=== PATIENT | female | born 1945 | race Caucasian/White ===

== ENCOUNTER 2016-05-10 16:44 | Inpatient (IN) | payer MEDICARE ==
--- NOTE | 2016-05-10 16:58 | ED ---
General Adult HPI - General Chief complaint: Neuro Symptoms/Deficit Stated complaint: facial droop, eye problem Time Seen by Provider: 05/10/16 16:45 Source: patient, RN notes reviewed Mode of arrival: wheelchair Limitations: no limitations - History of Present Illness Initial comments: This is a 70-year-old female presents to the emergency department stating that a few hours ago her granddaughter noticed that her mouth was drooping on the right. Patient states she also notices that her eyelid shut is hard on the right is a dozen the left. Patient denies any headache patient denies any numbness or weakness. Patient denies any visual disturbance or speech disturbance. Patient denies any chest pain palpitations difficulty breathing or shortness of breath per patient denies any recent fever chills or cough. Patient denies abdominal pain patient denies nausea vomiting diarrhea. Patient denies any recent injury or trauma - Related Data Home Medications Medication Instructions Recorded Confirmed Atenolol [Tenormin] 25 mg PO DAILY 12/23/13 05/10/16 Folic Acid 1 mg PO DAILY 12/23/13 05/10/16 Methotrexate Sodium [Methotrexate] 15 mg PO TH 12/23/13 05/10/16 Omeprazole [PriLOSEC] 20 mg PO AC-BID 12/23/13 05/10/16 Simvastatin [Zocor] 20 mg PO HS 12/23/13 05/10/16 Zolpidem [Ambien] 5 mg PO HS PRN 12/23/13 05/10/16 amLODIPine BESYLATE [Norvasc] 5 mg PO BID 12/23/13 05/10/16 traMADol-ACETAMINOP 37.5-325MG 1 tab PO Q4HR PRN 12/23/13 05/10/16 [Ultracet] Aspirin EC [Ecotrin] 325 mg PO DAILY 05/10/16 05/10/16 Calcium Carbonate [Calcium] 600 mg PO BID 05/10/16 05/10/16 Celecoxib [CeleBREX] 200 mg PO DAILY 05/10/16 05/10/16 Escitalopram [Lexapro] 10 mg PO DAILY 05/10/16 05/10/16 Allergies Allergy/AdvReac Type Severity Reaction Status Date / Time shellfish derived Allergy Rash/Hives Verified 05/10/16 17:18 Review of Systems ROS Statement: Those systems with pertinent positive or pertinent negative responses have been documented in the HPI. ROS Other: All systems not noted in ROS Statement are negative. Past Medical History Past Medical History: GERD/Reflux, Hypertension History of Any Multi-Drug Resistant Organisms: None Reported Past Surgical History: Cholecystectomy, Hysterectomy Additional Past Surgical History / Comment(s): abliation, breast reducion, heart cath Past Psychological History: No Psychological Hx Reported Smoking Status: Former smoker Past Alcohol Use History: None Reported Past Drug Use History: None Reported General Exam - General Exam Comments Initial Comments: GENERAL: Patient is well-developed and well-nourished. Patient is nontoxic and well- hydrated and is in no acute distress. ENT: Neck is soft and supple. No significant lymphadenopathy is noted. Oropharynx is clear. Moist mucous membranes. Neck has full range of motion without eliciting any pain. EYES: The sclera were anicteric and conjunctiva were pink and moist. Extraocular movements were intact and pupils were equal round and reactive to light. Eyelids were unremarkable. PULMONARY: Unlabored respirations. Good breath sounds bilaterally. No audible rales rhonchi or wheezing was noted. CARDIOVASCULAR: There is a regular rate and rhythm without any murmurs gallops or rubs. ABDOMEN: Soft and nontender with normal bowel sounds. No palpable organomegaly was noted. There is no palpable pulsatile mass. SKIN: Skin is clear with no lesions or rashes and otherwise unremarkable. NEUROLOGIC: Patient is alert and oriented x3. Patient has right facial droop as well as weakness in the closure of her right eyelid. Currently forehead does not appear to be involved Motor and sensory are also intact. Normal speech, volume and content. MUSCULOSKELETAL: Normal extremities with adequate strength and full range of motion. No lower extremity swelling or edema. No calf tenderness. LYMPHATICS: No significant lymphadenopathy is noted PSYCHIATRIC: Normal psychiatric evaluation. Limitations: no limitations Course Vital Signs 05/10/16 05/10/16 05/10/16 16:47 17:35 18:11 Temperature 98.2 F Pulse Rate 81 69 85 Respiratory 18 20 20 Rate Blood Pressure 165/69 142/74 129/62 O2 Sat by Pulse 95 96 97 Oximetry Medical Decision Making - Medical Decision Making EKG shows normal sinus rhythm at 72 bpm MT interval is 128 QRSs 82 QT interval is 428 QTC is 468. Patient's EKG shows no ST segment elevation or depression or T-wave abdomen is noted. - Lab Data Result diagrams: 05/10/16 17:00 05/10/16 17:00 Lab Results 05/10/16 05/10/16 05/10/16 Range/Units 17:00 17:00 17:00 WBC 9.7 (3.8-10.6) k/uL RBC 4.09 (3.80-5.40) m/uL Hgb 13.1 (11.4-16.0) gm/dL Hct 39.7 (34.0-46.0) % MCV 96.9 (80.0-100.0) fL MCH 31.9 (25.0-35.0) pg MCHC 32.9 (31.0-37.0) g/dL RDW 14.9 (11.5-15.5) % Plt Count 230 (150-450) k/uL Neutrophils % 60 % Lymphocytes % 26 % Monocytes % 7 % Eosinophils % 4 % Basophils % 1 % Neutrophils # 5.8 (1.3-7.7) k/uL Lymphocytes # 2.5 (1.0-4.8) k/uL Monocytes # 0.7 (0-1.0) k/uL Eosinophils # 0.3 (0-0.7) k/uL Basophils # 0.1 (0-0.2) k/uL PT (9.0-12.0) sec INR (<1.1) APTT (22.0-30.0) sec Sodium 141 (137-145) mmol/L Potassium 4.1 (3.5-5.1) mmol/L Chloride 102 (98-107) mmol/L Carbon Dioxide 26 (22-30) mmol/L Anion Gap 13 mmol/L BUN 20 H (7-17) mg/dL Creatinine 0.81 (0.52-1.04) mg/dL Est GFR (MDRD) Af Amer >60 (>60 ml/min/1.73 sqM) Est GFR (MDRD) Non-Af >60 (>60 ml/min/1.73 sqM) Glucose 114 H (74-99) mg/dL Calcium 9.6 (8.4-10.2) mg/dL Total Bilirubin 0.6 (0.2-1.3) mg/dL AST 26 (14-36) U/L ALT 33 (9-52) U/L Alkaline Phosphatase 116 (38-126) U/L Total Creatine Kinase 60 (30-135) U/L CK-MB (CK-2) 0.8 (0.0-2.4) ng/mL CK-MB (CK-2) Rel Index 1.3 Troponin I <0.012 (0.000-0.034) ng/mL Total Protein 7.6 (6.3-8.2) g/dL Albumin 4.5 (3.5-5.0) g/dL 05/10/16 Range/Units 17:00 WBC (3.8-10.6) k/uL RBC (3.80-5.40) m/uL Hgb (11.4-16.0) gm/dL Hct (34.0-46.0) % MCV (80.0-100.0) fL MCH (25.0-35.0) pg MCHC (31.0-37.0) g/dL RDW (11.5-15.5) % Plt Count (150-450) k/uL Neutrophils % % Lymphocytes % % Monocytes % % Eosinophils % % Basophils % % Neutrophils # (1.3-7.7) k/uL Lymphocytes # (1.0-4.8) k/uL Monocytes # (0-1.0) k/uL Eosinophils # (0-0.7) k/uL Basophils # (0-0.2) k/uL PT 9.8 (9.0-12.0) sec INR 1.0 (<1.1) APTT 23.7 (22.0-30.0) sec Sodium (137-145) mmol/L Potassium (3.5-5.1) mmol/L Chloride (98-107) mmol/L Carbon Dioxide (22-30) mmol/L Anion Gap mmol/L BUN (7-17) mg/dL Creatinine (0.52-1.04) mg/dL Est GFR (MDRD) Af Amer (>60 ml/min/1.73 sqM) Est GFR (MDRD) Non-Af (>60 ml/min/1.73 sqM) Glucose (74-99) mg/dL Calcium (8.4-10.2) mg/dL Total Bilirubin (0.2-1.3) mg/dL AST (14-36) U/L ALT (9-52) U/L Alkaline Phosphatase (38-126) U/L Total Creatine Kinase (30-135) U/L CK-MB (CK-2) (0.0-2.4) ng/mL CK-MB (CK-2) Rel Index Troponin I (0.000-0.034) ng/mL Total Protein (6.3-8.2) g/dL Albumin (3.5-5.0) g/dL Disposition Clinical Impression: Cerebrovascular accident, See's palsy, Meningioma Disposition: ADMITTED IP TO THIS [facility] Time of Disposition: 18:44
[2016-05-10 17:13] LABS: Basophils # (A) 0.1 k/uL (0-0.2); Basophils % (A) 1 %; CH 32.1; CHCM 33.3; Eosinophils # (A) 0.3 k/uL (0-0.7); Eosinophils % (A) 4 %; HCT 39.7 % (34.0-46.0); HDW 2.74; HGB 13.1 gm/dL (11.4-16.0); Luc # (Auto) 0.27; Luc % (Auto) 3; Lymphocytes # (A) 2.5 k/uL (1.0-4.8); Lymphocytes % (A) 26 %; MCH 31.9 pg (25.0-35.0); MCHC 32.9 g/dL (31.0-37.0); MCV 96.9 fL (80.0-100.0); Mean Platelet Volume 7.7; Monocytes # (A) 0.7 k/uL (0-1.0); Monocytes % (A) 7 %; Neutrophils # (A) 5.8 k/uL (1.3-7.7); Neutrophils % (A) 60 %; RBC 4.09 m/uL (3.80-5.40); RDW 14.9 % (11.5-15.5); WBC 9.7 k/uL (3.8-10.6)
[2016-05-10 17:20] LABS: ALT 33 U/L (9-52); AST 26 U/L (14-36); Alkaline Phosphatase 116 U/L (38-126); Anion Gap 13 mmol/L; Blood Urea Nitrogen 20 mg/dL (7-17); Calcium 9.6 mg/dL (8.4-10.2); Carbon Dioxide 26 mmol/L (22-30); Chloride 102 mmol/L (98-107); Glucose 114 mg/dL (74-99); Non-African American GFR(MDRD) >60 (>60 ml/min/1.73 sqM); Potassium 4.1 mmol/L (3.5-5.1); Sodium 141 mmol/L (137-145); Total Bilirubin 0.6 mg/dL (0.2-1.3); Total Protein 7.6 g/dL (6.3-8.2)
[2016-05-10 17:31] LABS: Creatine Kinase 60 U/L (30-135)
[2016-05-10 17:32] LABS: Partial Thromboplastin Time 23.7 sec (22.0-30.0); Prothrombin Time 9.8 sec (9.0-12.0)
[2016-05-10 17:44] LABS: Creatine Kinase MB 0.8 ng/mL (0.0-2.4); Troponin I <0.012 ng/mL (0.000-0.034)
--- NOTE | 2016-05-10 17:44 | CT ---
EXAMINATION TYPE: CT brain wo con DATE OF EXAM: 05/10/2016 5:26 PM COMPARISON: NONE HISTORY: PT states of left facial droop. CT DLP: 938.0 mGycm Automated exposure control for dose reduction was used. FINDINGS: There is a high attenuation mass involving the left side of the sphenoid bone at the greater wing and anterior clinoid process. This measures 3.2 x 2.4 cm. There is no midline shift. I do not see a defi nite sellar mass. The ventricles have normal size. There is no hydrocephalus. Calvarium is intact. IMPRESSION: There is a high attenuation mass that is somewhat wrapped around the anterior and posterior clinoid p rocesses consistent with a large sphenoid wing meningioma. Hemorrhage in the mass cannot be entirely excluded. There is high attenuation in the mass that is probably calcium. No hydrocephalus. MR scan o r contrast CT scan could probably confirm the presence of a meningioma.
--- NOTE | 2016-05-10 17:45 | XR ---
EXAMINATION TYPE: XR chest 2V DATE OF EXAM: 05/10/2016 5:32 PM COMPARISON: 11/28/2015 HISTORY: Left side facial droop TECHNIQUE: Frontal and lateral views of the chest are obtained. FINDINGS: Heart is normal. Thoracic aorta is atheromatous. Lungs are clear of infiltrate. There is n o heart failure. There is no pleural effusion. There are no hilar masses. IMPRESSION: No active cardiopulmonary disease. No change.
[2016-05-10] MEDS ORDERED: RX INFO: IV CONTRAST WAS GIVEN 1 EACH MISC MISCELLANE PRN (17:57)
[2016-05-10] MEDS ORDERED: diphenhydrAMINE 50 MG/ML 1 ML VIAL IVP STA (18:02)
[2016-05-10] MEDS ORDERED: FAMOTIDINE 20 MG/2 ML VIAL IV STA (18:02)
[2016-05-10] MEDS ORDERED: methylPREDNISolone SOD SUCCI 125 MG/2 ML VIAL IV STA (18:02)
--- NOTE | 2016-05-10 18:41 | CT ---
EXAMINATION TYPE: CT brain w con DATE OF EXAM: 05/10/2016 6:32 PM COMPARISON: Today HISTORY: R/O bleed vs. Mass CT DLP: 962.8 mGycm Automated exposure control for dose reduction was used. CONTRAST: CT scan of the head is performed with IV Contrast, patient injected with 100 mL of Omnipaque 300. FINDINGS: There is a densely enhancing 3.5 x 3 x 2.5 cm mass on the left side at the greater wing of the spheno id bone and involving the anterior and posterior clinoid process. This is consistent with a sphenoid wing meningioma. There is no evidence of hemorrhage. There is no hydrocephalus. No other lesion is id entified. The mass encroaches upon the sella turcica from the left side. IMPRESSION: Densely enhancing extra-axial mass has features of a large sphenoid wing meningioma. No evidence of h emorrhage.
[2016-05-10 20:02] VITALS: BMI 28.3
[2016-05-10] MEDS ORDERED: traMADol-ACETAMINOP 37.5-325MG 1 EACH TAB PO PRN (20:57)
[2016-05-10] MEDS ORDERED: ARTIFICIAL TEARS-HYPROMELLOSE DROPS 15 ML BTL BOTH EYES PRN (20:59)
[2016-05-10] MEDS: ATORVASTATIN 10 MG TAB PO SCH (22:28)
[2016-05-10] MEDS: predniSONE 20 MG TAB PO SCH (22:28)
[2016-05-10] MEDS: CALCIUM CARBONATE 500 MG CHEWABLE PO SCH (22:28)
[2016-05-10] MEDS: valACYclovir 500 MG TAB PO SCH (22:28)
[2016-05-10] MEDS: amLODIPine 5 MG TAB PO SCH (22:28)
[2016-05-10] MEDS: ZOLPIDEM 5 MG TAB PO PRN (22:29)
[2016-05-11] MEDS: PANTOPRAZOLE 40 MG TABLET PO SCH ×2 (06:18→17:40)
[2016-05-11] MEDS: amLODIPine 5 MG TAB PO SCH ×2 (10:01→20:35)
[2016-05-11] MEDS: ASPIRIN 325 MG TAB PO SCH (10:01)
[2016-05-11] MEDS: ATENOLOL 25 MG TAB PO SCH (10:02)
[2016-05-11] MEDS: FOLIC ACID 1 MG TAB PO SCH (10:02)
[2016-05-11] MEDS: MELOXICAM 7.5 MG TAB PO SCH (10:03)
[2016-05-11] MEDS: predniSONE 20 MG TAB PO SCH (10:04)
[2016-05-11] MEDS: valACYclovir 500 MG TAB PO SCH ×2 (10:05→20:36)
[2016-05-11] MEDS: CALCIUM CARBONATE 500 MG CHEWABLE PO SCH ×2 (10:58→20:35)
[2016-05-11] MEDS ORDERED: Magnesium Replacement Protocol 1 EACH MISC MISCELLANE PRN (11:29)
[2016-05-11] MEDS ORDERED: Potassium Replacement Protocol 1 EACH MISC MISCELLANE PRN (11:29)
--- NOTE | 2016-05-11 11:32 | US ---
EXAMINATION TYPE: US carotid duplex BILAT DATE OF EXAM: 05/11/2016 8:49 AM COMPARISON: NONE CLINICAL HISTORY: Stenosis. Pt states facial drooping and slurred speech EXAM MEASUREMENTS: RIGHT: Peak Systolic Velocity (PSV) cm/sec ----- Right CCA: 75.7 ----- Right ICA: 139.7 ----- Right ECA: 116.1 ICA/CCA ratio: 1.8 RIGHT: End Diastole cm/sec ----- Right CCA: 20.8 ----- Right ICA: 35.3 ----- Right ECA: 0.0 LEFT: Peak Systolic Velocity (PSV) cm/sec ----- Left CCA: 96.9 ----- Left ICA: 151.5 ----- Left ECA: 197.6 ICA/CCA ratio: 1.6 LEFT: End Diastole cm/sec ----- Left CCA: 19.3 ----- Left ICA: 37.2 ----- Left ECA: 19.2 VERTEBRALS (direction of flow): Right Vertebral: Antegrade Left Vertebral: Antegrade IMPRESSION: Elevated velocities, more on left, with heterogeneous plaque bilaterally. No hemodynami kary significant stenosis. Criteria for Assigning % of Stenosis / Diameter reduction (Estimation based on the indirect measurements of the internal carotid artery velocities (ICA PSV). 1. Normal (no stenosis)=ICA PSV < 125 cm/s: ratio < 2.0: ICA EDV<40 cm/s. 2. Less than 50% stenosis=ICA PSV < 125 cm/s: ratio < 2.0: ICA EDV<40 cm/s. 3. 50 to 69% stenosis=ICA PSV of 125 to 230 cm/s: ration 2.0 ? 4.0: ICA EDV 40-100 cm/s. 4. Greater than 70% stenosis to near occlusion= ICA PSV > 230 cm/s: ratio > 4.0: ICA EDV > 100 cm/s. 5. Near occlusion= ICA PSV velocities may be low or undetectable: variable ratio and ICA EDV. 6. Total occlusion=unable to detect flow.
--- NOTE | 2016-05-11 12:01 | P.CNNES ---
History of Present Illness Consult date: 05/11/16 Reason for Consult: Patient with right sided facial droop and possible stroke. History of Present Illness: This patient is a 70-year-old right-handed white female who was in her usual state of health until yesterday. Patient was at home and apparently her granddaughter noticed that she had sudden onset of right-sided facial drooping. The patient immediately checked in the mirror and noticed that she was having a drooping on the right side of her face. She was having trouble closing her right eyelid since well. She denied any headache or change in her speech during this event. The granddaughter recommended that she go to the emergency room for evaluation. She was seen in the ER by Dr. Calvin who recommended she have a computed tomography scan of the brain. CAT scan of the brain was done and revealed a densely enhancing extra-axial mass involving the left sphenoid wing suggesting possible sphenoid wing meningioma. There was no evidence of hydrocephalus or other extraneous lesions. Patient has no previous history of having computed tomography scan of the brain done in the past. This appears to be an incidental finding on CAT scan of the brain done yesterday. Patient denies any headache. She has no hearing loss or visual changes. On examination she is noted to have right-sided facial droop. This appears to be a lower motor neuron facial weakness pattern. She denies any recent fever or chills. She denies any recent episode of ear infections. She did not experience any change in taste sensation since the episode yesterday. She was evaluated in the ER by Dr. Calvin and there was concern for possibility of brainstem stroke. She was subsequently admitted to the hospital. Her clinical history is more suggestive of an acute right-sided Merritt's palsy. This will be verified on neurological examination today. She has no previous history of having Merritt's palsy. She denies any changes in her hearing levels since the episode yesterday. She has no previous history of TIA or stroke. We've reviewed the CAT scan results of the brain with the patient. We have recommended an MRI of the brain for further evaluation. This should be further followed up with neurosurgery regarding the sphenoid wing meningioma. Patient otherwise seems to be doing well today. We would recommend that she be started on a Medrol Dosepak for further management of acute right-sided Merritt's palsy. Neurology is now been consulted for further evaluation and recommendations. Review of Systems Constitutional: Denies chills, Denies fever Eyes: denies blurred vision, denies pain Ears, nose, mouth and throat: Denies headache, Denies sore throat Cardiovascular: Denies chest pain, Denies shortness of breath Respiratory: Denies cough Gastrointestinal: Denies abdominal pain, Denies diarrhea, Denies nausea, Denies vomiting Genitourinary: Denies dysuria, Denies hematuria Musculoskeletal: Denies myalgias Integumentary: Denies pruritus, Denies rash Neurological: Reports paralysis, Denies numbness, Denies weakness Psychiatric: Denies anxiety, Denies depression Endocrine: Denies fatigue, Denies weight change Past Medical History Past Medical History: Coronary Artery Disease (CAD), GERD/Reflux, Hypertension, Rheumatoid Arthritis (RA) Additional Past Medical History / Comment(s): Pt states she has something wrong with her aorta but isn't sure what. History of Any Multi-Drug Resistant Organisms: None Reported Past Surgical History: Cholecystectomy, Hysterectomy Additional Past Surgical History / Comment(s): abliation, breast reducion, heart cath Past Psychological History: No Psychological Hx Reported Smoking Status: Former smoker Past Alcohol Use History: None Reported Past Drug Use History: None Reported - Past Family History Mother Family Medical History: Diabetes Mellitus Brother(s) Family Medical History: Diabetes Mellitus, Rheumatoid Arthritis (RA) Sister(s) Family Medical History: Rheumatoid Arthritis (RA) Medications and Allergies Home Medications Medication Instructions Recorded Confirmed Type Atenolol [Tenormin] 25 mg PO DAILY 12/23/13 05/10/16 History Folic Acid 1 mg PO DAILY 12/23/13 05/10/16 History Methotrexate Sodium [Methotrexate] 15 mg PO TH 12/23/13 05/10/16 History Omeprazole [PriLOSEC] 20 mg PO AC-BID 12/23/13 05/10/16 History Simvastatin [Zocor] 20 mg PO HS 12/23/13 05/10/16 History Zolpidem [Ambien] 5 mg PO HS PRN 12/23/13 05/10/16 History amLODIPine BESYLATE [Norvasc] 5 mg PO BID 12/23/13 05/10/16 History traMADol-ACETAMINOP 37.5-325MG 1 tab PO Q4HR PRN 12/23/13 05/10/16 History [Ultracet] Aspirin EC [Ecotrin] 325 mg PO DAILY 05/10/16 05/10/16 History Calcium Carbonate [Calcium] 600 mg PO BID 05/10/16 05/10/16 History Celecoxib [CeleBREX] 200 mg PO DAILY 05/10/16 05/10/16 History Allergies Allergy/AdvReac Type Severity Reaction Status Date / Time shellfish derived Allergy Rash/Hives Verified 05/10/16 17:18 Physical Examination - Vital Signs Vital Signs: Vital Signs Temp Pulse Pulse Resp BP BP Pulse Ox 05/11/16 09:44 97.2 F L 84 16 133/69 94 L 05/11/16 03:56 97 F L 80 16 129/70 95 05/10/16 23:42 97 F L 78 16 125/65 95 05/10/16 19:44 97.7 F 68 16 142/73 93 L 05/10/16 19:42 97.8 F 71 18 142/73 93 L 05/10/16 19:08 98.2 F 74 20 126/78 96 Intake and Output 05/10/16 05/11/16 05/11/16 22:59 06:59 14:59 Intake Total 310 10 120 Output Total 300 400 Balance 310 -290 -280 Intake: IV 10 10 0.9% NS flush 10 mL 10 10 Oral 300 120 Output: Urine 300 400 Other: # Voids 0 1 0 Weight 74.843 kg 78.4 kg - Constitutional General appearance: average body habitus, cooperative - EENT EENT: mucous membranes moist - Respiratory Respiratory: lungs clear, normal breath sounds - Cardiovascular Cardiovascular: regular rate, normal S1, normal S2 Extremities: no peripheral edema bilaterally - Gastrointestinal Gastrointestinal: normoactive bowel sounds - Integumentary Integumentary: normal - Neurologic Cranial nerve examination: PERRL, EOMI, VFF, V1/V2/V3 grossly intact, tongue midline, intact gag reflex, facial droop (Patient has a right lower motor neuron facial weakness pattern on exam.) Speech examination: intact Sensorimotor examination: intact Detailed motor examination: grossly full strength in all extremities Motor examination - right side: 5/5: biceps, triceps, wrist flexion, wrist extension, fire sprinkler fitter, hip flexors, knee extensors, dorsiflexion, toe extension (EHL) , plantarflexion Motor examination - left side: 5/5: biceps, triceps, wrist flexion, wrist extension, fire sprinkler fitter, hip flexors, knee extensors, dorsiflexion, toe extension (EHL) , plantarflexion Detailed sensory examination: intact Reflex and gait examination: intact Reflexes: 1+: ankle, bicep, knee, tricep - Musculoskeletal Musculoskeletal: no pain - Psychiatric Psychiatric: mood/affect appropriate, cooperative Results - Laboratory Findings CBC and BMP: 05/10/16 17:00 05/10/16 17:00 Assessment and Plan (1) Merritt's palsy Status: Acute Code(s): G51.0 - MERRITT'S PALSY (2) 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 She was brought into the emergency room yesterday and underwent a computed tomography scan of the brain. A CAT scan of the brain revealed evidence of a large left sphenoid wing meningioma. Her right -sided facial weakness was felt to possibly represent a stroke versus Merritt's palsy. Her neurological examination today reveals clinical findings of a idiopathic right-sided Merritt's palsy. We have recommended that she undergo an MRI of the brain for further evaluation of the left sphenoid wing meningioma. Would also recommend a course of steroid for treatment of the acute Merritt's palsy. She is also instructed to patch the right eye when sleeping at night. She is to continue to use artificial tears 3-4 times a day. Patient will be further evaluated after MRI testing is completed. Patient will likely need further neurosurgical evaluation for this sphenoid wing meningioma. We will continue to follow her progress closely during this admission. Overall prognosis at this time remains guarded. Time with Patient: Greater than 30
--- NOTE | 2016-05-11 13:38 | P.HPIM ---
History of Present Illness Chief Complaint: Right facial droop This is 70-year-old female with past medical history noted below who presented to the hospital with right facial droop. Patient said that she was doing fairly well up until yesterday when her daughter noticed significant right facial droop and she was having trouble closing her right eyelid. Patient was concern and came to the emergency room for further evaluation. Patient denies any headache or vision change. No prior stroke. No muscle weakness or numbness anywhere in her body. No difficulty with her speech. Patient was evaluated in the emergency room and computed tomography scan of the brain showed no evidence of acute stroke. There was an incidental hemangioma noted on CAT scan. Patient was admitted to the hospital for further evaluation. Review of Systems Review of system: 14 points review of systems were obtained and were negative except to what were mentioned in the HPI. Past Medical History Past Medical History: Coronary Artery Disease (CAD), GERD/Reflux, Hypertension, Rheumatoid Arthritis (RA) Additional Past Medical History / Comment(s): Pt states she has something wrong with her aorta but isn't sure what. History of Any Multi-Drug Resistant Organisms: None Reported Past Surgical History: Cholecystectomy, Hysterectomy Additional Past Surgical History / Comment(s): abliation, breast reducion, heart cath Past Psychological History: No Psychological Hx Reported Smoking Status: Former smoker Past Alcohol Use History: None Reported Past Drug Use History: None Reported - Past Family History Mother Family Medical History: Diabetes Mellitus Brother(s) Family Medical History: Diabetes Mellitus, Rheumatoid Arthritis (RA) Sister(s) Family Medical History: Rheumatoid Arthritis (RA) Medications and Allergies Home Medications Medication Instructions Recorded Confirmed Type Atenolol [Tenormin] 25 mg PO DAILY 12/23/13 05/10/16 History Folic Acid 1 mg PO DAILY 12/23/13 05/10/16 History Methotrexate Sodium [Methotrexate] 15 mg PO TH 12/23/13 05/10/16 History Omeprazole [PriLOSEC] 20 mg PO AC-BID 12/23/13 05/10/16 History Simvastatin [Zocor] 20 mg PO HS 12/23/13 05/10/16 History Zolpidem [Ambien] 5 mg PO HS PRN 12/23/13 05/10/16 History amLODIPine BESYLATE [Norvasc] 5 mg PO BID 12/23/13 05/10/16 History traMADol-ACETAMINOP 37.5-325MG 1 tab PO Q4HR PRN 12/23/13 05/10/16 History [Ultracet] Aspirin EC [Ecotrin] 325 mg PO DAILY 05/10/16 05/10/16 History Calcium Carbonate [Calcium] 600 mg PO BID 05/10/16 05/10/16 History Celecoxib [CeleBREX] 200 mg PO DAILY 05/10/16 05/10/16 History Allergies Allergy/AdvReac Type Severity Reaction Status Date / Time shellfish derived Allergy Rash/Hives Verified 05/10/16 17:18 Physical Exam Vitals: Vital Signs Temp Pulse Pulse Resp BP BP Pulse Ox 05/11/16 09:44 97.2 F L 84 16 133/69 94 L 05/11/16 03:56 97 F L 80 16 129/70 95 05/10/16 23:42 97 F L 78 16 125/65 95 05/10/16 19:44 97.7 F 68 16 142/73 93 L 05/10/16 19:42 97.8 F 71 18 142/73 93 L 05/10/16 19:08 98.2 F 74 20 126/78 96 Intake and Output 05/10/16 05/11/16 05/11/16 22:59 06:59 14:59 Intake Total 310 10 360 Output Total 300 400 Balance 310 -290 -40 Intake: IV 10 10 0.9% NS flush 10 mL 10 10 Oral 300 360 Output: Urine 300 400 Other: # Voids 0 1 0 Weight 74.843 kg 78.4 kg General: The patient is awake and alert, in no distress. There is evidence of right facial drooping Neck: The neck is supple, there is no JVD. Cardiovascular: Normal S1-S2, no S3-S4, no murmurs. Respiratory: Lungs clear to auscultation bilaterally Gastrointestinal: Abdomen is soft, nontender Musculoskeletal: There is no pedal edema. Neurological:. Speech is normal. Skin: Skin is warm and dry Results CBC & Chem 7: 05/10/16 17:00 05/10/16 17:00 Thrombosis Risk Factor Assmnt - Choose All That Apply Any of the Below Risk Factors Present?: Yes Each Factor Represents 1 point: Obesity (BMI >25) Each Risk Factor Represents 2 Points: Age 61-74 years Thrombosis Risk Factor Assessment Total Risk Factor Score: 3 Thrombosis Risk Factor Assessment Level: Moderate Risk Assessment and Plan Plan: 1. See's palsy 2. 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 Mixed hyperlipidemia 4. Essential hypertension: Blood pressure well-controlled 5. Underlying rheumatoid arthritis This is a 70-year-old female with past medical history noted above who presented with right facial droop. Computed tomography scan of the brain showed no acute stroke. Left hemangioma noted which will be further evaluated with MRI ordered today. Patient underwent the carotid Doppler with no hemodynamically significant stenosis. She was seen and evaluated by neurology. She is currently being treated with Medrol Dosepak as well as artificial tears to the left eye. Patient was reassured. She will need to have a consultation with a neurosurgeon sometime next week after her discharge for further assessment of the abdomen hemangioma that is most likely chronic. Possible discharge home tomorrow.
[2016-05-11] MEDS: ATORVASTATIN 10 MG TAB PO SCH (20:35)
[2016-05-11] MEDS: HEPARIN SODIUM,PORCINE 5,000 UNIT/ML 1 ML VIAL SQ SCH (20:43)
[2016-05-11] MEDS: ZOLPIDEM 5 MG TAB PO PRN (22:34)
[2016-05-12 06:08] LABS: Basophils % (A) 0 %; CH 31.7; CHCM 32.7; Eosinophils % (A) 0 %; HCT 37.6 % (34.0-46.0); HDW 2.64; HGB 11.9 gm/dL (11.4-16.0); Luc % (Auto) 1; Lymphocytes # (A) 2.1 k/uL (1.0-4.8); Lymphocytes % (A) 10 %; MCH 30.8 pg (25.0-35.0); MCHC 31.6 g/dL (31.0-37.0); MCV 97.3 fL (80.0-100.0); Mean Platelet Volume 7.2; Monocytes % (A) 5 %; Neutrophils # (A) 18.4 k/uL (1.3-7.7); Neutrophils % (A) 84 %; RBC 3.87 m/uL (3.80-5.40); RDW 14.8 % (11.5-15.5); WBC 21.9 k/uL (3.8-10.6)
[2016-05-12 06:18] LABS: Anion Gap 9 mmol/L; Blood Urea Nitrogen 19 mg/dL (7-17); Calcium 9.5 mg/dL (8.4-10.2); Carbon Dioxide 29 mmol/L (22-30); Chloride 106 mmol/L (98-107); Glucose 130 mg/dL (74-99); Magnesium 2.1 mg/dL (1.6-2.3); Non-African American GFR(MDRD) >60 (>60 ml/min/1.73 sqM); Potassium 4.2 mmol/L (3.5-5.1); Sodium 144 mmol/L (137-145)
[2016-05-12] MEDS: PANTOPRAZOLE 40 MG TABLET PO SCH ×2 (06:18→16:50)
[2016-05-12] MEDS: methylPREDNISolone 4 MG TAB TAPER PO SCH (08:27)
[2016-05-12] MEDS: HEPARIN SODIUM,PORCINE 5,000 UNIT/ML 1 ML VIAL SQ SCH ×2 (08:27→21:45)
[2016-05-12] MEDS: MELOXICAM 7.5 MG TAB PO SCH (08:27)
[2016-05-12] MEDS: ATENOLOL 25 MG TAB PO SCH (08:27)
[2016-05-12] MEDS: FOLIC ACID 1 MG TAB PO SCH (08:27)
[2016-05-12] MEDS: CALCIUM CARBONATE 500 MG CHEWABLE PO SCH ×2 (08:28→21:43)
[2016-05-12] MEDS: ASPIRIN 325 MG TAB PO SCH (08:28)
[2016-05-12] MEDS: amLODIPine 5 MG TAB PO SCH ×2 (08:28→21:43)
[2016-05-12] MEDS: valACYclovir 500 MG TAB PO SCH ×2 (08:30→21:43)
--- NOTE | 2016-05-12 15:41 | MR ---
EXAMINATION TYPE: MR brain wo/w con DATE OF EXAM: 05/12/2016 3:29 PM COMPARISON: Previous CT scan of the brain dated 05/10/2016. HISTORY: Left sphenoid wing meningioma TECHNIQUE: Multiplanar, multiecho imaging of the brain was obtained with and without intravenous adm inistration of 15 mL intravenous MultiHance. FINDINGS: There is a 2.7 x 3.4 x 3.3 cm heterogenous slightly enhancing mass arising along the left s phenoid wing. This appears extra-axial and displacing adjacent brain tissue. No other enhancing lesio ns are seen. Midline structures are unremarkable. There is a normal craniocervical junction. Echoplanar diffusion imaging shows no evidence of restricted diffusion. There are normal vascular flow voids. There is dolichoectasia of the vertebrobasilar system on the le ft and this is mildly deforming the brainstem. The orbits appear normal. There is no evidence of a CP angle mass lesion. There are innumerable high signal FLAIR lesions in the deep white matter tracts of the cerebral hemis pheres. These are likely on the basis small vessel disease. I do not see evidence of midline shift or intracranial blood. IMPRESSION: 1. PROBABLE LEFT-SIDED SPHENOID WING MENINGIOMA. 2. 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 3. SCATTERED HIGH SIGNAL FLAIR LESIONS LIKELY ON THE BASIS OF SMALL VESSEL DISEASE. OTHER CAUSES OF D EMYELINATION ARE NOT EXCLUDED BUT FELT TO BE LESS LIKELY IN THIS AGE GROUP.
--- NOTE | 2016-05-12 16:18 | P.PN ---
Subjective Patient here with right sided facial droop. Concerns for See's palsy. Started on a prednisone taper. Underwent MRI today results are abnormal. We' ll have patient evaluated by neurology again this evening. Patient denies any chest pain, shortness of breath, nausea or vomiting. Denies any bowel movement changes or urinary symptoms. She's eating and swallowing without difficulty. Objective - Vital Signs Vital signs: Vital Signs Temp 98.2 F 05/12/16 12:02 Pulse 74 05/12/16 12:02 Resp 16 05/12/16 12:02 BP 139/83 05/12/16 12:02 Pulse Ox 98 05/12/16 12:02 Intake & Output 05/11/16 05/12/16 05/12/16 18:59 06:59 18:59 Intake Total 478 20 360 Output Total 1400 750 800 Balance -922 -730 -440 Weight 77.4 kg Intake: IV 20 0.9% NS flush 10 mL 20 Oral 478 360 Output: Urine 1400 750 800 Other: Voiding Method Toilet Toilet # Voids 1 1 # Bowel Movements 0 - Exam Head normocephalic Neck supple Lungs clear to auscultation bilaterally no wheezing or crackles Heart regular rate and rhythm S1-S2, no rub or gallop Abdomen is soft nontender nondistended positive bowel sounds no hepatosplenomegaly Extremities no edema Neuro alert and orientated to 3. Right facial droop. 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 Right facial droop concerns for See's palsy. Patient was started on Medrol Dosepak. However, patient has an abnormal MRI showing probable left- sided sphenoid wing meningioma. Dolichoectasia of the vertebrobasilar system mildly indenting the brain stem on the left. Scattered high signal flair lesions likely on the basis of small vessel disease. We'll have nursing staff notify neurology and have patient evaluated by neurology tonight 2. Mixed hyperlipidemia 3. Essential hypertension: Blood pressure stable 4. History of rheumatoid arthritis DVT prophylaxis subcu heparin
--- NOTE | 2016-05-12 19:22 | P.PN ---
Subjective This patient is a 70-year-old right-handed white female who was initially admitted to hospital yesterday with sudden onset of facial weakness. 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 She was started on a Medrol Dosepak yesterday for further treatment. Patient underwent MRI of the brain today which confirms evidence of a left sphenoid wing meningioma. We have recommended that this be further evaluated with neurosurgery in the outpatient clinic. At this time there is no connection between the finding of the meningioma and her Merritt's palsy. There was some vascular changes noted in the vertebrobasilar system which is nonspecific. We have mentioned to the patient that she should be seen in the neurosurgery clinic for further evaluation of the sphenoid wing meningioma. At this time it is not felt to be a cause for alarm. She may schedule for a neurosurgery consultation is in his discharge from the hospital. There was no evidence of any brainstem ischemia based on the MRI report. Patient continues to do fairly well since her admission. She is encouraged to perform exercises for treatment of the acute Merritt's palsy. We've advised the patient to continue with exercises to the right side of the face for the Merritt's palsy. She is also the patch GI at night when sleeping. She may complete her course of the Medrol Dosepak upon discharge. She most likely will be discharged home tomorrow. Her recovery remains stable and we will continue close neurological follow-up for the patient. Patient can schedule for a follow -up in the outpatient neurology clinic in 2-3 weeks. Objective - Vital Signs Vital signs: Vital Signs Temp 97.7 F 05/12/16 16:00 Pulse 74 05/12/16 16:00 Resp 16 05/12/16 16:00 BP 147/71 05/12/16 16:00 Pulse Ox 94 L 05/12/16 16:00 Intake & Output 05/11/16 05/12/16 05/12/16 18:59 06:59 18:59 Intake Total 478 20 600 Output Total 2219 189 7855 Balance -922 -730 -600 Weight 77.4 kg Intake: IV 20 0.9% NS flush 10 mL 20 Oral 478 600 Output: Urine 7047 164 5214 Other: Voiding Method Toilet Toilet # Voids 1 1 # Bowel Movements 0 - Exam Physical examination: PHYSICAL EXAMINATION: Patient is resting comfortably in bed. VITAL SIGNS: Blood pressure is [147/71]. Heart rate is [64]. Respiration is [16] . Temperature is [97.7]. HEENT: Head is atraumatic, neck is supple, there were no carotid bruits. CHEST: Lungs are clear to auscultation and percussion. CARDIAC: S1, S2 normal rate and rhythm. There is no murmur. ABDOMEN: Soft and nontender. Bowel sounds are present. EXTREMITIES: There is no pedal edema. Peripheral pulses are present. Neurological examination: Patient continues to show evidence of a mild right-sided idiopathic Merritt's palsy. No other findings on neurological examination at this time. 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 She underwent a computed tomography scan of the brain which revealed a possible incidental finding of a left sphenoid wing meningioma. She underwent MRI of the brain today which did reveal evidence of a 2.7 x 3.4 cm enhancing mass in the left sphenoid wing. Impression of the MRIs that this represents a left sphenoid wing meningioma. We have recommended the patient to have this evaluated in the outpatient neurosurgery clinic as soon as possible after discharge. She is to continue exercises for the Merritt's palsy as well as patching the eye at night. She is to complete her course of the Medrol Dosepak. She may be discharged home tomorrow and should follow-up in the outpatient neurology clinic in 2-3 weeks. Her overall prognosis at this time remains guarded.
[2016-05-12] MEDS: ATORVASTATIN 10 MG TAB PO SCH (21:43)
[2016-05-12] MEDS: ZOLPIDEM 5 MG TAB PO PRN (21:51)
[2016-05-13] MEDS: PANTOPRAZOLE 40 MG TABLET PO SCH (06:45)
[2016-05-13 07:56] LABS: Basophils # (A) 0.1 k/uL (0-0.2); Basophils % (A) 0 %; CH 31.8; CHCM 32.6; Eosinophils # (A) 0.1 k/uL (0-0.7); Eosinophils % (A) 1 %; HDW 2.61; HGB 12.9 gm/dL (11.4-16.0); Luc # (Auto) 0.39; Luc % (Auto) 2; Lymphocytes # (A) 2.9 k/uL (1.0-4.8); Lymphocytes % (A) 17 %; MCH 31.5 pg (25.0-35.0); MCHC 32.2 g/dL (31.0-37.0); MCV 97.6 fL (80.0-100.0); Mean Platelet Volume 7.1; Monocytes # (A) 1.1 k/uL (0-1.0); Monocytes % (A) 6 %; Neutrophils # (A) 12.7 k/uL (1.3-7.7); Neutrophils % (A) 74 %; RDW 15.1 % (11.5-15.5); WBC 17.2 k/uL (3.8-10.6); WBC (Perox) 17.64
[2016-05-13 08:01] LABS: Anion Gap 10 mmol/L; Blood Urea Nitrogen 21 mg/dL (7-17); Calcium 9.5 mg/dL (8.4-10.2); Carbon Dioxide 29 mmol/L (22-30); Chloride 103 mmol/L (98-107); Glucose 115 mg/dL (74-99); Magnesium 2.2 mg/dL (1.6-2.3); Non-African American GFR(MDRD) >60 (>60 ml/min/1.73 sqM); Potassium 4.2 mmol/L (3.5-5.1); Sodium 142 mmol/L (137-145)
[2016-05-13 08:28] VITALS: BP 117/65; PULSE 69; RESP 18; TEMP 97.2
[2016-05-13] MEDS: FOLIC ACID 1 MG TAB PO SCH (08:54)
[2016-05-13] MEDS: MELOXICAM 7.5 MG TAB PO SCH (08:54)
[2016-05-13] MEDS: valACYclovir 500 MG TAB PO SCH (08:55)
[2016-05-13] MEDS: ATENOLOL 25 MG TAB PO SCH (08:55)
[2016-05-13] MEDS: CALCIUM CARBONATE 500 MG CHEWABLE PO SCH (08:55)
[2016-05-13] MEDS: ASPIRIN 325 MG TAB PO SCH (08:55)
[2016-05-13] MEDS: methylPREDNISolone 4 MG TAB TAPER PO SCH (08:55)
[2016-05-13] MEDS: amLODIPine 5 MG TAB PO SCH (08:55)
[2016-05-13] MEDS: HEPARIN SODIUM,PORCINE 5,000 UNIT/ML 1 ML VIAL SQ SCH (08:58)
--- NOTE | 2016-05-13 09:04 | P.DS ---
Providers Date of admission: 05/10/16 18:44 Attending physician: Wilner Corona Primary care physician: Jonathan Angelica [facility] Hospital Course: Diagnosis on discharge: #1 See's palsy #2 meningioma of the left sphenoid wing involving cavernous sinus Hospital course Patient is a 70-year-old female well known to my practice was admitted to [facility] with right sided facial weakness, patient was diagnosed with idiopathic See's palsy she was started on steroids, she had an MRI of the brain that revealed evidence of left sphenoid wing meningioma she was seen by neurology Dr. Mercer, patient was cleared for discharge recommendation for appointment with neurosurgeon soon. Patient was stable she was discharged home on 05/13/2016 she was given a prescription for Medrol Dosepak and a prescription for artificial tears she was also given a prescription for Valtrex 500 mg twice daily for 10 days. She will follow-up with Dr. Mercer in 2-3 weeks. Our office will make arrangement for her to follow with neurosurgeon as soon as possible She will be followed in our office in 2-3 days Plan - Discharge Summary Discharge Medication List Atenolol [Tenormin] 25 mg PO DAILY 12/23/13 [History] Folic Acid 1 mg PO DAILY 12/23/13 [History] Methotrexate Sodium [Methotrexate] 15 mg PO TH 12/23/13 [History] Omeprazole [PriLOSEC] 20 mg PO AC-BID 12/23/13 [History] Simvastatin [Zocor] 20 mg PO HS 12/23/13 [History] Zolpidem [Ambien] 5 mg PO HS PRN 12/23/13 [History] amLODIPine BESYLATE [Norvasc] 5 mg PO BID 12/23/13 [History] traMADol-ACETAMINOP 37.5-325MG [Ultracet] 1 tab PO Q4HR PRN 12/23/13 [History] Aspirin EC [Ecotrin] 325 mg PO DAILY 05/10/16 [History] Calcium Carbonate [Calcium] 600 mg PO BID 05/10/16 [History] Celecoxib [CeleBREX] 200 mg PO DAILY 05/10/16 [History] Artificial Tears-Hypromellose [Artificial Tear Drops] 1 drops BOTH EYES QID PRN #0 bottle 05/13/16 [Rx] methylPREDNISolone Dose Pack [Medrol Dose Pack] 24 mg PO DAILY tab 05/13/16 [Rx ] valACYclovir [Valtrex] 500 mg PO BID tab 05/13/16 [Rx] Follow up Appointment(s)/Referral(s): Jonathan Dominguez MD [Primary Care Provider] - 1-2 days
--- NOTE | 2016-05-13 20:05 | P.PN ---
Subjective This patient is a 70-year-old right-handed white female who was initially admitted to hospital yesterday with sudden onset of facial weakness. 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 She was started on a Medrol Dosepak yesterday for further treatment. Patient underwent MRI of the brain today which confirms evidence of a left sphenoid wing meningioma. We have recommended that this be further evaluated with neurosurgery in the outpatient clinic. At this time there is no connection between the finding of the meningioma and her Merritt's palsy. There was some vascular changes noted in the vertebrobasilar system which is nonspecific. We have mentioned to the patient that she should be seen in the neurosurgery clinic for further evaluation of the sphenoid wing meningioma. At this time it is not felt to be a cause for alarm. She may schedule for a neurosurgery consultation is in his discharge from the hospital. There was no evidence of any brainstem ischemia based on the MRI report. Patient continues to do fairly well since her admission. She is encouraged to perform exercises for treatment of the acute Merritt's palsy. We've advised the patient to continue with exercises to the right side of the face for the Merritt's palsy. She is also the patch GI at night when sleeping. She may complete her course of the Medrol Dosepak upon discharge. She will also be started on Valtrex 500 mg twice a day for 10 days. She most likely will be discharged home today. Her recovery remains stable and we will continue close neurological follow-up for the patient. Patient can schedule for a follow-up in the outpatient neurology clinic in 2-3 weeks. Patient continues to do well. We have encouraged her to follow-up with neurosurgery as outpatient. She is being considered for discharge home today. Objective - Vital Signs Vital signs: Vital Signs Temp 97.2 F L 05/13/16 08:13 Pulse 69 05/13/16 08:31 Resp 18 05/13/16 08:31 BP 117/65 05/13/16 08:13 Pulse Ox 96 05/13/16 08:13 Intake & Output 05/13/16 05/13/16 05/14/16 06:59 18:59 06:59 Intake Total 860 240 Output Total 1950 Balance -1090 240 Weight 78.3 kg Intake: IV 20 0.9% NS flush 10 mL 20 Oral 840 240 Output: Urine 1950 Other: Voiding Method Toilet Toilet # Voids 1 - Exam Physical examination: PHYSICAL EXAMINATION: Patient is resting comfortably in bed. VITAL SIGNS: Blood pressure is [112/65]. Heart rate is [63]. Respiration is [18] . Temperature is [97.7]. HEENT: Head is atraumatic, neck is supple, there were no carotid bruits. CHEST: Lungs are clear to auscultation and percussion. CARDIAC: S1, S2 normal rate and rhythm. There is no murmur. ABDOMEN: Soft and nontender. Bowel sounds are present. EXTREMITIES: There is no pedal edema. Peripheral pulses are present. Neurological examination: Patient continues to show evidence of a mild right-sided idiopathic Merritt's palsy. No other findings on neurological examination at this time. 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 She is recovering from any acute right- sided Merritt's palsy. She underwent MRI of the brain which reveals evidence of a left sphenoid wing meningioma. She is to follow-up with neurosurgery in the outpatient clinic. This is being arranged by Dr. Dominguez's office. Patient is clear for discharge home today. She should continue on Medrol Dosepak as well as Valtrex 500 mg twice a day for 10 days. Patient may schedule follow-up in the outpatient neurology clinic in 2-3 weeks. We will reassess her Merritt's palsy at that time. Her overall prognosis at this time remains guarded. Patient is being discharged to home later today.
[2016-05-15] MEDS ORDERED: METHOTREXATE SODIUM 2.5 MG TAB PO SCH (20:57)
== END 2016-05-13 10:00 | disposition home or self-care (01) | DRG 74 ==
LOC: EC 16:44 → 6SEL 18:44
PROVIDERS: ADMIT Internal Medicine; ATTEND Internal Medicine
DX: G51.0 Bell's palsy (principal); I10 Essential (primary) hypertension; D32.0 Benign neoplasm of cerebral meninges; E78.2 Mixed hyperlipidemia; I25.10 Atherosclerotic heart disease of native coronary artery without angina pectoris; K21.9 Gastro-esophageal reflux disease without esophagitis; M06.9 Rheumatoid arthritis, unspecified; Z79.899 Other long term (current) drug therapy; Z87.891 Personal history of nicotine dependence
CPT/HCPCS: 36415; 70450; 70460; 70553; 71020; 80048; 80053; 82550; 82553; 83735; 84484; 85025; 85610; 85730; 93005; 93880; 96374; 96375; 99285

== ENCOUNTER 2016-09-10 07:43 | Day surgery (SDC) | payer MEDICARE ==
[2016-09-08 14:43] VITALS: BMI 28.3
[~2016-09-10 07:43] MED LIST: LACTATED RINGERS 1,000 ML IV SCH; LIDOCAINE 1% 20 ML VIAL (10MG/ML) FOR IV START INTRADERMA PRN
[2016-09-10] MEDS ORDERED: LIDOCAINE 1% 20 ML VIAL (10MG/ML) FOR IV START INTRADERMA ONE (08:02)
[2016-09-10 08:10] VITALS: TEMP 97.4
--- NOTE | 2016-09-10 08:10 | P.GSHP ---
History of Present Illness H&P Date: 09/10/16 CHIEF COMPLAINT: Colon screen HISTORY OF PRESENT ILLNESS: The patient is a 70-year-old female who presents for colon screen. Lower endoscopy was offered for further evaluation and management. PAST MEDICAL HISTORY: Please see list. PAST SURGICAL HISTORY: Please see list. MEDICATIONS: Please see list. ALLERGIES: Please see list. SOCIAL HISTORY: No illicit drug use FAMILY HISTORY: No reports of Crohn disease or ulcerative colitis. REVIEW OF ORGAN SYSTEMS: CONSTITUTIONAL: No reports of fevers or chills. PHYSICAL EXAM: VITAL SIGNS: Stable GENERAL: Well-developed pleasant in no acute distress. HEENT: No scleral icterus. Extraocular movements grossly intact. Moist buccal mucosa. NECK: Supple without lymphadenopathy. CHEST: Unlabored respirations. Equal bilateral excursions. CARDIOVASCULAR: Regular rate and rhythm. Distal 2+ pulses. ABDOMEN: Soft, nontender, nondistended. MUSCULOSKELETAL: No clubbing, cyanosis, or edema. ASSESSMENT: 1. Colon screen. PLAN: 1. Recommend proceeding with a lower endoscopy Past Medical History Past Medical History: GERD/Reflux, Hyperlipidemia, Hypertension, Rheumatoid Arthritis (RA) Additional Past Medical History / Comment(s): Pt states she has something wrong with her aorta but isn't sure what, anemia, History of Any Multi-Drug Resistant Organisms: None Reported Past Surgical History: Appendectomy, Breast Surgery, Cardiac Ablation, Cholecystectomy, Heart Catheterization, Hysterectomy Additional Past Surgical History / Comment(s): abliation, breast reducion, heart cath Past Anesthesia/Blood Transfusion Reactions: Postoperative Nausea & Vomiting ( PONV) Past Psychological History: No Psychological Hx Reported Smoking Status: Former smoker Past Alcohol Use History: Occasional Additional Past Alcohol Use History / Comment(s): quit smoking 30 yrs ago, smoked for 20 yrs, 1/2 PPD Past Drug Use History: None Reported - Past Family History Mother Family Medical History: No Reported History Brother(s) Family Medical History: Diabetes Mellitus, Rheumatoid Arthritis (RA) Sister(s) Family Medical History: Rheumatoid Arthritis (RA) Medications and Allergies Home Medications Medication Instructions Recorded Confirmed Type Atenolol [Tenormin] 25 mg PO HS 12/23/13 09/10/16 History Folic Acid 1 mg PO DAILY 12/23/13 09/08/16 History Methotrexate Sodium [Methotrexate] 15 mg PO TH 12/23/13 09/08/16 History Omeprazole [PriLOSEC] 20 mg PO QAM 12/23/13 09/08/16 History Simvastatin [Zocor] 40 mg PO HS 12/23/13 09/08/16 History Zolpidem [Ambien] 5 mg PO HS 12/23/13 09/08/16 History amLODIPine BESYLATE [Norvasc] 5 mg PO BID 12/23/13 09/08/16 History traMADol-ACETAMINOP 37.5-325MG 1 tab PO Q4HR PRN 12/23/13 09/08/16 History [Ultracet] Aspirin EC [Ecotrin] 325 mg PO DAILY 05/10/16 09/08/16 History Calcium Carbonate [Calcium] 600 mg PO DAILY 05/10/16 09/08/16 History Celecoxib [CeleBREX] 200 mg PO DAILY 05/10/16 09/08/16 History Cholecalciferol (Vitamin D3) 2,000 unit PO DAILY 09/08/16 09/08/16 History [Vitamin D3] Allergies Allergy/AdvReac Type Severity Reaction Status Date / Time Iodine and Iodide Containing Allergy Unknown Verified 09/08/16 14:30 Produc shellfish derived Allergy Rash/Hives Verified 09/08/16 14:29 Surgical - Exam Vital Signs Temp Pulse Resp BP Pulse Ox 97.4 F L 80 16 156/72 95 09/10/16 08:08 09/10/16 08:08 09/10/16 08:08 09/10/16 08:08 09/10/16 08:08
[2016-09-10] MEDS ORDERED: PROPOFOL 10 MG/ML 20 ML VIAL IV ONE (08:36)
--- NOTE | 2016-09-10 08:59 | P.PCN ---
Date of Procedure: 09/10/16 Preoperative Diagnosis: Postoperative Diagnosis: Procedure(s) Performed: Implants: Indications for Procedure: Operative Findings: Description of Procedure: PREOPERATIVE DIAGNOSIS: Colonoscopy screening. POSTOPERATIVE DIAGNOSIS: Colonoscopy screening. OPERATION: Colonoscopy to the ileocecal valve and appendiceal orifice. SURGEON: Beverly Forman MD. ANESTHESIA: MAC. INDICATIONS: The patient is a 70-year-old female who presents for colonoscopy screening. Benefits and risks were described and informed consent was obtained. DESCRIPTION OF PROCEDURE: The patient had undergone Gatorade, MiraLAX and Dulcolax prep. She had been brought into the operating room and laid in the left lateral decubitus position. After adequate intravenous sedation, the rectum was examined with 2% lidocaine jelly. No external hemorrhoids were encountered. The rectal tone was within normal limits. No lesions were palpated in the rectal vault. An Olympus colonoscope was advanced until the ileocecal valve and appendiceal orifice were clearly viewed. The prep was excellent with clear visualization of the mucosal folds. The scope was removed with visualization of each mucosal fold. No colonic polyps were found. No evidence of focal colitis was found. Retroflexion of the scope demonstrated grade 1 internal hemorrhoids without active bleeding or inflammation. The colon was desufflated. The patient had tolerated the procedure well. Withdrawal time was over 6 minutes. FINDINGS: Internal hemorrhoids, grade 1 No external prolapsed hemorrhoids. No arteriovenous malformations. No adenomatous polyps. No focal colitis. RECOMMENDATIONS: Lower endoscopy every 10 years per screening guidelines; however, as she will be 80 years old then colonoscopy as needed. Plan - Discharge Summary New Discharge Prescriptions: No Action traMADol-ACETAMINOP 37.5-325MG [Ultracet] 1 tab PO Q4HR PRN PRN Reason: Pain Zolpidem [Ambien] 5 mg PO HS amLODIPine BESYLATE [Norvasc] 5 mg PO BID Simvastatin [Zocor] 40 mg PO HS Omeprazole [PriLOSEC] 20 mg PO QAM Folic Acid 1 mg PO DAILY Atenolol [Tenormin] 25 mg PO HS Methotrexate Sodium [Methotrexate] 15 mg PO TH Calcium Carbonate [Calcium] 600 mg PO DAILY Celecoxib [CeleBREX] 200 mg PO DAILY Aspirin EC [Ecotrin] 325 mg PO DAILY Cholecalciferol (Vitamin D3) [Vitamin D3] 2,000 unit PO DAILY Discharge Medication List Atenolol [Tenormin] 25 mg PO HS 12/23/13 [History] Folic Acid 1 mg PO DAILY 12/23/13 [History] Methotrexate Sodium [Methotrexate] 15 mg PO TH 12/23/13 [History] Omeprazole [PriLOSEC] 20 mg PO QAM 12/23/13 [History] Simvastatin [Zocor] 40 mg PO HS 12/23/13 [History] Zolpidem [Ambien] 5 mg PO HS 12/23/13 [History] amLODIPine BESYLATE [Norvasc] 5 mg PO BID 12/23/13 [History] traMADol-ACETAMINOP 37.5-325MG [Ultracet] 1 tab PO Q4HR PRN 12/23/13 [History] Aspirin EC [Ecotrin] 325 mg PO DAILY 05/10/16 [History] Calcium Carbonate [Calcium] 600 mg PO DAILY 05/10/16 [History] Celecoxib [CeleBREX] 200 mg PO DAILY 05/10/16 [History] Cholecalciferol (Vitamin D3) [Vitamin D3] 2,000 unit PO DAILY 09/08/16 [History] Follow up Appointment(s)/Referral(s): Beverly Forman MD [STAFF PHYSICIAN] - As Needed Patient Instructions/Handouts: *Surgery [facility] - (Anesthesia) Endoscopy Discharge Instructions, Colonoscopy (DC) Activity/Diet/Wound Care/Special Instructions: Colonoscopy as needed. Discharge Disposition: HOME SELF-CARE
[2016-09-10 09:21] VITALS: BP 130/67; PULSE 71; RESP 18
== END 2016-09-10 09:34 | disposition home or self-care (01) ==
LOC: ORWHC2ENDO 07:43
PROVIDERS: ATTEND Surgery Plastic and Reconstructive Surgery
DX: Z12.11 Encounter for screening for malignant neoplasm of colon (principal); K64.0 First degree hemorrhoids; I10 Essential (primary) hypertension; E78.5 Hyperlipidemia, unspecified; M06.9 Rheumatoid arthritis, unspecified; K21.9 Gastro-esophageal reflux disease without esophagitis; D64.9 Anemia, unspecified; Z88.3 Allergy status to other anti-infective agents; Z91.013 Allergy to seafood; Z79.82 Long term (current) use of aspirin; Z79.1 Long term (current) use of non-steroidal anti-inflammatories (NSAID); Z79.899 Other long term (current) drug therapy; Z87.891 Personal history of nicotine dependence; Z90.49 Acquired absence of other specified parts of digestive tract; Z90.710 Acquired absence of both cervix and uterus; Z82.61 Family history of arthritis
CPT/HCPCS: G0121; J2704

== ENCOUNTER → 2016-10-09 | Outpatient (CLI) | payer MEDICARE ==
--- NOTE | 2016-10-09 10:49 | XR ---
EXAMINATION TYPE: XR shoulder complete RT , 3 VIEWS DATE OF EXAM ORDERED: 10/09/2016 HISTORY: M25.511 pain in right shoulder. COMPARISON: None. FINDINGS: There are mild hypertrophic changes in the right AC joint. No fracture, dislocation or oth er acute osseous lesion is seen. IMPRESSION: 1. NO ACUTE OSSEOUS LESION. 2. HYPERTROPHIC CHANGE, RIGHT AC JOINT.
== END | disposition home or self-care (01) ==
LOC: RADXRMAIN 10:28
PROVIDERS: ATTEND Internal Medicine Rheumatology
DX: M89.311 Hypertrophy of bone, right shoulder (principal)

== ENCOUNTER → 2017-01-06 | Outpatient (CLI) | payer MEDICARE ==
[2017-01-06 17:04] LABS: Blood Urea Nitrogen 22 mg/dL (7-17); Non-African American GFR(MDRD) >60 (>60 ml/min/1.73 sqM)
== END | disposition home or self-care (01) ==
LOC: LABWHC1 16:27
DX: D32.0 Benign neoplasm of cerebral meninges (principal)
CPT/HCPCS: 36415; 82565; 84520

== ENCOUNTER → 2017-03-03 | Outpatient (CLI) | payer MEDICARE ==
--- NOTE | 2017-03-03 12:34 | MR ---
EXAMINATION TYPE: MR brain wo/w con DATE OF EXAM: 03/03/2017 COMPARISON: NONE HISTORY: MENINGIOMA TECHNIQUE: Multiplanar, multisequence images of the brain and brainstem is performed without and with IV contras t, utilizing 7 mL intravenous Gadavist . FINDINGS:There is a 3.1 x 3.4 x 3.3 cm enhancing mass arising along the left sphenoid wing. This joaquin ears extra-axial and displacing adjacent brain tissue. No other enhancing lesions are seen. Finding a ppears similar in size of the prior exam. It does appear to extend and displaced the cavernous segmen t of the left ICA. Changes of chronic sinusitis noted. Numerous areas of abnormal signal the white matter are nonspecifi c. There is mild generalized degenerative change. Craniocervical junction maintained. No cerebellopontine angle pontine mass. Bone IMPRESSION: 1. Stable left sphenoid wing mass measuring 3.1 x 3.4 x 3.3 cm most typical of meningioma. 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
== END | disposition home or self-care (01) ==
LOC: RADMRIMAIN 10:10
DX: D32.0 Benign neoplasm of cerebral meninges (principal); I77.89 Other specified disorders of arteries and arterioles; H47.49 Disorders of optic chiasm in (due to) other disorders
CPT/HCPCS: 70553; A9581

== ENCOUNTER → 2017-06-08 | Outpatient (CLI) | payer MEDICARE ==
[2017-06-08 09:22] LABS: Basophils # (A) 0.1 k/uL (0-0.2); Basophils % (A) 1 %; Eosinophils # (A) 0.4 k/uL (0-0.7); Eosinophils % (A) 4 %; HCT 38.5 % (34.0-46.0); HGB 11.7 gm/dL (11.4-16.0); Hypochromasia Slight; Lymphocytes # (A) 1.6 k/uL (1.0-4.8); Lymphocytes % (A) 16 %; MCH 29.9 pg (25.0-35.0); MCHC 30.5 g/dL (31.0-37.0); MCV 98.1 fL (80.0-100.0); Monocytes # (A) 0.8 k/uL (0-1.0); Monocytes % (A) 8 %; Neutrophils # (A) 6.8 k/uL (1.3-7.7); Neutrophils % (A) 68 %; Platelet Count 308 k/uL (150-450); RBC 3.92 m/uL (3.80-5.40); RDW 14.8 % (11.5-15.5); WBC 9.9 k/uL (3.8-10.6)
[2017-06-08 11:29] LABS: Erythrocyte Sedimentation Rate 26 mm/hr (0-20)
[2017-06-08 11:31] LABS: ALT 30 U/L (9-52); AST 26 U/L (14-36); C Reactive Protein 6.3 mg/L (<10.0)
== END | disposition home or self-care (01) ==
LOC: LABWHC1 08:20
PROVIDERS: ATTEND Internal Medicine Rheumatology
DX: M06.9 Rheumatoid arthritis, unspecified (principal)
CPT/HCPCS: 36415; 82565; 84450; 84460; 85025; 85652; 86140

== ENCOUNTER → 2017-08-08 | Outpatient (CLI) | payer MEDICARE ==
[2017-08-08 09:25] LABS: Basophils % (A) 1 %; Eosinophils # (A) 0.2 k/uL (0-0.7); Eosinophils % (A) 3 %; HCT 36.1 % (34.0-46.0); HGB 11.5 gm/dL (11.4-16.0); Lymphocytes # (A) 1.5 k/uL (1.0-4.8); Lymphocytes % (A) 24 %; MCH 29.4 pg (25.0-35.0); Mean Platelet Volume 7.3; Monocytes # (A) 0.4 k/uL (0-1.0); Monocytes % (A) 6 %; Neutrophils # (A) 4.1 k/uL (1.3-7.7); Neutrophils % (A) 65 %; Platelet Count 222 k/uL (150-450); RBC 3.92 m/uL (3.80-5.40); WBC 6.4 k/uL (3.8-10.6)
[2017-08-08 10:39] LABS: ALT 16 U/L (9-52); AST 24 U/L (14-36); C Reactive Protein <5.0 mg/L (<10.0)
[2017-08-08 11:53] LABS: Erythrocyte Sedimentation Rate 8 mm/hr (0-20)
== END | disposition home or self-care (01) ==
LOC: LABWHC1 08:48
PROVIDERS: ATTEND Internal Medicine Rheumatology
DX: M06.9 Rheumatoid arthritis, unspecified (principal)
CPT/HCPCS: 36415; 82565; 84450; 84460; 85025; 85652; 86140

== ENCOUNTER → 2017-08-13 | Outpatient (CLI) | payer MEDICARE ==
--- NOTE | 2017-08-14 13:22 | MM ---
Reason for exam: screening (asymptomatic). Last mammogram was performed 1 year and 11 months ago. History: Patient is postmenopausal. Reductions of both breasts, 1994. Physical Findings: A clinical breast exam by your physician is recommended on an annual basis and results should be correlated with mammographic findings. MG Screening Mammo w CAD Bilateral CC and MLO view(s) were taken. Prior study comparison: September 11, 2015, bilateral MG screening mammo w CAD. October 24, 2013, bilateral MG screening mammo w CAD. The breast tissue is heterogeneously dense. This may lower the sensitivity of mammography. Finding: There are typically benign calcifications in both breasts. No suspicious abnormality. ASSESSMENT: Benign, BI-RAD 2 RECOMMENDATION: Routine screening mammogram of both breasts in 1 year.
== END | disposition home or self-care (01) ==
LOC: RADMAMWWP 08:17
PROVIDERS: ATTEND Internal Medicine
DX: Z12.31 Encounter for screening mammogram for malignant neoplasm of breast (principal)
CPT/HCPCS: 77067

== ENCOUNTER → 2017-11-09 | Outpatient (CLI) | payer MEDICARE ==
[2017-11-09 11:37] LABS: Basophils % (A) 1 %; Eosinophils # (A) 0.2 k/uL (0-0.7); Eosinophils % (A) 2 %; HCT 36.8 % (34.0-46.0); HGB 11.8 gm/dL (11.4-16.0); Lymphocytes # (A) 1.8 k/uL (1.0-4.8); Lymphocytes % (A) 23 %; MCH 30.3 pg (25.0-35.0); MCHC 32.1 g/dL (31.0-37.0); MCV 94.4 fL (80.0-100.0); Mean Platelet Volume 7.3; Monocytes # (A) 0.5 k/uL (0-1.0); Monocytes % (A) 6 %; Neutrophils # (A) 5.2 k/uL (1.3-7.7); Neutrophils % (A) 66 %; Platelet Count 221 k/uL (150-450); RBC 3.89 m/uL (3.80-5.40); RDW 15.8 % (11.5-15.5); WBC 7.9 k/uL (3.8-10.6)
[2017-11-09 11:46] LABS: ALT 29 U/L (9-52); AST 22 U/L (14-36); C Reactive Protein <5.0 mg/L (<10.0)
[2017-11-09 14:34] LABS: Erythrocyte Sedimentation Rate 13 mm/hr (0-20)
== END | disposition home or self-care (01) ==
LOC: LABWHC1 10:59
PROVIDERS: ATTEND Internal Medicine Rheumatology
DX: M06.9 Rheumatoid arthritis, unspecified (principal)
CPT/HCPCS: 36415; 82565; 84450; 84460; 85025; 85652; 86140

== ENCOUNTER → 2018-02-16 | Outpatient (CLI) | payer MEDICARE ==
[2018-02-16 11:13] LABS: Basophils # (A) 0.1 k/uL (0-0.2); Basophils % (A) 1 %; Eosinophils # (A) 0.2 k/uL (0-0.7); Eosinophils % (A) 3 %; HCT 38.5 % (34.0-46.0); HGB 12.2 gm/dL (11.4-16.0); Hypochromasia Slight; Lymphocytes # (A) 1.6 k/uL (1.0-4.8); Lymphocytes % (A) 20 %; MCH 30.3 pg (25.0-35.0); MCHC 31.6 g/dL (31.0-37.0); MCV 96.1 fL (80.0-100.0); Mean Platelet Volume 6.9; Monocytes # (A) 0.7 k/uL (0-1.0); Monocytes % (A) 8 %; Neutrophils # (A) 5.2 k/uL (1.3-7.7); Neutrophils % (A) 66 %; Platelet Count 281 k/uL (150-450); RBC 4.01 m/uL (3.80-5.40); RDW 15.2 % (11.5-15.5)
[2018-02-16 12:43] LABS: Erythrocyte Sedimentation Rate 14 mm/hr (0-20)
[2018-02-16 17:47] LABS: ALT 13 U/L (8-44); AST 19 U/L (13-35); C Reactive Protein <0.4 mg/dL (0.0-0.8)
== END | disposition home or self-care (01) ==
LOC: LABWHC1 10:38
PROVIDERS: ATTEND Internal Medicine Rheumatology
DX: M06.9 Rheumatoid arthritis, unspecified (principal)
CPT/HCPCS: 36415; 82565; 84450; 84460; 85025; 85652; 86140

== ENCOUNTER → 2018-05-14 | Outpatient (CLI) | payer MEDICARE ==
[2018-05-14 09:59] LABS: Basophils % (A) 1 %; Eosinophils # (A) 0.2 k/uL (0-0.7); Eosinophils % (A) 3 %; HCT 36.2 % (34.0-46.0); HGB 11.3 gm/dL (11.4-16.0); Hypochromasia Slight; Lymphocytes # (A) 1.5 k/uL (1.0-4.8); Lymphocytes % (A) 19 %; MCH 29.5 pg (25.0-35.0); MCHC 31.2 g/dL (31.0-37.0); MCV 94.4 fL (80.0-100.0); Mean Platelet Volume 6.8; Monocytes # (A) 0.6 k/uL (0-1.0); Monocytes % (A) 8 %; Neutrophils % (A) 67 %; Platelet Count 211 k/uL (150-450); RBC 3.84 m/uL (3.80-5.40); RDW 15.7 % (11.5-15.5); WBC 7.5 k/uL (3.8-10.6)
[2018-05-14 11:14] LABS: Erythrocyte Sedimentation Rate 11 mm/hr (0-20)
[2018-05-14 16:42] LABS: ALT 16 U/L (8-44); AST 23 U/L (13-35); C Reactive Protein <0.4 mg/dL (0.0-0.8)
== END | disposition home or self-care (01) ==
LOC: LABWHC1 08:59 → EEVIPCON 08:59
PROVIDERS: ATTEND Internal Medicine Rheumatology
DX: M06.9 Rheumatoid arthritis, unspecified (principal)
CPT/HCPCS: 36415; 82565; 84450; 84460; 85025; 85652; 86140

== ENCOUNTER → 2018-06-21 | Outpatient (CLI) | payer MEDICARE ==
--- NOTE | 2018-06-21 14:41 | MR ---
EXAMINATION TYPE: MR brain wo/w con DATE OF EXAM: 06/21/2018 COMPARISON: 03/03/2017 HISTORY: Follow up to meningioma resection Apr 2017 TECHNIQUE: Multiplanar, multisequence images of the brain and brainstem is performed without and with IV contras t, utilizing 7 mL intravenous Gadavist . FINDINGS: There is a left middle cranial fossa and temporal lobe resection cavity with extensive postoperative change into the left frontal lobe. T2/FLAIR hyperintensity within the white matter surrounding the po stsurgical site relates to postoperative gliosis and encephalomalacia. Minimal T2/flair hypointensity at the surgical site that is linear and nonenhancing relates to hemosiderin deposition such as on T2 axial fat sat image 10. The previously seen meningioma surrounding the left middle cerebral artery a ppears surgically absent with no residual abnormal enhancement surrounding the left middle cerebral a rtery at the resection site. There is abnormal enhancement along the anterior left hemispheric dura w ith dural thickening. Left frontal craniotomy change is seen. Major intracranial flow voids are maint ained. Numerous foci of T2/FLAIR hyperintensity are scattered throughout the periventricular and subcortical white matter, overall moderate burden. These do not appear to demonstrate abnormal enhancement and a re similar in degree to the prior of 2016. Diffusion weighted images demonstrate no evidence of a recent infarct or other diffusion abnormality. The ventricular system and cisternal spaces are normal in size and appearance. The brain volume is age appropriate. Midline structures demonstrate normal morphology. The craniocervical junction appears within normal limits. Mild mucosal thickening is seen within the ethmoid sinuses. The remaining visualized sinuses are clear and the globes are intact. IMPRESSION: 1. Craniectomy and postsurgical changes after resection of a left middle cranial fossa meningioma nacho rounding the middle cerebral artery. No residual enhancement within the surgical bed seen to indicate residual tumor. Left temporal and frontal encephalomalacia along the postsurgical tract is seen with dural enhancement, typical for postsurgical change and dural flap. 2. Moderate burden nonspecific white matter change (nonenhancing), most commonly on the basis of supervisor offset plate preparation bety microangiopathy.
== END | disposition home or self-care (01) ==
LOC: RADMRIMAIN 12:13
DX: I73.9 Peripheral vascular disease, unspecified (principal); G93.89 Other specified disorders of brain; R90.89 Other abnormal findings on diagnostic imaging of central nervous system; Z98.890 Other specified postprocedural states
CPT/HCPCS: 70553; A9585

== ENCOUNTER → 2018-07-28 | Outpatient (CLI) | payer MEDICARE ==
[2018-07-28 13:21] LABS: Basophils % (A) 0 %; Eosinophils # (A) 0.3 k/uL (0-0.7); Eosinophils % (A) 3 %; HCT 36.6 % (34.0-46.0); HGB 11.7 gm/dL (11.4-16.0); Lymphocytes # (A) 1.9 k/uL (1.0-4.8); Lymphocytes % (A) 19 %; MCH 30.3 pg (25.0-35.0); MCHC 31.9 g/dL (31.0-37.0); MCV 94.9 fL (80.0-100.0); Monocytes # (A) 0.8 k/uL (0-1.0); Monocytes % (A) 8 %; Neutrophils # (A) 6.5 k/uL (1.3-7.7); Neutrophils % (A) 67 %; Platelet Count 217 k/uL (150-450); RBC 3.86 m/uL (3.80-5.40); RDW 15.6 % (11.5-15.5); WBC 9.7 k/uL (3.8-10.6)
[2018-07-28 14:28] LABS: Erythrocyte Sedimentation Rate 9 mm/hr (0-20)
[2018-07-28 19:51] LABS: ALT 15 U/L (8-44); AST 21 U/L (13-35); C Reactive Protein <0.4 mg/dL (0.0-0.8)
== END | disposition home or self-care (01) ==
LOC: EEVIPCON 12:11 → LABWHC1 12:11
PROVIDERS: ATTEND Internal Medicine Rheumatology
DX: M06.9 Rheumatoid arthritis, unspecified (principal)
CPT/HCPCS: 36415; 82565; 84450; 84460; 85025; 85652; 86140

== ENCOUNTER → 2018-10-19 | Outpatient (CLI) | payer MEDICARE ==
--- NOTE | 2018-10-19 11:46 | XR ---
EXAMINATION TYPE: XR chest 2V DATE OF EXAM: 10/19/2018 COMPARISON: 05/10/2016 TECHNIQUE: PA and lateral views submitted. HISTORY: cough FINDINGS: The lungs are clear and there is no pneumothorax, pleural effusion, or focal pneumonia. Atheroscler otic change aorta. Arthropathy of the shoulders. Hyperinflation suggests COPD. Diffuse osteopenia. Hy pertrophic and degenerative changes spine. Surgical clips in the abdomen. IMPRESSION: 1. No acute process. Correlate for COPD.
== END | disposition home or self-care (01) ==
LOC: LABWHC1 10:19
PROVIDERS: ATTEND Internal Medicine
DX: R05 Cough (principal)
CPT/HCPCS: 71046

== ENCOUNTER → 2018-10-22 | Outpatient (CLI) | payer MEDICARE ==
[2018-10-22 07:57] LABS: Basophils % (A) 1 %; Eosinophils # (A) 0.3 k/uL (0-0.7); Eosinophils % (A) 3 %; HCT 37.1 % (34.0-46.0); HGB 11.7 gm/dL (11.4-16.0); Lymphocytes # (A) 1.8 k/uL (1.0-4.8); Lymphocytes % (A) 24 %; MCH 29.8 pg (25.0-35.0); MCHC 31.4 g/dL (31.0-37.0); MCV 94.7 fL (80.0-100.0); Mean Platelet Volume 7.4; Monocytes # (A) 0.7 k/uL (0-1.0); Monocytes % (A) 9 %; Neutrophils # (A) 4.6 k/uL (1.3-7.7); Neutrophils % (A) 61 %; Platelet Count 217 k/uL (150-450); RBC 3.92 m/uL (3.80-5.40); RDW 15.8 % (11.5-15.5); WBC 7.6 k/uL (3.8-10.6)
[2018-10-22 11:43] LABS: Erythrocyte Sedimentation Rate 10 mm/hr (0-20)
[2018-10-22 12:19] LABS: ALT 17 U/L (8-44); AST 21 U/L (13-35); C Reactive Protein <0.4 mg/dL (0.0-0.8)
== END | disposition home or self-care (01) ==
LOC: LABWHC1 07:23
PROVIDERS: ATTEND Internal Medicine Rheumatology
DX: M06.9 Rheumatoid arthritis, unspecified (principal)
CPT/HCPCS: 36415; 82565; 84450; 84460; 85025; 85652; 86140

== ENCOUNTER → 2018-10-28 | Outpatient (CLI) | payer MEDICARE ==
--- NOTE | 2018-10-28 10:22 | MM ---
Reason for exam: screening (asymptomatic). Last mammogram was performed 1 year and 2 months ago. History: Patient is postmenopausal. Reductions of both breasts, 1994. Physical Findings: A clinical breast exam by your physician is recommended on an annual basis and results should be correlated with mammographic findings. MG Screening Mammo w CAD Bilateral CC and MLO view(s) were taken. Prior study comparison: August 13, 2017, bilateral MG screening mammo w CAD. September 11, 2015, bilateral MG screening mammo w CAD. The breast tissue is heterogeneously dense. This may lower the sensitivity of mammography. Benign appearing bilateral calcifications. No suspicious abnormality. No significant changes when compared with prior studies. ASSESSMENT: Benign, BI-RAD 2 RECOMMENDATION: Routine screening mammogram of both breasts in 1 year.
== END | disposition home or self-care (01) ==
LOC: RADMAMWWP 07:15
PROVIDERS: ATTEND Internal Medicine
DX: Z12.31 Encounter for screening mammogram for malignant neoplasm of breast (principal)
CPT/HCPCS: 77067

== ENCOUNTER → 2018-11-22 | Outpatient (CLI) | payer MEDICARE ==
--- NOTE | 2018-11-22 10:38 | US ---
EXAMINATION TYPE: US abdomen complete DATE OF EXAM: 11/22/2018 COMPARISON: NONE CLINICAL HISTORY: 72-year-old female R10.84 Generalized Abdominal Pain. Intermittent bloating x 6 mon ths, occasional abdomen pain, history of cholecystectomy TECHNIQUE: Multiple sonographic images of the abdomen are obtained. FINDINGS: EXAM MEASUREMENTS: Liver Length: 12.1 cm Gallbladder: surgically absent CBD: 0.6 cm Spleen: 8.7 cm Right Kidney: 9.1 x 5.3 x 4.2 cm Left Kidney: 9.7 x 4.5 x 4.4 cm Pancreas: The visualized body appears within normal limits. Limited visualization the pancreatic hea d and tail due to shadowing from bowel gas. Liver: mildly heterogeneous appearance may be on a technical basis. No focal lesion. Gallbladder: surgically absent Evidence for sonographic Guajardo's sign: no CBD: Borderline to mildly dilated likely secondary to postcholecystectomy status and patient age. Spleen: visualized portions wnl, limited by overlying bowel gas Right Kidney: no hydronephrosis Left Kidney: no hydronephrosis Upper IVC: wnl Abd Aorta: visualized portions wnl, limited by overlying midline bowel gas IMPRESSION: 1. Borderline to mild biliary ductal dilatation at 6.2 mm likely within normal limits given patient's age and postcholecystectomy status. 2. Slightly heterogeneous appearance of the liver could be on a technical basis or could represent no nspecific hepatocellular disease. Correlate with LFTs and patient risk factors.
== END | disposition home or self-care (01) ==
LOC: RADUSWWP 11-03 08:58
PROVIDERS: ATTEND Internal Medicine
DX: R10.84 Generalized abdominal pain (principal)
CPT/HCPCS: 76700

== ENCOUNTER → 2019-01-07 | Outpatient (CLI) | payer MEDICARE ==
--- NOTE | 2019-01-07 09:10 | BD ---
EXAMINATION TYPE: Axial Bone Density DATE OF EXAM: 01/07/2019 COMPARISON: 09/11/2015 CLINICAL HISTORY: M 86.80 Height: 64 Weight: 146 FRAX RISK QUESTIONS: Alcohol (3 or more units per day): no Family History (Parent hip fracture): no Glucocorticoids (More than 3mos): no (Ex: prednisone, prednisolone, methylprednisolone, dexamethasone, and hydrocortisone). History of Fracture in Adulthood: no Secondary Osteoporosis: 1. Type 1 Diabetes: no 2. Hyperthyroidism: no 3. Menopause before 45: yes 4. Malnutrition: no 5. Chronic liver disease: no Rheumatoid Arthritis: yes Current Tobacco Use: no RISK FACTORS HISTORY OF: Family History of Osteoporosis: yes Active: yes Diet low in dairy products/other sources of calcium: somewhat Postmenopausal woman: yes Take estrogen and/or progesterone medications: no Lost more than 2 inches in height since high school: no Frequent falls: no Poor Health: no Hyperparathyroidism: no Adrenal Insufficiency: no MEDICATIONS: Prednisone or other steroids: no Thyroid Medications:no Osteoporosis Medications: no Additional Medications: Methotrexate Additional History: EXAM MEASUREMENTS: Bone mineral densitometry was performed using the [employer]. Bone mineral density as measured about the Lumbar spine is: ----- L1-L4(G/cm2): 0.962 T Score Values are as follows: ----- L2: -2.5 ----- L3: -1.1 ----- L4: -0.5 ----- L1-L4: -1.8 Bone mineral density has: Decreased -4.9% since study of: 09/11/2015 Bone mineral density about the R hip (g/cm2): 0.709 Bone mineral density about the L hip (g/cm2): 0.711 T Score values are as follows: -----R Neck: -2.4 -----L Neck: -2.3 -----R Total: -1.9 -----L Total: -2.2 Bone mineral density has: Decreased -10.5% since study of: 09/11/2015 IMPRESSION: Osteopenia (T Score between -2.5 and -1). There is slightly increased risk of fracture and the patient may be considered for treatment. Re-Screen 2-5 years. NOTE: T-SCORE=SD OF THE YOUNG ADULT MEAN.
--- NOTE | 2019-01-07 09:14 | XR ---
EXAMINATION TYPE: XR knee complete RT DATE OF EXAM: 01/07/2019 COMPARISON: NONE HISTORY: Pain TECHNIQUE: Four views are submitted. FINDINGS: Diffuse osteopenia with narrowing of the medial compartment of the knee joint and patellofemoral join t. No acute fracture. Osseous structures are intact. No acute fracture seen. IMPRESSION: 1. No acute fracture or dislocation. 2. Diffuse osteopenia and arthropathy. Correlate for osteoarthritis.
== END ==
LOC: RADBDWWP 07:11
PROVIDERS: ATTEND Internal Medicine Rheumatology
DX: M85.80 Other specified disorders of bone density and structure, unspecified site (principal); M85.861 Other specified disorders of bone density and structure, right lower leg; M17.11 Unilateral primary osteoarthritis, right knee
CPT/HCPCS: 77080

== ENCOUNTER → 2019-01-18 | Outpatient (CLI) | payer MEDICARE ==
[2019-01-18 09:26] LABS: Basophils % (A) 0 %; Eosinophils # (A) 0.2 k/uL (0-0.7); Eosinophils % (A) 2 %; HCT 37.2 % (34.0-46.0); HGB 11.9 gm/dL (11.4-16.0); Lymphocytes # (A) 1.8 k/uL (1.0-4.8); Lymphocytes % (A) 20 %; MCH 31.4 pg (25.0-35.0); MCHC 32.1 g/dL (31.0-37.0); MCV 97.8 fL (80.0-100.0); Mean Platelet Volume 6.5; Monocytes # (A) 0.8 k/uL (0-1.0); Monocytes % (A) 9 %; Neutrophils # (A) 5.7 k/uL (1.3-7.7); Neutrophils % (A) 66 %; Platelet Count 228 k/uL (150-450); RBC 3.81 m/uL (3.80-5.40); RDW 14.7 % (11.5-15.5); WBC 8.7 k/uL (3.8-10.6)
[2019-01-18 10:36] LABS: Erythrocyte Sedimentation Rate 14 mm/hr (0-20)
[2019-01-18 15:50] LABS: ALT 13 U/L (8-44); AST 20 U/L (13-35); African American GFR (CKD) 85.4 (60.0-200.0); C Reactive Protein <0.4 mg/dL (0.0-0.8)
== END ==
LOC: LABWHC1 08:29
PROVIDERS: ATTEND Internal Medicine Rheumatology
DX: M06.9 Rheumatoid arthritis, unspecified (principal)
CPT/HCPCS: 36415; 82565; 84450; 84460; 85025; 85652; 86140

== ENCOUNTER → 2019-04-11 | Outpatient (CLI) | payer MEDICARE ==
[2019-04-11 17:11] LABS: Basophils # (A) 0.1 k/uL (0-0.2); Basophils % (A) 1 %; Eosinophils # (A) 0.3 k/uL (0-0.7); Eosinophils % (A) 4 %; HCT 38.1 % (34.0-46.0); HGB 12.3 gm/dL (11.4-16.0); Lymphocytes # (A) 1.6 k/uL (1.0-4.8); Lymphocytes % (A) 20 %; MCH 31.5 pg (25.0-35.0); MCHC 32.3 g/dL (31.0-37.0); MCV 97.6 fL (80.0-100.0); Mean Platelet Volume 7.5; Monocytes # (A) 0.7 k/uL (0-1.0); Monocytes % (A) 9 %; Neutrophils # (A) 5.3 k/uL (1.3-7.7); Neutrophils % (A) 65 %; Platelet Count 252 k/uL (150-450); RBC 3.91 m/uL (3.80-5.40); RDW 14.5 % (11.5-15.5); WBC 8.2 k/uL (3.8-10.6)
[2019-04-11 19:48] LABS: Erythrocyte Sedimentation Rate 15 mm/hr (0-20)
[2019-04-12 02:58] LABS: ALT 17 U/L (8-44); AST 21 U/L (13-35); African American GFR (CKD) 85.4 (60.0-200.0); C Reactive Protein <0.4 mg/dL (0.0-0.8); Non-African American GFR(CKD) 73.7 (60.0-200.0)
== END | disposition home or self-care (01) ==
LOC: LABWHC1 15:17
PROVIDERS: ATTEND Internal Medicine Rheumatology
DX: M06.9 Rheumatoid arthritis, unspecified (principal)
CPT/HCPCS: 36415; 82565; 84450; 84460; 85025; 85652; 86140

== ENCOUNTER → 2019-08-15 | Outpatient (CLI) | payer MEDICARE ==
[2019-08-15 09:06] LABS: Basophils % (A) 1 %; Eosinophils # (A) 0.3 k/uL (0-0.7); Eosinophils % (A) 4 %; HCT 39.5 % (34.0-46.0); HGB 12.2 gm/dL (11.4-16.0); Lymphocytes # (A) 1.7 k/uL (1.0-4.8); Lymphocytes % (A) 23 %; MCH 30.9 pg (25.0-35.0); MCHC 30.8 g/dL (31.0-37.0); MCV 100.5 fL (80.0-100.0); Macrocytosis Slight; Mean Platelet Volume 7.5; Monocytes # (A) 0.8 k/uL (0-1.0); Monocytes % (A) 10 %; Neutrophils # (A) 4.5 k/uL (1.3-7.7); Neutrophils % (A) 59 %; Platelet Count 199 k/uL (150-450); RBC 3.93 m/uL (3.80-5.40); RDW 14.9 % (11.5-15.5); WBC 7.6 k/uL (3.8-10.6)
[2019-08-15 11:21] LABS: Erythrocyte Sedimentation Rate 12 mm/hr (0-20)
[2019-08-15 16:40] LABS: ALT 15 U/L (8-44); AST 24 U/L (13-35); African American GFR (CKD) 100.3 (60.0-200.0); C Reactive Protein <0.4 mg/dL (0.0-0.8); Non-African American GFR(CKD) 86.6 (60.0-200.0)
== END | disposition home or self-care (01) ==
LOC: LABWHC1 08:29
PROVIDERS: ATTEND Internal Medicine Rheumatology
DX: M06.9 Rheumatoid arthritis, unspecified (principal)
CPT/HCPCS: 36415; 82565; 84450; 84460; 85025; 85652; 86140

== ENCOUNTER → 2019-11-01 | Outpatient (CLI) | payer MEDICARE ==
--- NOTE | 2019-11-01 11:10 | MR ---
EXAMINATION TYPE: MR brain wo/w con DATE OF EXAM: 11/01/2019 COMPARISON: MRI brain 06/21/2018, 03/03/2017, 05/12/2016 HISTORY: Benign Neoplasm of Meninges TECHNIQUE: Multiplanar, multisequence images of the brain and brainstem is performed without and with IV contras t, utilizing 7 mL intravenous Gadavist . FINDINGS: Redemonstrated left frontal craniotomy changes and left sphenoid wing meningioma postsurgical resecti on changes, including resection cavity with postoperative gliosis and encephalomalacia, and persisten t dural thickening. No abnormal enhancement along the left middle cerebral artery. There is minimally decreased left anterior hemispheric dural thickening and enhancement, and mildly decreased linear T2 hypointense hemosiderin deposition, versus 06/21/2018 MRI comparison consistent with resolving postsu rgical changes. No evidence of recurrent mass. Diffusion weighted images demonstrate no evidence of a recent infarct or other diffusion abnormality. Similar-appearing nonspecific, nonenhancing, moderate T2 FLAIR hyperintense foci of the periventricu lar and subcortical white matter The ventricular system and cisternal spaces are normal in size and a ppearance. The brain volume is age appropriate. Midline structures demonstrate normal morphology. The craniocervical junction appears within normal limits. The dural venous sinuses appear patent. The visualized sinuses demonstrate mild mucosal thic kening of the ethmoid air cells. Globes are grossly symmetric. IMPRESSION: 1. Status post left middle cranial fossa meningioma resection, with no evidence of recurrent mass. 2. Redemonstrated nonspecific, nonenhancing white matter changes, most likely sequela of chronic micr ovascular ischemia.
== END ==
LOC: RADMRIMAIN 08:22
DX: D32.0 Benign neoplasm of cerebral meninges (principal)
CPT/HCPCS: 70553

== ENCOUNTER → 2019-12-07 | Outpatient (CLI) | payer MEDICARE ==
[2019-12-07 09:03] LABS: Basophils # (A) 0.1 k/uL (0-0.2); Basophils % (A) 1 %; Eosinophils # (A) 0.3 k/uL (0-0.7); Eosinophils % (A) 3 %; HCT 38.1 % (34.0-46.0); Lymphocytes # (A) 1.6 k/uL (1.0-4.8); Lymphocytes % (A) 20 %; MCH 31.6 pg (25.0-35.0); MCHC 31.5 g/dL (31.0-37.0); Macrocytosis Slight; Mean Platelet Volume 7.7; Monocytes # (A) 0.9 k/uL (0-1.0); Monocytes % (A) 11 %; Neutrophils % (A) 62 %; Platelet Count 239 k/uL (150-450); RBC 3.79 m/uL (3.80-5.40); RDW 13.9 % (11.5-15.5)
[2019-12-07 09:14] LABS: MCV 100.5 fL (80.0-100.0)
[2019-12-07 17:31] LABS: ALT 14 U/L (8-44); AST 25 U/L (13-35); African American GFR (CKD) 85.4 (60.0-200.0); C Reactive Protein <0.4 mg/dL (0.0-0.8); Non-African American GFR(CKD) 73.7 (60.0-200.0)
[2019-12-07 18:17] LABS: Erythrocyte Sedimentation Rate 16 mm/Hr (0-30)
== END | disposition home or self-care (01) ==
LOC: LABWHC1 08:16
PROVIDERS: ATTEND Internal Medicine Rheumatology
DX: M06.9 Rheumatoid arthritis, unspecified (principal)
CPT/HCPCS: 36415; 82565; 84450; 84460; 85025; 85652; 86140

== ENCOUNTER 2020-01-21 10:33 | Emergency (ER) | payer MEDICARE ==
[2020-01-21 10:39] VITALS: BP 157/83; PULSE 69; RESP 18; TEMP 98.6
--- NOTE | 2020-01-21 11:02 | ED ---
General Adult HPI - General Chief complaint: Abdominal Pain Stated complaint: sharp pain left side Time Seen by Provider: 01/21/20 10:41 Source: patient Mode of arrival: ambulatory Limitations: no limitations - History of Present Illness Initial comments: Dictation was produced using [employer] dictation software. please excuse any grammatical, word or spelling errors. This patient was cared for during a federal and state declared state of emergenc y secondary to Covid 19 Chief Complaint: 74-year-old female presents with left flank pain History of Present Illness: 74-year-old female she has past medical history of rheumatoid arthritis. She presents today with left-sided flank pain. Patient states her symptoms began today. She woke up with his pain. She denies any urinary symptoms. No nausea vomiting. States that she does have some pain is worse with moving however sometimes she gets this pain even while at rest. She does report that her symptoms are spontaneous not exactly exacerbated mitigated by anything. She's never had pain like this before. She however does recall that she was diagnosed pleurisy with similar symptoms in the past. She denies any changes of symptoms with deep inspiration. She has no abdominal pain. No constitutional symptoms. She has no flank rash The ROS documented in this emergency department record has been reviewed and confirmed by me. Those systems with pertinent positive or negative responses have been documented in the HPI. All other systems are other negative and/or noncontributory. PHYSICAL EXAM: General Impression: Alert and oriented x3, not in acute distress HEENT: Normocephalic atraumatic, extra-ocular movements intact, pupils equal and reactive to light bilaterally, mucous membranes moist. Cardiovascular: Heart regular rate and rhythm Chest: Able to complete full sentences, no retractions, no tachypnea Abdomen: abdomen soft, non-tender, non-distended, no organomegaly Musculoskeletal: Pulses present and equal in all extremities, no peripheral edema, positive CVA thump to the left Motor: no focal deficits noted Neurological: CN II-XII grossly intact, no focal motor or sensory deficits noted Skin: Intact with no visualized rashes Psych: Normal affect and mood ED course: 74-year-old female presents with left sided flank pain vital signs upon arrival are within acceptable limits. Patient is well-appearing in no acute distress. Chest x-ray and abdominal x-rays unremarkable. Laboratory evaluation obtained. CBC, metabolic panel is unremarkable. Ab dominal labs are negative. Urinalysis is negative. Chest x-ray abdominal x-ray negative. CPK patient's symptoms is likely musculoskeletal. She is well- appearing at bedside. She is not exhibiting signs of any high risk features. Patient given lateral patch. She is advised to follow-up with PCP. - Related Data Home Medications Medication Instructions Recorded Confirmed Atenolol [Tenormin] 25 mg PO HS 12/23/13 01/21/20 Folic Acid 1 mg PO DAILY 12/23/13 01/21/20 Omeprazole [PriLOSEC] 20 mg PO QAM 12/23/13 01/21/20 amLODIPine BESYLATE [Norvasc] 5 mg PO BID 12/23/13 01/21/20 metHOTREXate sodium [Methotrexate] 15 mg PO TH 12/23/13 01/21/20 Celecoxib [CeleBREX] 200 mg PO DAILY 05/10/16 01/21/20 Cholecalciferol (Vitamin D3) 2,000 unit PO DAILY 09/08/16 01/21/20 [Vitamin D3] Aspirin EC [Ecotrin Low Dose] 81 mg PO DAILY 01/21/20 01/21/20 Atorvastatin Calcium [Lipitor] 40 mg PO HS 01/21/20 01/21/20 Multivitamins, Thera [Multivitamin 1 tab PO DAILY 01/21/20 01/21/20 (formulary)] Zolpidem [Ambien] 10 mg PO HS PRN 01/21/20 01/21/20 traMADol HCL 50 mg PO TID PRN 01/21/20 01/21/20 Allergies Allergy/AdvReac Type Severity Reaction Status Date / Time Iodine and Iodide Containing Allergy Unknown Verified 01/21/20 11:21 Produc shellfish derived Allergy Rash/Hives Verified 01/21/20 11:21 Review of Systems ROS Statement: Those systems with pertinent positive or pertinent negative responses have been documented in the HPI. ROS Other: All systems not noted in ROS Statement are negative. Past Medical History Past Medical History: GERD/Reflux, Hyperlipidemia, Hypertension, Rheumatoid Arthritis (RA) Additional Past Medical History / Comment(s): Pt states she has something wrong with her aorta but isn't sure what, anemia, History of Any Multi-Drug Resistant Organisms: None Reported Past Surgical History: Appendectomy, Breast Surgery, Cardiac Ablation, Cholecystectomy, Heart Catheterization, Hysterectomy Additional Past Surgical History / Comment(s): abliation, breast reducion, heart cath Past Anesthesia/Blood Transfusion Reactions: Postoperative Nausea & Vomiting (PONV) Past Psychological History: No Psychological Hx Reported Smoking Status: Never smoker Past Alcohol Use History: Occasional Past Drug Use History: None Reported - Past Family History Mother Family Medical History: No Reported History Brother(s) Family Medical History: Diabetes Mellitus, Rheumatoid Arthritis (RA) Sister(s) Family Medical History: Rheumatoid Arthritis (RA) General Exam Limitations: no limitations Course Vital Signs 01/21/20 10:36 Temperature 98.6 F Pulse Rate 69 Respiratory 18 Rate Blood Pressure 157/83 O2 Sat by Pulse 99 Oximetry Medical Decision Making - Lab Data Result diagrams: 01/21/20 11:26 01/21/20 11:26 Lab Results 01/21/20 01/21/20 01/21/20 Range/Units 10:51 11:26 11:26 WBC 7.6 (3.8-10.6) k/uL RBC 3.94 (3.80-5.40) m/uL Hgb 12.8 (11.4-16.0) gm/dL Hct 40.2 (34.0-46.0) % MCV 102.0 H (80.0-100.0) fL MCH 32.4 (25.0-35.0) pg MCHC 31.8 (31.0-37.0) g/dL RDW 14.2 (11.5-15.5) % Plt Count 211 (150-450) k/uL Neutrophils % 74 % Lymphocytes % 15 % Monocytes % 6 % Eosinophils % 3 % Basophils % 0 % Neutrophils # 5.6 (1.3-7.7) k/uL Lymphocytes # 1.1 (1.0-4.8) k/uL Monocytes # 0.5 (0-1.0) k/uL Eosinophils # 0.3 (0-0.7) k/uL Basophils # 0.0 (0-0.2) k/uL Macrocytosis Slight Sodium 140 (137-145) mmol/L Potassium 4.3 (3.5-5.1) mmol/L Chloride 107 (98-107) mmol/L Carbon Dioxide 27 (22-30) mmol/L Anion Gap 6 mmol/L BUN 15 (7-17) mg/dL Creatinine 0.73 (0.52-1.04) mg/dL Est GFR (CKD-EPI)AfAm >90 (>60 ml/min/1.73 sqM) Est GFR (CKD-EPI)NonAf 82 (>60 ml/min/1.73 sqM) Glucose 108 H (74-99) mg/dL Calcium 9.6 (8.4-10.2) mg/dL Total Bilirubin 1.1 (0.2-1.3) mg/dL AST 32 (14-36) U/L ALT 15 (4-34) U/L Alkaline Phosphatase 109 (38-126) U/L Total Protein 7.2 (6.3-8.2) g/dL Albumin 4.6 (3.5-5.0) g/dL Lipase 149 (23-300) U/L Urine Color Light Yellow Urine Appearance Clear (Clear) Urine pH 6.5 (5.0-8.0) Ur Specific [place] 1.004 (1.001-1.035) Urine Protein Negative (Negative) Urine Glucose (UA) Negative (Negative) Urine Ketones Negative (Negative) Urine Blood Negative (Negative) Urine Nitrite Negative (Negative) Urine Bilirubin Negative (Negative) Urine Urobilinogen <2.0 (<2.0) mg/dL Ur Leukocyte Esterase Negative (Negative) Disposition Clinical Impression: Back pain Disposition: HOME SELF-CARE Condition: Good Instructions (If sedation given, give patient instructions): Back Pain (ED) Is patient prescribed a controlled substance at d/c from ED?: No Referrals: Jonathan Dominguez MD [Primary Care Provider] - 1-2 days Time of Disposition: 13:02
[2020-01-21 11:04] LABS: Appearance,Urine Clear (Clear); Bilirubin,Urine Negative (Negative); Blood,Urine Negative (Negative); Color,Urine Light Yellow; Glucose,Urine (UA) Negative (Negative); Ketones,Urine Negative (Negative); Leukocyte Esterase,Urine Negative (Negative); Nitrite,Urine Negative (Negative); PH, Urine 6.5 (5.0-8.0); Protein,Urine Negative (Negative); Specific Gravity,Urine 1.004 (1.001-1.035); Urobilinogen,Urine <2.0 mg/dL (<2.0)
[2020-01-21 11:40] LABS: Basophils % (A) 0 %; Eosinophils # (A) 0.3 k/uL (0-0.7); Eosinophils % (A) 3 %; HCT 40.2 % (34.0-46.0); HGB 12.8 gm/dL (11.4-16.0); Lymphocytes # (A) 1.1 k/uL (1.0-4.8); Lymphocytes % (A) 15 %; MCH 32.4 pg (25.0-35.0); MCHC 31.8 g/dL (31.0-37.0); Macrocytosis Slight; Mean Platelet Volume 7.4; Monocytes # (A) 0.5 k/uL (0-1.0); Monocytes % (A) 6 %; Neutrophils # (A) 5.6 k/uL (1.3-7.7); Neutrophils % (A) 74 %; Platelet Count 211 k/uL (150-450); RBC 3.94 m/uL (3.80-5.40); RDW 14.2 % (11.5-15.5); WBC 7.6 k/uL (3.8-10.6)
--- NOTE | 2020-01-21 11:49 | XR ---
EXAMINATION TYPE: XR abdomen 1V DATE OF EXAM: 01/21/2020 COMPARISON: NONE HISTORY: Pain TECHNIQUE: One view abdominal series FINDINGS: The osseous structures are intact. The bowel gas pattern is nonspecific. Lung bases are clear. Curv ature of the spine with degenerative change of diffuse osteopenia. Surgical clips are seen in the rig ht upper quadrant. Hypertrophic change of the acetabulum. IMPRESSION: 1. Nonspecific abdomen.
--- NOTE | 2020-01-21 11:50 | XR ---
EXAMINATION TYPE: XR chest 2V DATE OF EXAM: 01/21/2020 COMPARISON: NONE TECHNIQUE: PA and lateral views submitted. HISTORY: Pain FINDINGS: The lungs are clear and there is no pneumothorax, pleural effusion, or focal pneumonia. Atheroscler otic change aorta. Diffuse osteopenia and arthropathy shoulders. No overt failure. Heart size normal. Hypertrophic changes of the spine. IMPRESSION: 1. No acute process.
[2020-01-21 12:26] LABS: ALT 15 U/L (4-34); AST 32 U/L (14-36); African American GFR (CKD) >90 (>60 ml/min/1.73 sqM); Albumin 4.6 g/dL (3.5-5.0); Alkaline Phosphatase 109 U/L (38-126); Anion Gap 6 mmol/L; Blood Urea Nitrogen 15 mg/dL (7-17); Calcium 9.6 mg/dL (8.4-10.2); Carbon Dioxide 27 mmol/L (22-30); Chloride 107 mmol/L (98-107); Glucose 108 mg/dL (74-99); Non-African American GFR(CKD) 82 (>60 ml/min/1.73 sqM); Potassium 4.3 mmol/L (3.5-5.1); Sodium 140 mmol/L (137-145); Total Bilirubin 1.1 mg/dL (0.2-1.3); Total Protein 7.2 g/dL (6.3-8.2)
[2020-01-21] MEDS ORDERED: LIDOCAINE 5% PATCH TOPICAL STA (13:00)
== END 2020-01-21 13:10 | disposition home or self-care (01) ==
LOC: EC 10:33
DX: M54.9 Dorsalgia, unspecified (principal); I10 Essential (primary) hypertension; K21.9 Gastro-esophageal reflux disease without esophagitis; E78.5 Hyperlipidemia, unspecified; D64.9 Anemia, unspecified; M06.9 Rheumatoid arthritis, unspecified; Z79.82 Long term (current) use of aspirin; Z79.1 Long term (current) use of non-steroidal anti-inflammatories (NSAID); Z79.899 Other long term (current) drug therapy; Z91.013 Allergy to seafood; Z91.048 Other nonmedicinal substance allergy status; Z90.89 Acquired absence of other organs; Z90.710 Acquired absence of both cervix and uterus; Z90.49 Acquired absence of other specified parts of digestive tract
CPT/HCPCS: 36415; 71046; 74018; 80053; 81003; 83690; 85025; 99284

== ENCOUNTER → 2020-03-14 | Outpatient (CLI) | payer MEDICARE ==
[2020-03-14 11:14] LABS: Basophils % (A) 0 %; Eosinophils # (A) 0.3 k/uL (0-0.7); Eosinophils % (A) 3 %; HCT 38.1 % (34.0-46.0); HGB 12.5 gm/dL (11.4-16.0); Lymphocytes # (A) 1.8 k/uL (1.0-4.8); Lymphocytes % (A) 21 %; MCH 32.9 pg (25.0-35.0); MCHC 32.9 g/dL (31.0-37.0); Macrocytosis Slight; Mean Platelet Volume 7.7; Monocytes # (A) 0.8 k/uL (0-1.0); Monocytes % (A) 9 %; Neutrophils # (A) 5.6 k/uL (1.3-7.7); Neutrophils % (A) 65 %; Platelet Count 195 k/uL (150-450); RBC 3.81 m/uL (3.80-5.40); RDW 14.5 % (11.5-15.5); WBC 8.6 k/uL (3.8-10.6)
[2020-03-14 11:18] LABS: MCV 100.2 fL (80.0-100.0)
[2020-03-14 12:52] LABS: Erythrocyte Sedimentation Rate 13 mm/hr (0-20)
[2020-03-14 18:55] LABS: ALT 21 U/L (8-44); AST 25 U/L (13-35); African American GFR (CKD) 84.8 (60.0-200.0); C Reactive Protein <0.4 mg/dL (0.0-0.8); Non-African American GFR(CKD) 73.1 (60.0-200.0)
== END | disposition home or self-care (01) ==
LOC: LABWHC1 09:46
PROVIDERS: ATTEND Internal Medicine Rheumatology
DX: M06.9 Rheumatoid arthritis, unspecified (principal)
CPT/HCPCS: 36415; 82565; 84450; 84460; 85025; 85652; 86140

== ENCOUNTER → 2020-04-27 | Outpatient (CLI) | payer MEDICARE ==
--- NOTE | 2020-05-01 09:18 | MM ---
Reason for exam: screening (asymptomatic). Last mammogram was performed 1 year and 6 months ago. History: Patient is postmenopausal. Reductions of both breasts, 1994. Physical Findings: A clinical breast exam by your physician is recommended on an annual basis and results should be correlated with mammographic findings. MG Screening Mammo w CAD Bilateral CC and MLO view(s) were taken. Prior study comparison: October 28, 2018, bilateral MG screening mammo w CAD. August 13, 2017, bilateral MG screening mammo w CAD. There are scattered fibroglandular densities. Scattered benign oil cysts. Stable dystrophic calcifications 9-10 o'clock right breast. No significant changes when compared with prior studies. ASSESSMENT: Negative, BI-RAD 1 RECOMMENDATION: Routine screening mammogram of both breasts in 1 year.
== END | disposition home or self-care (01) ==
LOC: RADMAMWWP 14:28
PROVIDERS: ATTEND Internal Medicine
DX: Z12.31 Encounter for screening mammogram for malignant neoplasm of breast (principal)
CPT/HCPCS: 77067

== ENCOUNTER → 2020-06-14 | Outpatient (CLI) | payer MEDICARE ==
[2020-06-14 20:25] LABS: Basophils # (A) 0.05 X 10*3/uL (0.00-0.10); Basophils % (A) 0.5 %; HCT 37.3 % (37.2-46.3); HGB 12.2 g/dL (12.0-15.0); Lymphocytes # (A) 1.84 X 10*3/uL (0.90-5.00); Lymphocytes % (A) 18.3 %; MCH 33.5 pg (27.0-32.0); MCHC 32.7 g/dL (32.0-37.0); MCV 102.5 fL (80.0-97.0); Mean Platelet Volume 11.1 fL (9.5-12.2); Monocytes # (A) 1.32 X 10*3/uL (0.20-1.00); Monocytes % (A) 13.1 %; Neutrophils # (A) 6.49 X 10*3/uL (1.80-7.70); Neutrophils % (A) 64.6 %; Platelet Count 234 X 10*3/uL (140-440); RBC 3.64 X 10*6/uL (4.10-5.20); RDW 14.4 % (11.5-14.5); WBC 10.05 X 10*3/uL (4.50-10.00)
[2020-06-14 20:46] LABS: ALT 22 U/L (8-44); AST 27 U/L (13-35); African American GFR (CKD) 99.6 (60.0-200.0); C Reactive Protein <0.4 mg/dL (0.0-0.8)
[2020-06-15 00:16] LABS: Erythrocyte Sedimentation Rate 9 mm/Hr (0-30)
== END | disposition home or self-care (01) ==
LOC: LABWHC1 08:46
PROVIDERS: ATTEND Internal Medicine Rheumatology
DX: M06.9 Rheumatoid arthritis, unspecified (principal)
CPT/HCPCS: 36415; 82565; 84450; 84460; 85025; 85652; 86140

== ENCOUNTER → 2020-10-10 | Outpatient (CLI) | payer MEDICARE ==
[2020-10-10 12:09] LABS: Basophils # (A) 0.06 X 10*3/uL (0.00-0.10); Basophils % (A) 0.7 %; Eosinophils % (A) 2.4 %; HCT 35.4 % (37.2-46.3); HGB 11.8 g/dL (12.0-15.0); Lymphocytes # (A) 1.71 X 10*3/uL (0.90-5.00); Lymphocytes % (A) 20.8 %; MCH 33.3 pg (27.0-32.0); MCHC 33.3 g/dL (32.0-37.0); Mean Platelet Volume 10.7 fL (9.5-12.2); Monocytes # (A) 1.16 X 10*3/uL (0.20-1.00); Monocytes % (A) 14.1 %; Neutrophils # (A) 5.04 X 10*3/uL (1.80-7.70); Neutrophils % (A) 61.5 %; Platelet Count 205 X 10*3/uL (140-440); RBC 3.54 X 10*6/uL (4.10-5.20); RDW 13.6 % (11.5-14.5); WBC 8.21 X 10*3/uL (4.50-10.00)
[2020-10-10 13:48] LABS: Erythrocyte Sedimentation Rate 16 mm/Hr (0-30)
[2020-10-10 16:08] LABS: ALT 16 U/L (8-44); AST 20 U/L (13-35); African American GFR (CKD) 84.8 (60.0-200.0); C Reactive Protein <0.4 mg/dL (0.0-0.8); Non-African American GFR(CKD) 73.1 (60.0-200.0)
== END | disposition home or self-care (01) ==
LOC: LABWHC1 08:18
PROVIDERS: ATTEND Internal Medicine Rheumatology
DX: M06.9 Rheumatoid arthritis, unspecified (principal)
CPT/HCPCS: 36415; 82565; 84450; 84460; 85025; 85652; 86140

== ENCOUNTER → 2021-06-14 | Outpatient (CLI) | payer MEDICARE ==
[2021-06-14 14:43] LABS: Basophils # (A) 0.04 X 10*3/uL (0.00-0.10); Basophils % (A) 0.5 %; Eosinophils # (A) 0.22 X 10*3/uL (0.04-0.35); Eosinophils % (A) 2.5 %; HCT 36.4 % (37.2-46.3); HGB 11.7 g/dL (12.0-15.0); Immature Grans, Automated 0.6 %; Lymphocytes # (A) 1.87 X 10*3/uL (0.90-5.00); Lymphocytes % (A) 21.3 %; MCH 32.1 pg (27.0-32.0); MCHC 32.1 g/dL (32.0-37.0); Mean Platelet Volume 10.8 fL (9.5-12.2); Monocytes # (A) 1.16 X 10*3/uL (0.20-1.00); Monocytes % (A) 13.2 %; NRBC Per 100 WBC 0 /100 WBCS (0.0-0.0); Neutrophils # (A) 5.45 X 10*3/uL (1.80-7.70); Neutrophils % (A) 61.9 %; Platelet Count 217 X 10*3/uL (140-440); RBC 3.64 X 10*6/uL (4.10-5.20); RDW 14.6 % (11.5-14.5); WBC 8.79 X 10*3/uL (4.50-10.00)
[2021-06-14 15:10] LABS: ALT 15 U/L (8-44); AST 22 U/L (13-35); African American GFR (CKD) 82.7 (60.0-200.0); C Reactive Protein <0.30 mg/dL (0.00-0.80); Non-African American GFR(CKD) 71.3 (60.0-200.0)
[2021-06-14 15:27] LABS: Erythrocyte Sedimentation Rate 6 mm/Hr (0-30)
== END | disposition home or self-care (01) ==
LOC: LABWHC1 08:22
PROVIDERS: ATTEND Internal Medicine Rheumatology
DX: M06.9 Rheumatoid arthritis, unspecified (principal)
CPT/HCPCS: 36415; 82565; 84450; 84460; 85025; 85652; 86140

== ENCOUNTER → 2021-08-16 | Outpatient (CLI) | payer MEDICARE ==
[~2021-08-16] MED LIST changes: +BEBTELOVIMAB (EUA) 175 MG/2 ML VIAL IV ONE; -LACTATED RINGERS 1,000 ML IV SCH; -LIDOCAINE 1% 20 ML VIAL (10MG/ML) FOR IV START INTRADERMA PRN; +SODIUM CHLORIDE 0.9% 500 ML 500 ML in EMPTY BAG 1 BAG IV PRN
[2021-08-16 11:39] VITALS: BP 135/72; PULSE 61; RESP 16; TEMP 97.7
== END ==
LOC: PROCWHC3 11:01
PROVIDERS: ATTEND Internal Medicine
DX: U07.1 COVID-19 (principal); I10 Essential (primary) hypertension; Z91.041 Radiographic dye allergy status; Z91.013 Allergy to seafood; Z87.891 Personal history of nicotine dependence
CPT/HCPCS: Q0222; M0222

== ENCOUNTER 2021-09-07 23:25 | Observation (INO) | payer MEDICARE ==
[2021-09-07] MEDS ORDERED: ASPIRIN 81 MG PO STA (23:57)
[2021-09-07] MEDS ORDERED: SODIUM CHLORIDE 0.9% 500 ML 500 ML IV STA (23:57)
--- NOTE | 2021-09-08 00:02 | ED ---
General Adult HPI - General Chief complaint: Chest Pain Stated complaint: chest pain Time Seen by Provider: 09/07/21 23:50 Source: patient, RN notes reviewed, old records reviewed Mode of arrival: ambulatory Limitations: no limitations - History of Present Illness Initial comments: Well-appearing 75-year-old female presents ambulatory with complaints of midsternal chest pain. Patient states that she took some melatonin pills at approximately 9:30pm and after she took them she felt like they were stuck in her chest. She states that she felt nauseated and her mouth was watering but did not vomit. She did drink some water and felt a little bit better however she stated that she was concerned about the chest pain and nausea and just wanted to be sure it was not a cardiac problem. She states that she is a patient of Dr. Morales'lela and was told if she developed chest pain to come to the emergency room. She states she has no pain at this time. No shortness of breath or difficulty in breathing. She denies any fevers. She states that she has been working in the garage and moving things for the past couple of days which aggravated her arthritis and has been having generalized body aches for past couple of days. -: hour(s) (2) Location: chest Severity scale (1-10): 0 Consistency: now resolved Associated Symptoms: nausea/vomiting (no vomiting) Treatments Prior to Arrival: none - Related Data Home Medications Medication Instructions Recorded Confirmed Atenolol [Tenormin] 25 mg PO HS 12/23/13 08/16/21 Folic Acid 1 mg PO DAILY 12/23/13 08/16/21 Omeprazole [PriLOSEC] 20 mg PO QAM 12/23/13 08/16/21 amLODIPine BESYLATE [Norvasc] 5 mg PO BID 12/23/13 08/16/21 metHOTREXate sodium [Methotrexate] 15 mg PO TH 12/23/13 08/16/21 Celecoxib [CeleBREX] 200 mg PO DAILY 05/10/16 08/16/21 Cholecalciferol (Vitamin D3) 2,000 unit PO DAILY 09/08/16 08/16/21 [Vitamin D3] Aspirin EC [Ecotrin Low Dose] 81 mg PO DAILY 01/21/20 08/16/21 Atorvastatin Calcium [Lipitor] 40 mg PO HS 10/17/20 05/13/22 Multivitamins, Thera [Multivitamin 1 tab PO DAILY 01/21/20 08/16/21 (formulary)] Zolpidem [Ambien] 10 mg PO HS PRN 01/21/20 08/16/21 traMADol HCL 50 mg PO TID PRN 01/21/20 08/16/21 Allergies Allergy/AdvReac Type Severity Reaction Status Date / Time Iodine and Iodide Containing Allergy Unknown Verified 09/07/21 23:42 Produc shellfish derived Allergy Rash/Hives Verified 09/07/21 23:42 Review of Systems ROS Statement: Those systems with pertinent positive or pertinent negative responses have been documented in the HPI. ROS Other: All systems not noted in ROS Statement are negative. Past Medical History Past Medical History: GERD/Reflux, Hyperlipidemia, Hypertension, Rheumatoid Arth ritis (RA) Additional Past Medical History / Comment(s): Pt states she has something wrong with her aorta but isn't sure what, anemia, MODERATE AORTIC STENOSIS History of Any Multi-Drug Resistant Organisms: None Reported Past Surgical History: Appendectomy, Breast Surgery, Cardiac Ablation, Cholecystectomy, Heart Catheterization, Hysterectomy Additional Past Surgical History / Comment(s): abliation, breast reducion, heart cath Past Anesthesia/Blood Transfusion Reactions: Postoperative Nausea & Vomiting (PONV) Past Psychological History: No Psychological Hx Reported Smoking Status: Never smoker Past Alcohol Use History: Occasional Past Drug Use History: None Reported - Past Family History Mother Family Medical History: No Reported History Brother(s) Family Medical History: Diabetes Mellitus, Rheumatoid Arthritis (RA) Sister(s) Family Medical History: Rheumatoid Arthritis (RA) General Exam Limitations: no limitations General appearance: alert, in no apparent distress Head exam: Present: atraumatic, normocephalic Eye exam: Present: normal appearance ENT exam: Present: mucous membranes moist Neck exam: Present: normal inspection, full ROM. Absent: tenderness, meningismus Respiratory exam: Present: normal lung sounds bilaterally. Absent: respiratory distress, wheezes, accessory muscle use, decreased breath sounds Cardiovascular Exam: Present: regular rate, normal rhythm GI/Abdominal exam: Present: soft Extremities exam: Present: normal capillary refill. Absent: pedal edema Neurological exam: Present: alert, oriented X3, normal gait Psychiatric exam: Present: normal affect, normal mood Skin exam: Present: warm, dry, normal color. Absent: cyanosis, diaphoretic, pallor Course Vital Signs 09/07/21 23:36 Temperature 97.6 F Pulse Rate 68 Respiratory 18 Rate Blood Pressure 130/63 O2 Sat by Pulse 95 Oximetry EKG Findings - EKG Results: EKG: sinus rhythm (Ventricular rate 61, HI interval 0.142, QRS 0.103, QTC 0.450) Medical Decision Making - Medical Decision Making EKG shows sinus rhythm with no ST elevation, troponin is negative at 0.012. Electrolytes and CBC were unremarkable. Patient's chest pain is resolved at this time. Patient states that she did have an echocardiogram with Dr. Morales in August 2021. She is scheduled for a stress test in December. With shared decision making patient is agreeable to staying in the hospital for evaluation by cardiology. Patient is unsure of the names of the medications that she takes on a daily basis. Will await pharmacy to reconcile her meds before ordering. She'll be placed in observation to trend troponin and cardiac consult. Case was discussed with Dr. Randall. - Lab Data Result diagrams: 09/08/21 00:05 09/08/21 00:05 Lab Results 09/08/21 09/08/21 09/08/21 Range/Units 00:05 00:05 00:05 WBC 8.0 (3.8-10.6) k/uL RBC 3.51 L (3.80-5.40) m/uL Hgb 11.4 (11.4-16.0) gm/dL Hct 35.5 (34.0-46.0) % MCV 101.1 H (80.0-100.0) fL MCH 32.4 (25.0-35.0) pg MCHC 32.1 (31.0-37.0) g/dL RDW 14.8 (11.5-15.5) % Plt Count 218 (150-450) k/uL MPV 7.9 Neutrophils % 58 % Lymphocytes % 25 % Monocytes % 8 % Eosinophils % 4 % Basophils % 1 % Neutrophils # 4.6 (1.3-7.7) k/uL Lymphocytes # 2.0 (1.0-4.8) k/uL Monocytes # 0.6 (0-1.0) k/uL Eosinophils # 0.3 (0-0.7) k/uL Basophils # 0.1 (0-0.2) k/uL Macrocytosis Slight PT 10.5 (9.0-12.0) sec INR 1.0 (<1.2) APTT 24.7 (22.0-30.0) sec Sodium 137 (137-145) mmol/L Potassium 3.8 (3.5-5.1) mmol/L Chloride 103 (98-107) mmol/L Carbon Dioxide 24 (22-30) mmol/L Anion Gap 10 mmol/L BUN 18 H (7-17) mg/dL Creatinine 0.78 (0.52-1.04) mg/dL Est GFR (CKD-EPI)AfAm 87 (>60 ml/min/1.73 sqM) Est GFR (CKD-EPI)NonAf 75 (>60 ml/min/1.73 sqM) Glucose 100 H (74-99) mg/dL Calcium 9.2 (8.4-10.2) mg/dL Magnesium 1.8 (1.6-2.3) mg/dL Total Bilirubin 1.2 (0.2-1.3) mg/dL AST 39 H (14-36) U/L ALT 20 (4-34) U/L Alkaline Phosphatase 116 (38-126) U/L Troponin I (0.000-0.034) ng/mL Total Protein 6.9 (6.3-8.2) g/dL Albumin 4.3 (3.5-5.0) g/dL 09/08/21 Range/Units 00:05 WBC (3.8-10.6) k/uL RBC (3.80-5.40) m/uL Hgb (11.4-16.0) gm/dL Hct (34.0-46.0) % MCV (80.0-100.0) fL MCH (25.0-35.0) pg MCHC (31.0-37.0) g/dL RDW (11.5-15.5) % Plt Count (150-450) k/uL MPV Neutrophils % % Lymphocytes % % Monocytes % % Eosinophils % % Basophils % % Neutrophils # (1.3-7.7) k/uL Lymphocytes # (1.0-4.8) k/uL Monocytes # (0-1.0) k/uL Eosinophils # (0-0.7) k/uL Basophils # (0-0.2) k/uL Macrocytosis PT (9.0-12.0) sec INR (<1.2) APTT (22.0-30.0) sec Sodium (137-145) mmol/L Potassium (3.5-5.1) mmol/L Chloride (98-107) mmol/L Carbon Dioxide (22-30) mmol/L Anion Gap mmol/L BUN (7-17) mg/dL Creatinine (0.52-1.04) mg/dL Est GFR (CKD-EPI)AfAm (>60 ml/min/1.73 sqM) Est GFR (CKD-EPI)NonAf (>60 ml/min/1.73 sqM) Glucose (74-99) mg/dL Calcium (8.4-10.2) mg/dL Magnesium (1.6-2.3) mg/dL Total Bilirubin (0.2-1.3) mg/dL AST (14-36) U/L ALT (4-34) U/L Alkaline Phosphatase (38-126) U/L Troponin I <0.012 (0.000-0.034) ng/mL Total Protein (6.3-8.2) g/dL Albumin (3.5-5.0) g/dL Disposition Clinical Impression: Atypical chest pain Disposition: ADMITTED IP TO THIS HOSP Decision Date: 09/08/21 Decision Time: 01:08
[2021-09-08 00:16] LABS: Basophils # (A) 0.1 k/uL (0-0.2); Basophils % (A) 1 %; Eosinophils # (A) 0.3 k/uL (0-0.7); Eosinophils % (A) 4 %; HCT 35.5 % (34.0-46.0); HGB 11.4 gm/dL (11.4-16.0); Lymphocytes % (A) 25 %; MCH 32.4 pg (25.0-35.0); MCHC 32.1 g/dL (31.0-37.0); MCV 101.1 fL (80.0-100.0); Macrocytosis Slight; Mean Platelet Volume 7.9; Monocytes # (A) 0.6 k/uL (0-1.0); Monocytes % (A) 8 %; Neutrophils # (A) 4.6 k/uL (1.3-7.7); Neutrophils % (A) 58 %; Platelet Count 218 k/uL (150-450); RBC 3.51 m/uL (3.80-5.40); RDW 14.8 % (11.5-15.5)
[2021-09-08 00:29] LABS: Partial Thromboplastin Time 24.7 sec (22.0-30.0); Prothrombin Time 10.5 sec (9.0-12.0)
--- NOTE | 2021-09-08 00:34 | XR ---
EXAMINATION TYPE: XR chest 2V DATE OF EXAM: 09/08/2021 COMPARISON: NONE HISTORY: 01/21/2020 TECHNIQUE: 2 view FINDINGS: Heart and mediastinum are normal. Lungs are clear. Diaphragm is normal. Bony thorax appears normal. IMPRESSION: No active cardiopulmonary disease. No change.
[2021-09-08 00:42] LABS: Albumin 4.3 g/dL (3.5-5.0); Calcium 9.2 mg/dL (8.4-10.2); Magnesium 1.8 mg/dL (1.6-2.3); Potassium 3.8 mmol/L (3.5-5.1); Total Bilirubin 1.2 mg/dL (0.2-1.3); Total Protein 6.9 g/dL (6.3-8.2)
[2021-09-08] MEDS ORDERED: ACETAMINOPHEN TAB 325 MG TAB PO PRN (01:09)
[2021-09-08] MEDS ORDERED: NALOXONE 0.4 MG/ML 1 ML VIAL IV PRN (01:09)
[2021-09-08 08:02] VITALS: BP 111/55; PULSE 60; RESP 16; TEMP 98.3
[2021-09-08] MEDS ORDERED: atenoloL 25 MG TAB PO SCH (09:00)
[2021-09-08] MEDS ORDERED: amLODIPine 5 MG TAB PO SCH (09:00)
[2021-09-08] MEDS ORDERED: ASPIRIN 81 MG PO SCH (09:00)
--- NOTE | 2021-09-08 09:35 | P.HPIM ---
History of Present Illness H&P Date: 09/08/21 Chief Complaint: Chest pain Luba Roldan, is a 75 year old female who presented to [facility] emergency room with a chief complaint of chest pain, patient states that she took a pill of melatonin prior to going to bed and felt that the pill was stuck in the middle of her chest she started having episodes of chest pain and nausea she was concerned that this may be of cardiac origin. She was evaluated in the emergency room vital examination on presentation revealed a temperature of 97.6 pulse 68 respiration 18 blood pressure 130/63 pulse ox 95% on room air Laboratory data revealed a white blood count of 8.0 hemoglobin 11.4 platelet count 218 sodium 138 potassium 3.8 chloride 103 CO2 24 BUN 18 creatinine 0.78 troponin level was less than 0.012 Testing in the emergency room revealed chest x-ray done in the emergency room revealed no active cardiopulmonary disease, EKG done in the emergency room reveals normal sinus rhythm normal EKG. Patient was admitted to medical floor for further evaluation and treatmen, cardiology consultation was requested. Past medical history is significant for history of hypertension, history of hyperlipidemia, history of rheumatoid arthritis, history of gastroesophageal reflux disease, history of meningioma, history of See's palsy, history of cardiac catheterization and history of cardiac ablation in the past. Past Medical History Past Medical History: GERD/Reflux, Hyperlipidemia, Hypertension, Rheumatoid Arthritis (RA) Additional Past Medical History / Comment(s): Pt states she has something wrong with her aorta but isn't sure what, anemia, MODERATE AORTIC STENOSIS History of Any Multi-Drug Resistant Organisms: None Reported Past Surgical History: Appendectomy, Breast Surgery, Cardiac Ablation, Cholecystectomy, Heart Catheterization, Hysterectomy Additional Past Surgical History / Comment(s): abliation, breast reducion, heart cath Past Anesthesia/Blood Transfusion Reactions: Postoperative Nausea & Vomiting (PONV) Past Psychological History: No Psychological Hx Reported Smoking Status: Never smoker Past Alcohol Use History: Occasional Additional Past Alcohol Use History / Comment(s): quit smoking 30 yrs ago, smoked for 20 yrs, 1/2 PPD Past Drug Use History: None Reported - Past Family History Mother Family Medical History: No Reported History Brother(s) Family Medical History: Diabetes Mellitus, Rheumatoid Arthritis (RA) Sister(s) Family Medical History: Rheumatoid Arthritis (RA) Medications and Allergies Home Medications Medication Instructions Recorded Confirmed Type Atenolol [Tenormin] 25 mg PO HS 12/23/13 08/16/21 History Folic Acid 1 mg PO DAILY 12/23/13 08/16/21 History Omeprazole [PriLOSEC] 20 mg PO QAM 12/23/13 08/16/21 History amLODIPine BESYLATE [Norvasc] 5 mg PO BID 12/23/13 08/16/21 History metHOTREXate sodium [Methotrexate] 15 mg PO TH 12/23/13 08/16/21 History Celecoxib [CeleBREX] 200 mg PO DAILY 05/10/16 08/16/21 History Cholecalciferol (Vitamin D3) 2,000 unit PO DAILY 09/08/16 08/16/21 History [Vitamin D3] Aspirin EC [Ecotrin Low Dose] 81 mg PO DAILY 01/21/20 08/16/21 History Atorvastatin Calcium [Lipitor] 40 mg PO HS 01/21/20 08/16/21 History Multivitamins, Thera [Multivitamin 1 tab PO DAILY 01/21/20 08/16/21 History (formulary)] Zolpidem [Ambien] 10 mg PO HS PRN 01/21/20 08/16/21 History traMADol HCL 50 mg PO TID PRN 01/21/20 08/16/21 History Allergies Allergy/AdvReac Type Severity Reaction Status Date / Time Iodine and Iodide Containing Allergy Unknown Verified 09/07/21 23:42 Produc shellfish derived Allergy Rash/Hives Verified 09/07/21 23:42 Physical Exam Vitals: Vital Signs Temp Pulse Pulse Resp BP BP Pulse Ox 09/08/21 02:30 98.1 F 61 14 116/63 95 09/08/21 02:16 98 F 79 20 137/79 97 09/07/21 23:36 97.6 F 68 18 130/63 95 Intake and Output 09/07/21 09/08/21 09/08/21 22:59 06:59 14:59 Other: Voiding Method Toilet # Voids 1 Weight 68.039 kg In general patient is alert and oriented x 3 in no distress HEENT head normocephalic and atraumatic Neck is supple no JVD no goiter no lymphadenopathy no carotid bruit Chest examination is clear to auscultation no crackles no wheezing Cardiac exam reveals regular heart sounds S1 and S2 no gallops no murmurs Abdomen is soft nontender no organomegaly with normal bowel sounds Extremity exam reveals no edema no cyanosis or clubbing Neurological examination reveals no gross focal deficits Results CBC & Chem 7: 09/08/21 00:05 09/08/21 00:05 Labs: Abnormal Lab Results - Last 24 Hours (Table) 09/08/21 09/08/21 Range/Units 00:05 00:05 RBC 3.51 L (3.80-5.40) m/uL MCV 101.1 H (80.0-100.0) fL BUN 18 H (7-17) mg/dL Glucose 100 H (74-99) mg/dL AST 39 H (14-36) U/L Assessment and Plan Plan: Episode of atypical chest pain, serial EKG and cardiac enzymes ordered cardiol ogy consultation requested Underlying history of hypertension Underlying history of hyperlipidemia History of cardiac arrhythmia, with history of cardiac ablation at [facility] more than 30 years ago Underlying history of rheumatoid arthritis Underlying history of osteoarthritis Sleep disturbance maintained on melatonin. Feeling that pill was stuck in the esophagus, patient denies any prior history to feeling food stuck or other pills stuck, at this time no need for any intervention, if issue recur will arrange for EGD as outpatient At this time patient is admitted to telemetry floor Serial EKG and cardiac enzymes were ordered Cardiology consultation requested Will follow closely
--- NOTE | 2021-09-08 12:11 | P.CRDCN ---
History of Present Illness Consult date: 09/08/21 Consult reason: chest pain History of present illness: History of present illness: This is a 75-year-old female patient of Dr. SHABNAM Morales with history of moderate aortic stenosis, rheumatoid arthritis on methotrexate, hypertension, hyperlipidemia, See's palsy and meningioma of the left sphenoid. Patient does have history of cardiac ablation done many years ago at [facility] for tachycardia. She relates that she had a heart catheterization before 2013 that revealed no significant coronary artery disease. She last saw Dr. Morales 2 weeks ago and is scheduled for stress test in December. Patient states that she was in bed and developed mid sternal chest pain after she had taken a tramadol and melatonin and topicals were stuck in her esophagus. She ended up drinking some water and within 15 minutes the discomfort went away. She denies any radiation of the pain, breath, no lightheadedness or dizziness. She remains pain-free at this time. Patient came into [facility] emergency center for evaluation. She was found to be afebrile, heart rate 68, blood pressure 135/72, pulse ox 97% on room air. EKG was a normal sinus rhythm without acute ST changes. Chest x-ray showed no acute cardiopulmonary process. Troponin negative 1. Review Of Systems: Constitutional: No fever, no chills. No weakness, fatigue or lethargy. EENT: No headache. No dizziness. Lungs: No shortness of breath, cough, no sputum production. No wheezing. Cardiovascular: No chest pain-chest pain has resolved, no lower extremity edema. No palpitations. No paroxysmal nocturnal dyspnea. No orthopnea. No lightheadedness or dizziness. No syncopal episodes. Abdominal: No abdominal pain. No nausea, vomiting. No diarrhea. No constipation. No bloody or tarry stools.. No loss of appetite. Genitourinary: No dysuria.. No urinary retention. Musculoskeletal: No myalgias. No muscle weakness, no gait dysfunction, no frequent falls. No back pain. No neck pain. Integumentary: No wounds, no lesions. No rash or pruritus. No unusual bruising. Neurologic: No aphasia. No facial droop. No change in mentation. No head injury. No headache. No paralysis. No paresthesia. Psychiatric: No depression. No anxiety. Endocrine: No abnormal blood sugars. Physical examination: Gen: This is a 75-year-old female. She is resting in bed appears to be comfortable and in no acute distress. HEENT: Head is atraumatic, normocephalic. Pupils equal, round. Sclerae is anicteric. NECK: Supple. No JVD. No lymphadenopathy. No thyromegaly. LUNGS: Clear to auscultation. No wheezes or rhonchi. No intercostal retractions. HEART: Regular rate and rhythm. 3/6 systolic murmur. ABDOMEN: Soft. Bowel sounds are present. No masses. No tenderness. EXTREMITIES: No pedal edema. No calf tenderness. NEUROLOGICAL: Patient is awake, alert and oriented x3. Cranial nerves 2 through 12 are grossly intact. Assessment: Chest pain, noncardiac Moderate aortic stenosis Hypertension Hyperlipidemia Rheumatoid arthritis Plan: Repeat troponins ordered Increase activity and ambulate patient If patient does not have recurrence of chest pain with activity and troponins are negative, she is cleared for discharge home with planned follow-up with Dr. SHABNAM Morales in one to 2 weeks Thank you kindly for this consultation. Nurse practitioner note has been reviewed, I agree with documented findings and plan of care. Patient was seen and examined. Past Medical History Past Medical History: GERD/Reflux, Hyperlipidemia, Hypertension, Rheumatoid Arthritis (RA) Additional Past Medical History / Comment(s): Pt states she has something wrong with her aorta but isn't sure what, anemia, MODERATE AORTIC STENOSIS History of Any Multi-Drug Resistant Organisms: None Reported Past Surgical History: Appendectomy, Breast Surgery, Cardiac Ablation, Cholecystectomy, Heart Catheterization, Hysterectomy Additional Past Surgical History / Comment(s): abliation, breast reducion, heart cath Past Anesthesia/Blood Transfusion Reactions: Postoperative Nausea & Vomiting (PONV) Past Psychological History: No Psychological Hx Reported Smoking Status: Never smoker Past Alcohol Use History: Occasional Additional Past Alcohol Use History / Comment(s): quit smoking 30 yrs ago, smoked for 20 yrs, 1/2 PPD Past Drug Use History: None Reported - Past Family History Mother Family Medical History: No Reported History Brother(s) Family Medical History: Diabetes Mellitus, Rheumatoid Arthritis (RA) Sister(s) Family Medical History: Rheumatoid Arthritis (RA) Medications and Allergies Home Medications Medication Instructions Recorded Confirmed Type Atenolol [Tenormin] 25 mg PO HS 12/23/13 08/16/21 History Folic Acid 1 mg PO DAILY 12/23/13 08/16/21 History Omeprazole [PriLOSEC] 20 mg PO QAM 12/23/13 08/16/21 History amLODIPine BESYLATE [Norvasc] 5 mg PO BID 12/23/13 08/16/21 History metHOTREXate sodium [Methotrexate] 15 mg PO TH 12/23/13 08/16/21 History Celecoxib [CeleBREX] 200 mg PO DAILY 05/10/16 08/16/21 History Cholecalciferol (Vitamin D3) 2,000 unit PO DAILY 09/08/16 08/16/21 History [Vitamin D3] Aspirin EC [Ecotrin Low Dose] 81 mg PO DAILY 01/21/20 08/16/21 History Atorvastatin Calcium [Lipitor] 40 mg PO HS 01/21/20 08/16/21 History Multivitamins, Thera [Multivitamin 1 tab PO DAILY 01/21/20 08/16/21 History (formulary)] Zolpidem [Ambien] 10 mg PO HS PRN 01/21/20 08/16/21 History traMADol HCL 50 mg PO TID PRN 01/21/20 08/16/21 History Allergies Allergy/AdvReac Type Severity Reaction Status Date / Time Iodine and Iodide Containing Allergy Unknown Verified 09/07/21 23:42 Produc shellfish derived Allergy Rash/Hives Verified 09/07/21 23:42 Physical Exam Vitals: Vital Signs Temp Pulse Pulse Resp BP BP Pulse Ox 09/08/21 07:00 98.3 F 60 16 111/55 96 09/08/21 02:30 98.1 F 61 14 116/63 95 09/08/21 02:16 98 F 79 20 137/79 97 09/07/21 23:36 97.6 F 68 18 130/63 95 Intake and Output 09/07/21 09/08/21 09/08/21 22:59 06:59 14:59 Other: Voiding Method Toilet # Voids 1 Weight 68.039 kg Results 09/08/21 00:05 09/08/21 00:05 Cardiac Enzymes 09/08/21 09/08/21 Range/Units 00:05 00:05 AST 39 H (14-36) U/L Troponin I <0.012 (0.000-0.034) ng/mL Coagulation 09/08/21 Range/Units 00:05 PT 10.5 (9.0-12.0) sec APTT 24.7 (22.0-30.0) sec CBC 09/08/21 Range/Units 00:05 WBC 8.0 (3.8-10.6) k/uL RBC 3.51 L (3.80-5.40) m/uL Hgb 11.4 (11.4-16.0) gm/dL Hct 35.5 (34.0-46.0) % Plt Count 218 (150-450) k/uL Comprehensive Metabolic Panel 09/08/21 Range/Units 00:05 Sodium 137 (137-145) mmol/L Potassium 3.8 (3.5-5.1) mmol/L Chloride 103 (98-107) mmol/L Carbon Dioxide 24 (22-30) mmol/L BUN 18 H (7-17) mg/dL Creatinine 0.78 (0.52-1.04) mg/dL Glucose 100 H (74-99) mg/dL Calcium 9.2 (8.4-10.2) mg/dL AST 39 H (14-36) U/L ALT 20 (4-34) U/L Alkaline Phosphatase 116 (38-126) U/L Total Protein 6.9 (6.3-8.2) g/dL Albumin 4.3 (3.5-5.0) g/dL Current Medications Generic Name Dose Route Start Last Admin Trade Name Freq PRN Reason Stop Dose Admin Acetaminophen 650 mg 09/08/21 01:09 Acetaminophen Tab 325 Mg Tab PO Q6HR PRN Mild Pain or Fever > 100.5 Naloxone HCl 0.2 mg 09/08/21 01:09 Naloxone 0.4 Mg/Ml 1 Ml Vial IV Q2M PRN Opioid Reversal Intake and Output 09/07/21 09/08/21 09/08/21 22:59 06:59 14:59 Other: Voiding Method Toilet # Voids 1 Weight 68.039 kg 09/08/21 00:05 09/08/21 00:05
[2021-09-08] MEDS ORDERED: ATORVASTATIN 40 MG TAB PO SCH (21:00)
--- NOTE | 2021-09-11 12:28 | P.DS ---
Providers Date of admission: 09/08/21 01:32 Expected date of discharge: 09/08/21 Attending physician: Jonathan Dominguez Consults: 09/08/21 01:09 Consult Physician Routine Consulting Provider: Leeroy Ying Consult Reason/Comments: Atypical chest pain Do you want consulting provider notified?: Yes Primary care physician: Jonathan [facility] Course: Diagnosis on discharge: Episode of atypical chest pain, serial EKG and cardiac enzymes ordered cardiology consultation requested Underlying history of hypertension Underlying history of hyperlipidemia History of cardiac arrhythmia, with history of cardiac ablation at [facility] more than 30 years ago Underlying history of rheumatoid arthritis Underlying history of osteoarthritis Sleep disturbance maintained on melatonin. Feeling that pill was stuck in the esophagus, patient denies any prior history to feeling food stuck or other pills stuck, at this time no need for any intervention, if issue recur will arrange for EGD as outpatient Hospital course: Luba Roldan, is a 75 year old female who presented to [facility] emergency room with a chief complaint of chest pain, patient states that she took a pill of melatonin prior to going to bed and felt that the pill was stuck in the middle of her chest she started having episodes of chest pain and nausea she was concerned that this may be of cardiac origin. She was evaluated in the emergency room vital examination on presentation revealed a temperature of 97.6 pulse 68 respiration 18 blood pressure 130/63 pulse ox 95% on room air Laboratory data revealed a white blood count of 8.0 hemoglobin 11.4 platelet count 218 sodium 138 potassium 3.8 chloride 103 CO2 24 BUN 18 creatinine 0.78 troponin level was less than 0.012 Testing in the emergency room revealed chest x-ray done in the emergency room revealed no active cardiopulmonary disease, EKG done in the emergency room rev eals normal sinus rhythm normal EKG. Patient was admitted to medical floor for further evaluation and treatmen, cardiology consultation was requested. Past medical history is significant for history of hypertension, history of hyperlipidemia, history of rheumatoid arthritis, history of gastroesophageal reflux disease, history of meningioma, history of See's palsy, history of cardiac catheterization and history of cardiac ablation in the past. On 09/08/2021 Patient was evaluated by cardiology services and cleared for discharge. Patient to follow-up with cardiology services in 2 weeks Plan - Discharge Summary New Discharge Prescriptions: Continue amLODIPine BESYLATE [Norvasc] 5 mg PO BID Folic Acid 1 mg PO DAILY Atenolol [Tenormin] 25 mg PO BID metHOTREXate sodium [Methotrexate] 15 mg PO TH Celecoxib [CeleBREX] 200 mg PO DAILY traMADol HCL 50 mg PO TID PRN PRN Reason: Pain Zolpidem [Ambien] 10 mg PO HS PRN PRN Reason: Insomnia Atorvastatin Calcium [Lipitor] 40 mg PO DAILY No Action Fluticasone Nasal [place] [Flonase Nasal [place]] 1 spray EA NOSTRIL DAILY PRN PRN Reason: Allergy Symptoms Tab-A-Lawanda Multivitamin 1 tab PO DAILY Pantoprazole Sodium [Protonix] 40 mg PO DAILY Zinc 50 mg PO DAILY ALPRAZolam [Xanax] 0.25 mg PO BID PRN PRN Reason: Anxiety Melatonin 10 mg PO HS Ascorbic Acid [Vitamin C] 500 mg PO DAILY hydroCHLOROthiazide [Hydrodiuril] 25 mg PO DAILY Cholecalciferol [Vitamin D3 (25 Mcg = 1000 Iu)] 25 mcg PO DAILY Discharge Medication List Atenolol [Tenormin] 25 mg PO BID 12/23/13 [History] Folic Acid 1 mg PO DAILY 12/23/13 [History] amLODIPine BESYLATE [Norvasc] 5 mg PO BID 12/23/13 [History] metHOTREXate sodium [Methotrexate] 15 mg PO TH 12/23/13 [History] Celecoxib [CeleBREX] 200 mg PO DAILY 05/10/16 [History] Atorvastatin Calcium [Lipitor] 40 mg PO DAILY 01/21/20 [History] Zolpidem [Ambien] 10 mg PO HS PRN 01/21/20 [History] traMADol HCL 50 mg PO TID PRN 01/21/20 [History] ALPRAZolam [Xanax] 0.25 mg PO BID PRN 09/08/21 [History] Ascorbic Acid [Vitamin C] 500 mg PO DAILY 09/08/21 [History] Cholecalciferol [Vitamin D3 (25 Mcg = 1000 Iu)] 25 mcg PO DAILY 09/08/21 [History] Fluticasone Nasal [place] [Flonase Nasal [place]] 1 spray EA NOSTRIL DAILY PRN 09/08/21 [History] Melatonin 10 mg PO HS 09/08/21 [History] Pantoprazole Sodium [Protonix] 40 mg PO DAILY 09/08/21 [History] Tab-A-Lawanda Multivitamin 1 tab PO DAILY 09/08/21 [History] Zinc 50 mg PO DAILY 09/08/21 [History] hydroCHLOROthiazide [Hydrodiuril] 25 mg PO DAILY 09/08/21 [History] Follow up Appointment(s)/Referral(s): Jonathan Dominguez MD [Primary Care Provider] - 1-2 days Patient Instructions/Handouts: Chest Pain (DC) Discharge Disposition: HOME SELF-CARE
== END 2021-09-08 14:34 | disposition home or self-care (01) ==
LOC: EC 23:25 → 6NMEDSUR 09-08 01:32
PROVIDERS: ADMIT Internal Medicine; ATTEND Internal Medicine
DX: R07.2 Precordial pain (principal); I35.0 Nonrheumatic aortic (valve) stenosis; I10 Essential (primary) hypertension; E78.5 Hyperlipidemia, unspecified; M06.9 Rheumatoid arthritis, unspecified; F45.8 Other somatoform disorders; M19.90 Unspecified osteoarthritis, unspecified site; D64.9 Anemia, unspecified; K21.9 Gastro-esophageal reflux disease without esophagitis; G47.9 Sleep disorder, unspecified; Z79.1 Long term (current) use of non-steroidal anti-inflammatories (NSAID); Z79.82 Long term (current) use of aspirin; Z79.899 Other long term (current) drug therapy; Z91.013 Allergy to seafood; Z91.048 Other nonmedicinal substance allergy status; Z90.710 Acquired absence of both cervix and uterus; Z87.891 Personal history of nicotine dependence; Z86.011 Personal history of benign neoplasm of the brain; Z98.890 Other specified postprocedural states; Z90.49 Acquired absence of other specified parts of digestive tract; Z83.3 Family history of diabetes mellitus; Z82.61 Family history of arthritis
CPT/HCPCS: 99285; 96360; 36415; 93005; 85379; 80053; 83735; 84484; 85025; 85610; 85730; 71046; G0378

== ENCOUNTER → 2021-10-04 | Outpatient (CLI) | payer MEDICARE ==
--- NOTE | 2021-10-08 18:27 | MM ---
Reason for Exam: Screening (asymptomatic). Last mammogram was performed 1 year(s) and 6 month(s) ago. Patient History: Menarche at age 16. First Full-Term at age 19. Right ovary removed at age 46. Postmenopausal. 1993, Bilateral Reduction. Risk Values: Reina 5 year model risk: 1.2%. NCI Lifetime model risk: 2.7%. Prior Study Comparison: 08/13/2017 Bilateral Screening Mammogram, [facility]. 10/28/2018 Bilateral Screening Mammogram, [facility]. 04/27/2020 Bilateral Screening Mammogram, [facility]. Tissue Density: There are scattered fibroglandular densities. Findings: Analyzed By CAD. Changes of bilateral reduction mammoplasty. Benign oil cyst calcifications bilaterally. Areas of asymmetric density on the left remain unchanged. No significant change from prior exams. Overall Assessment: Benign, BI-RAD 2 Management: Screening Mammogram of both breasts in 1 year. 1. Patient should continue monthly self breast exams. 2. A clinical breast exam by your physician is recommended on an annual basis. 3. This exam should not preclude additional follow-up of suspicious palpable abnormalities. Electronically signed and approved by: Trever Wray M.D. Radiologist
== END | disposition home or self-care (01) ==
LOC: RADMAMWWP 09:08
PROVIDERS: ATTEND Internal Medicine
DX: Z12.31 Encounter for screening mammogram for malignant neoplasm of breast (principal); Z78.0 Asymptomatic menopausal state
CPT/HCPCS: 77063; 77067

== ENCOUNTER 2022-02-18 10:49 | Observation (INO) | payer MEDICARE ==
[2022-02-18] MEDS ORDERED: SODIUM CHLORIDE 0.9% 500 ML 500 ML IV STA (11:33)
--- NOTE | 2022-02-18 11:42 | ED ---
Chest Pain HPI - General Chief Complaint: Chest Pain Stated Complaint: Heart Problems, SOB Time Seen by Provider: 02/18/22 11:25 Source: patient, RN notes reviewed, old records reviewed Mode of arrival: ambulatory Limitations: no limitations - History of Present Illness Initial Comments: 76 year female presents emergency room with complaints of chest pain today under her right breast. States got up at 0730 and had coffee and fig bradley when pain started, lasted about 15 minutes. Denies any shortness of breath or diaphoresis. No nausea or vomiting. She thought it might be gas and did take a Tums with some relief. 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 She does have a history of GERD and hypertension MD Complaint: chest pain -: hour(s) Severity scale (1-10): 2 Quality: aching Improves With: antacids (tums) - Related Data Home Medications Medication Instructions Recorded Confirmed Atenolol [Tenormin] 25 mg PO BID 12/23/13 09/08/21 Folic Acid 1 mg PO DAILY 12/23/13 09/08/21 amLODIPine BESYLATE [Norvasc] 5 mg PO BID 12/23/13 09/08/21 metHOTREXate sodium [Methotrexate] 15 mg PO TH 12/23/13 09/08/21 Celecoxib [CeleBREX] 200 mg PO DAILY 05/10/16 09/08/21 Atorvastatin Calcium [Lipitor] 40 mg PO DAILY 01/21/20 09/08/21 Zolpidem [Ambien] 10 mg PO HS PRN 01/21/20 09/08/21 traMADol HCL 50 mg PO TID PRN 01/21/20 09/08/21 ALPRAZolam [Xanax] 0.25 mg PO BID PRN 09/08/21 09/08/21 Ascorbic Acid [Vitamin C] 500 mg PO DAILY 09/08/21 09/08/21 Cholecalciferol [Vitamin D3 (25 25 mcg PO DAILY 09/08/21 09/08/21 Mcg = 1000 Iu)] Fluticasone Nasal [place] [Flonase 1 spray EA NOSTRIL DAILY PRN 09/08/21 09/08/21 Nasal [place]] Melatonin [Melatonin ER] 10 mg PO HS 09/08/21 09/08/21 Pantoprazole Sodium [Protonix] 40 mg PO DAILY 09/08/21 09/08/21 Tab-A-Lawanda Multivitamin 1 tab PO DAILY 09/08/21 09/08/21 Zinc 50 mg PO DAILY 09/08/21 09/08/21 hydroCHLOROthiazide [Hydrodiuril] 25 mg PO DAILY 09/08/21 09/08/21 Allergies Allergy/AdvReac Type Severity Reaction Status Date / Time Iodine and Iodide Containing Allergy Unknown Verified 02/18/22 11:03 Produc shellfish derived Allergy Rash/Hives Verified 02/18/22 11:03 Review of Systems ROS Statement: Those systems with pertinent positive or pertinent negative responses have been documented in the HPI. ROS Other: All systems not noted in ROS Statement are negative. EKG Findings - EKG Results: EKG shows: bradycardia (EKG shows sinus bradycardia 58, [place] interval 0.133, QRS 0.93, QTC 0.452; normal axis) Past Medical History Past Medical History: GERD/Reflux, Hyperlipidemia, Hypertension, Rheumatoid Arthritis (RA) Additional Past Medical History / Comment(s): Pt states she has something wrong with her aorta but isn't sure what, anemia, MODERATE AORTIC STENOSIS History of Any Multi-Drug Resistant Organisms: None Reported Past Surgical History: Appendectomy, Breast Surgery, Cardiac Ablation, Cholecystectomy, Heart Catheterization, Hysterectomy Additional Past Surgical History / Comment(s): abliation, breast reducion, heart cath Past Anesthesia/Blood Transfusion Reactions: Postoperative Nausea & Vomiting (PONV) Past Psychological History: No Psychological Hx Reported Smoking Status: Never smoker Past Alcohol Use History: Occasional Past Drug Use History: None Reported - Past Family History Mother Family Medical History: No Reported History Brother(s) Family Medical History: Diabetes Mellitus, Rheumatoid Arthritis (RA) Sister(s) Family Medical History: Rheumatoid Arthritis (RA) General Exam Limitations: no limitations General appearance: alert, in no apparent distress Head exam: Present: atraumatic Eye exam: Present: normal appearance. Absent: scleral icterus, conjunctival injection, periorbital swelling ENT exam: Present: mucous membranes moist Neck exam: Present: normal inspection, full ROM. Absent: tenderness, meningismus Respiratory exam: Present: normal lung sounds bilaterally. Absent: respiratory distress, accessory muscle use Cardiovascular Exam: Present: bradycardia GI/Abdominal exam: Present: soft. Absent: distended, tenderness, rigid Extremities exam: Present: normal capillary refill. Absent: pedal edema Neurological exam: Present: alert, oriented X3 Psychiatric exam: Present: normal affect, normal mood Skin exam: Present: warm, dry, intact, normal color. Absent: cyanosis, diaphoretic, petechiae, pallor Course Vital Signs 02/18/22 02/18/22 11:01 13:38 Temperature 98 F Pulse Rate 70 57 L Respiratory 20 18 Rate Blood Pressure 148/66 153/99 O2 Sat by Pulse 99 96 Oximetry Chest Pain MDM - [facility] Well-appearing 76-year-old female presents with chest pain since morning lasting approximately 15 minutes. Denies any diaphoresis. No shortness of breath, n ausea or vomiting. EKG interpreted by me shows sinus bradycardia with no ST elevation. Normal axis. Patient states her chest pain lasted 15 minutes and resolved after taking Tums. She did have a stress test and echocardiogram at Dr. Lozano office in December of this year. She was advised of her test results and with shared decision making states will more comfortable staying overnight. Patient does have a cardiac history and therefore will be placed in observation. Case discussed with Dr. Yan. Patient is pain-free at this time. Vital signs are stable. - Wells Criteria Clinical Symptoms of DVT: (0) No No Alternative Diagnosis: (0) No Immobilization of Surgery in Previous 4 Weeks: (0) No Previous DVT/PE: (0) No Hemoptysis: (0) No Malignancy: (0) No Disposition Clinical Impression: Chest pain Disposition: ADMITTED IP TO THIS [facility] Referrals: Jonathan Dominguez MD [Primary Care Provider] - 1-2 days Decision Date: 02/18/22 Decision Time: 13:23
[2022-02-18 12:05] LABS: Basophils % (A) 0 %; Eosinophils # (A) 0.2 k/uL (0-0.7); Eosinophils % (A) 2 %; HCT 36.9 % (34.0-46.0); HGB 12.7 gm/dL (11.4-16.0); Lymphocytes # (A) 1.5 k/uL (1.0-4.8); Lymphocytes % (A) 15 %; MCH 32.8 pg (25.0-35.0); MCHC 34.4 g/dL (31.0-37.0); MCV 95.6 fL (80.0-100.0); Mean Platelet Volume 8.5; Monocytes # (A) 0.8 k/uL (0-1.0); Monocytes % (A) 7 %; Neutrophils # (A) 7.7 k/uL (1.3-7.7); Neutrophils % (A) 73 %; Platelet Count 206 k/uL (150-450); RBC 3.87 m/uL (3.80-5.40); RDW 14.6 % (11.5-15.5); WBC 10.5 k/uL (3.8-10.6)
--- NOTE | 2022-02-18 12:06 | XR ---
EXAMINATION TYPE: XR chest 2V DATE OF EXAM: 02/18/2022 COMPARISON: 09/08/2021 TECHNIQUE: PA and lateral views submitted. HISTORY: Shortness of breath FINDINGS: The lungs are clear and there is no pneumothorax, pleural effusion, or focal pneumonia. Atheroscler otic change aorta. Heart size normal. No overt failure. There is a new nodule at the right lung apex measuring 8 mm. Hyperinflation suggests COPD. Degenerative changes spine. Surgical clips gallbladder fossa. Arthropathy of the shoulders with diffuse osteopenia. IMPRESSION: 1. No acute process. 2. There is finding suggestive of COPD with a new 8 mm nodule in the right upper lobe. Recommend CT c hest.
[2022-02-18 12:15] LABS: ALT 17 U/L (4-34); AST 26 U/L (14-36); African American GFR (CKD) >90 (>60 ml/min/1.73 sqM); Albumin 4.7 g/dL (3.5-5.0); Alkaline Phosphatase 134 U/L (38-126); Anion Gap 11 mmol/L; Blood Urea Nitrogen 16 mg/dL (7-17); Calcium 9.6 mg/dL (8.4-10.2); Carbon Dioxide 25 mmol/L (22-30); Chloride 102 mmol/L (98-107); Glucose 98 mg/dL (74-99); Magnesium 1.8 mg/dL (1.6-2.3); Non-African American GFR(CKD) 87 (>60 ml/min/1.73 sqM); Potassium 3.9 mmol/L (3.5-5.1); Sodium 138 mmol/L (137-145); Total Bilirubin 0.8 mg/dL (0.2-1.3); Total Protein 7.3 g/dL (6.3-8.2)
[2022-02-18 12:17] LABS: INR 0.9 (<1.2); Partial Thromboplastin Time 24.3 sec (22.0-30.0); Prothrombin Time 10.3 sec (9.0-12.0)
[2022-02-18] MEDS ORDERED: NALOXONE 0.4 MG/ML 1 ML VIAL IV PRN (13:35)
[2022-02-18] MEDS ORDERED: ACETAMINOPHEN TAB 325 MG TAB PO PRN (13:35)
[2022-02-18] MEDS ORDERED: ASPIRIN 81 MG PO STA (13:38)
[2022-02-18] MEDS ORDERED: PANTOPRAZOLE 40 MG/10 ML VIAL IV SCH (13:45)
[2022-02-18] MEDS ORDERED: ALPRAZolam 0.25 MG TAB PO PRN (16:55)
[2022-02-18] MEDS ORDERED: traMADol 50 MG TAB PO PRN (16:55)
--- NOTE | 2022-02-18 18:44 | P.HPIM ---
History of Present Illness H&P Date: 02/18/22 Patient is a 76-year-old female who presented to [facility] emergency room with a chief complaint of chest pain She was evaluated in the emergency room vital examination on presentation revealed a temperature of 98 pulse 70 respiration 20 blood pressure 148/66 pulse ox 99% on room air Laboratory data revealed a white blood count of 10.5 hemoglobin 12.7 platelet count 206 sodium 138 potassium 3.9 chloride 102 CO2 25 BUN 16 creatinine 0.65 troponin level was less than 0.012 Testing in the emergency room revealed chest x-ray done in the emergency room revealed no acute pulmonary process, there was evidence of COPD and evidence of any new 8 mm nodule in the right upper lobe, EKG revealed sinus bradycardia and minimal ST depression. Patient was admitted to medical floor for further evaluation and treatment, cardiology consultation was requested Past medical history is significant for history of cardiac arrhythmia was history of cardiac ablation at [facility] many years ago, underlying history of osteoarthritis, underlying history of hypertension , underlying history of rheumatoid arthritis, underlying history of sleep disturbance Past Medical History Past Medical History: GERD/Reflux, Hyperlipidemia, Hypertension, Rheumatoid Arthritis (RA) Additional Past Medical History / Comment(s): Pt states she has something wrong with her aorta but isn't sure what, anemia, MODERATE AORTIC STENOSIS History of Any Multi-Drug Resistant Organisms: None Reported Past Surgical History: Appendectomy, Breast Surgery, Cardiac Ablation, Cholecystectomy, Heart Catheterization, Hysterectomy Additional Past Surgical History / Comment(s): abliation, breast reducion, heart cath Past Anesthesia/Blood Transfusion Reactions: Postoperative Nausea & Vomiting (PONV) Past Psychological History: No Psychological Hx Reported Smoking Status: Never smoker Past Alcohol Use History: Occasional Additional Past Alcohol Use History / Comment(s): quit smoking 30 yrs ago, smoked for 20 yrs, 1/2 PPD Past Drug Use History: None Reported - Past Family History Mother Family Medical History: No Reported History Brother(s) Family Medical History: Diabetes Mellitus, Rheumatoid Arthritis (RA) Sister(s) Family Medical History: Rheumatoid Arthritis (RA) Medications and Allergies Home Medications Medication Instructions Recorded Confirmed Type Atenolol [Tenormin] 25 mg PO BID 12/23/13 02/18/22 History Folic Acid 1 mg PO DAILY 12/23/13 02/18/22 History amLODIPine BESYLATE [Norvasc] 5 mg PO BID 12/23/13 02/18/22 History metHOTREXate sodium [Methotrexate] 15 mg PO TH 12/23/13 02/18/22 History Celecoxib [CeleBREX] 200 mg PO DAILY 05/10/16 02/18/22 History Atorvastatin Calcium [Lipitor] 40 mg PO DAILY 01/21/20 02/18/22 History traMADol HCL 50 mg PO TID PRN 01/21/20 02/18/22 History ALPRAZolam [Xanax] 0.25 mg PO BID PRN 09/08/21 02/18/22 History Ascorbic Acid [Vitamin C] 500 mg PO DAILY 09/08/21 02/18/22 History Cholecalciferol [Vitamin D3 (25 50 mcg PO DAILY 09/08/21 02/18/22 History Mcg = 1000 Iu)] Melatonin [Melatonin ER] 10 mg PO HS 09/08/21 02/18/22 History Pantoprazole Sodium [Protonix] 40 mg PO DAILY 09/08/21 02/18/22 History Zinc 50 mg PO DAILY 09/08/21 02/18/22 History hydroCHLOROthiazide [Hydrodiuril] 25 mg PO DAILY 09/08/21 02/18/22 History Multivitamins, Thera [Multivitamin 1 tab PO DAILY 02/18/22 02/18/22 History (formulary)] Allergies Allergy/AdvReac Type Severity Reaction Status Date / Time Iodine and Iodide Containing Allergy Rash/Hives Verified 02/18/22 13:47 Produc on entire body shellfish derived Allergy Rash/Hives Verified 02/18/22 13:47 on entire body Physical Exam Vitals: Vital Signs Temp Pulse Pulse Resp BP BP Pulse Ox 02/18/22 16:31 97.3 F L 64 17 122/64 98 02/18/22 15:00 97.8 F 83 18 128/67 96 02/18/22 14:36 98.1 F 02/18/22 13:38 57 L 18 153/99 96 02/18/22 11:01 98 F 70 20 148/66 99 Intake and Output 02/18/22 02/18/22 02/18/22 06:59 14:59 22:59 Other: Weight 68.039 kg 68.039 kg In general patient is alert and oriented x 3 in no distress HEENT head normocephalic and atraumatic Neck is supple no JVD no goiter no lymphadenopathy no carotid bruit Chest examination is clear to auscultation no crackles no wheezing Cardiac exam reveals regular heart sounds S1 and S2 no gallops no murmurs Abdomen is soft nontender no organomegaly with normal bowel sounds Extremity exam reveals no edema no cyanosis or clubbing Neurological examination reveals no gross focal deficits Results CBC & Chem 7: 02/18/22 11:50 02/18/22 11:50 Labs: Abnormal Lab Results - Last 24 Hours (Table) 02/18/22 Range/Units 11:50 Alkaline Phosphatase 134 H (38-126) U/L Thrombosis Risk Factor Assmnt - Choose All That Apply Each Risk Factor Represents 3 Points: Age 75 years or older Thrombosis Risk Factor Assessment Total Risk Factor Score: 3 Thrombosis Risk Factor Assessment Level: Moderate Risk Assessment and Plan Plan: Episode of chest pain, patient is admitted to telemetry floor serial EKG and cardiac enzymes requested cardiology consultation requested Chest x-ray revealing evidence of COPD and 8 mm pulmonary nodule Will consult pulmonary Underlying history of hypertension Previous history of cardiac arrhythmia was history of cardiac ablation many years ago Underlying history of sleep disturbance Underlying history of rheumatoid arthritis Underlying history of osteoarthritis At this time patient was seen and examined Home medications reviewed and reordered Pulmonary consultation and cardiology consultation requested Will follow closely during this admission
[2022-02-18] MEDS ORDERED: MELATONIN 5 MG TABLET PO SCH (21:00)
[2022-02-18] MEDS: amLODIPine 5 MG TAB PO SCH (21:24)
[2022-02-18] MEDS: atenoloL 25 MG TAB PO SCH (21:25)
--- NOTE | 2022-02-19 07:01 | P.CNPUL ---
History of Present Illness Consult date: 02/19/22 Requesting physician: Jonathan Dominguez Reason for consult: abnormal CXR/CT Chief complaint: Solitary pulmonary nodule. History of present illness: Pulmonary/critical care consultation dated 02/19/2022 76-year-old female who presented to the emergency department on February 18, complaining of chest pain. The pain was underneath her right breast, and also on the left side of her chest. The pain started after drinking coffee, and eating a small cookie. She denies any shortness of breath, and there was no nausea, vomiting, or diaphoresis. She thought it might be gas, and she did take a Tums, with some relief. She was told by her 911 emergency services dispatcher to come immediately to the emergency room, should she have chest pain. She does have a history of hypertension, and GERD. The patient did smoke many years back, for about 15 or 16 years. She denies any lung issues. I was consulted, because a small nodule was found on chest x-ray, and the right upper lobe, measuring 8 mm. I told the patient, that we would work this up as an outpatient, as it was not causing her any issues or difficulty. CBC is normal. Coagulation studies are normal. Electrolyte profile is normal. Troponins were negative 3. Review of Systems REVIEW OF SYSTEMS: CONSTITUTIONAL: [Negative.] NEUROLOGIC: [ Negative.] HEENT: [ Negative.] CARDIAC: Chest pain. PULMONARY: [Negative.] GI: [Negative.] : [Negative.] RHEUMATOLOGIC: [ Negative.] IMMUNOLOGIC: [ Negative.] ENDOCRINE: [Negative. ] DERMATOLOGIC: [Negative.] Past Medical History Past Medical History: GERD/Reflux, Hyperlipidemia, Hypertension, Rheumatoid Arthritis (RA) Additional Past Medical History / Comment(s): Pt states she has something wrong with her aorta but isn't sure what, anemia, MODERATE AORTIC STENOSIS History of Any Multi-Drug Resistant Organisms: None Reported Past Surgical History: Appendectomy, Breast Surgery, Cardiac Ablation, Cholecystectomy, Heart Catheterization, Hysterectomy Additional Past Surgical History / Comment(s): abliation, breast reducion, heart cath Past Anesthesia/Blood Transfusion Reactions: Postoperative Nausea & Vomiting (PONV) Past Psychological History: No Psychological Hx Reported Smoking Status: Never smoker Past Alcohol Use History: Occasional Additional Past Alcohol Use History / Comment(s): quit smoking 30 yrs ago, smoked for 20 yrs, 1/2 PPD Past Drug Use History: None Reported - Past Family History Mother Family Medical History: No Reported History Brother(s) Family Medical History: Diabetes Mellitus, Rheumatoid Arthritis (RA) Sister(s) Family Medical History: Rheumatoid Arthritis (RA) Medications and Allergies Home Medications Medication Instructions Recorded Confirmed Type Atenolol [Tenormin] 25 mg PO BID 12/23/13 02/18/22 History Folic Acid 1 mg PO DAILY 12/23/13 02/18/22 History amLODIPine BESYLATE [Norvasc] 5 mg PO BID 12/23/13 02/18/22 History metHOTREXate sodium [Methotrexate] 15 mg PO TH 12/23/13 02/18/22 History Celecoxib [CeleBREX] 200 mg PO DAILY 05/10/16 02/18/22 History Atorvastatin Calcium [Lipitor] 40 mg PO DAILY 01/21/20 02/18/22 History traMADol HCL 50 mg PO TID PRN 01/21/20 02/18/22 History ALPRAZolam [Xanax] 0.25 mg PO BID PRN 09/08/21 02/18/22 History Ascorbic Acid [Vitamin C] 500 mg PO DAILY 09/08/21 02/18/22 History Cholecalciferol [Vitamin D3 (25 50 mcg PO DAILY 09/08/21 02/18/22 History Mcg = 1000 Iu)] Melatonin [Melatonin ER] 10 mg PO HS 09/08/21 02/18/22 History Pantoprazole Sodium [Protonix] 40 mg PO DAILY 09/08/21 02/18/22 History Zinc 50 mg PO DAILY 09/08/21 02/18/22 History hydroCHLOROthiazide [Hydrodiuril] 25 mg PO DAILY 09/08/21 02/18/22 History Multivitamins, Thera [Multivitamin 1 tab PO DAILY 02/18/22 02/18/22 History (formulary)] Allergies Allergy/AdvReac Type Severity Reaction Status Date / Time Iodine and Iodide Containing Allergy Rash/Hives Verified 02/18/22 13:47 Produc on entire body shellfish derived Allergy Rash/Hives Verified 02/18/22 13:47 on entire body Physical Exam Osteopathic Statement: *. No significant issues noted on an osteopathic structural exam other than those noted in the History and Physical/Consult. Vitals: Vital Signs Temp Pulse Pulse Resp BP BP Pulse Ox 02/19/22 03:48 98.1 F 67 16 106/60 97 02/18/22 19:58 97.9 F 66 18 101/61 95 02/18/22 16:31 97.3 F L 64 17 122/64 98 02/18/22 15:00 97.8 F 83 18 128/67 96 02/18/22 14:36 98.1 F 02/18/22 13:38 57 L 18 153/99 96 02/18/22 11:01 98 F 70 20 148/66 99 Intake and Output 02/18/22 02/18/22 02/19/22 14:59 22:59 06:59 Intake Total 360 Balance 360 Intake: Oral 360 Other: # Voids 1 1 Weight 68.039 kg 68.039 kg No acute distress, oriented 3. Room air saturation is 97%. HEENT examination is grossly unremarkable. Neck supple. Full range of motion. No adenopathy thyromegaly or neck vein distention. Cardiovascular examination reveals regular rhythm rate. S1-S2 normal. No S3 or S4. No discernible murmur noted. Heart rate 67 bpm. Lungs reveal clear breath sounds. Breath sounds are equal bilaterally. No adventitious lung sounds including wheezes rhonchi or crackles. Abdomen soft bowel sounds are heard. No masses or tenderness. Extremities are intact. No cyanosis clubbing or edema. Skin is without rash or lesion. Neurologic examination is brief but nonfocal. Results - Laboratory Findings CBC and BMP: 02/18/22 11:50 02/18/22 11:50 PT/INR, D-dimer PT 10.3 sec (9.0-12.0) 02/18/22 11:50 INR 0.9 (<1.2) 02/18/22 11:50 Abnormal lab findings: Abnormal Labs 02/18/22 11:50 Alkaline Phosphatase 134 H - Diagnostic Findings Chest x-ray: image reviewed Assessment and Plan Assessment: Chest pain, being evaluated by cardiology. 8 mm solitary pulmonary nodule, right upper lobe, which will be evaluated as an outpatient. Remote history of tobacco use. History of hypertension. History of hyperlipidemia. History of GERD. History of rheumatoid arthritis. History of aortic stenosis. Plan: Plan dated 02/09/2022. The patient was admitted with chest pain. She be evaluated by cardiology. Chest x-ray showed a small nodule right upper lobe, extreme apex. This will be evaluated as an outpatient. The patient should see me when she is discharged from the hospital. She does have a 15 year history of tobacco use, remotely. She denies any pulmonary complaints such as shortness of breath, cough, wheezing, chest tightness, phlegm production, or hemoptysis. Time with Patient: Greater than 30
[2022-02-19] MEDS ORDERED: PANTOPRAZOLE 40 MG TABLET PO SCH (07:30)
[2022-02-19 08:18] VITALS: BP 121/60; PULSE 65; RESP 18; TEMP 97.8
--- NOTE | 2022-02-19 08:59 | P.CRDCN ---
History of Present Illness Consult date: 02/19/22 Requesting physician: Jonathan Dominguez Reason for Consult (text): chest pain Chief complaint: chest pain History of present illness: This is a pleasant 76-year-old female patient who follows in the office Dr. Morales. She has a history of moderate aortic stenosis, SVT with previous ablation, hypertension, hyperlipidemia, nonobstructive CAD, rheumatoid arthritis and remote smoking history. Most recent testing in the office included an echocardiogram from July of this year which showed a normal LV systolic function with an ejection fraction of 55%, mild to moderate aortic regurgitation, moderate aortic stenosis with a mean gradient of 29 mmHg and mild mitral regurgitation. Lexiscan MPI done in November of this year showed no evidence of stress-induced ischemia. She presented to the emergency department with complaints of discomfort under her right breast radiated to the epigastric area, occurred at rest, lasted a couple of minutes and was relieved with Tums. EKG on admission shows sinus mechanism with no evidence of ischemia. Troponins have been negative 3. Chest x-ray did show an 8 mm solitary pulmonary nodule in the right upper lobe and she's been seen and evaluated by pulmonary with plans for further evaluation as an outpatient. Upon examination she is resting comfortably in bed. She's had no recurrence of the discomfort. She does complain of mild dyspnea on exertion that is stable. She is not as active as she should be but her activity level is stable. She denies any edema, orthopnea or PND. Denies any palpitations, dizziness or lightheadedness. She's had no syncope. Denies any nausea, vomiting, reflux or heartburn. She's had no diaphoresis. Past Medical History Past Medical History: GERD/Reflux, Hyperlipidemia, Hypertension, Rheumatoid Arthritis (RA) Additional Past Medical History / Comment(s): Pt states she has something wrong with her aorta but isn't sure what, anemia, MODERATE AORTIC STENOSIS History of Any Multi-Drug Resistant Organisms: None Reported Past Surgical History: Appendectomy, Breast Surgery, Cardiac Ablation, Cho lecystectomy, Heart Catheterization, Hysterectomy Additional Past Surgical History / Comment(s): abliation, breast reducion, heart cath Past Anesthesia/Blood Transfusion Reactions: Postoperative Nausea & Vomiting (PONV) Past Psychological History: No Psychological Hx Reported Smoking Status: Never smoker Past Alcohol Use History: Occasional Additional Past Alcohol Use History / Comment(s): quit smoking 30 yrs ago, smoked for 20 yrs, 1/2 PPD Past Drug Use History: None Reported - Past Family History Mother Family Medical History: No Reported History Brother(s) Family Medical History: Diabetes Mellitus, Rheumatoid Arthritis (RA) Sister(s) Family Medical History: Rheumatoid Arthritis (RA) Medications and Allergies Home Medications Medication Instructions Recorded Confirmed Type Atenolol [Tenormin] 25 mg PO BID 12/23/13 02/18/22 History Folic Acid 1 mg PO DAILY 12/23/13 02/18/22 History amLODIPine BESYLATE [Norvasc] 5 mg PO BID 12/23/13 02/18/22 History metHOTREXate sodium [Methotrexate] 15 mg PO TH 12/23/13 02/18/22 History Celecoxib [CeleBREX] 200 mg PO DAILY 05/10/16 02/18/22 History Atorvastatin Calcium [Lipitor] 40 mg PO DAILY 01/21/20 02/18/22 History traMADol HCL 50 mg PO TID PRN 01/21/20 02/18/22 History ALPRAZolam [Xanax] 0.25 mg PO BID PRN 09/08/21 02/18/22 History Ascorbic Acid [Vitamin C] 500 mg PO DAILY 09/08/21 02/18/22 History Cholecalciferol [Vitamin D3 (25 50 mcg PO DAILY 09/08/21 02/18/22 History Mcg = 1000 Iu)] Melatonin [Melatonin ER] 10 mg PO HS 09/08/21 02/18/22 History Pantoprazole Sodium [Protonix] 40 mg PO DAILY 09/08/21 02/18/22 History Zinc 50 mg PO DAILY 09/08/21 02/18/22 History hydroCHLOROthiazide [Hydrodiuril] 25 mg PO DAILY 09/08/21 02/18/22 History Multivitamins, Thera [Multivitamin 1 tab PO DAILY 02/18/22 02/18/22 History (formulary)] Allergies Allergy/AdvReac Type Severity Reaction Status Date / Time Iodine and Iodide Containing Allergy Rash/Hives Verified 02/18/22 13:47 Produc on entire body shellfish derived Allergy Rash/Hives Verified 02/18/22 13:47 on entire body Physical Exam Vitals: Vital Signs Temp Pulse Pulse Resp BP BP Pulse Ox 02/19/22 07:00 97.8 F 65 18 121/60 93 L 02/19/22 03:48 98.1 F 67 16 106/60 97 02/18/22 19:58 97.9 F 66 18 101/61 95 02/18/22 16:31 97.3 F L 64 17 122/64 98 02/18/22 15:00 97.8 F 83 18 128/67 96 02/18/22 14:36 98.1 F 02/18/22 13:38 57 L 18 153/99 96 02/18/22 11:01 98 F 70 20 148/66 99 Intake and Output 02/18/22 02/19/22 02/19/22 22:59 06:59 14:59 Intake Total 360 Balance 360 Intake: Oral 360 Other: # Voids 1 1 Weight 68.039 kg PHYSICAL EXAMINATION: This is a 76-year-old female in no apparent distress at the time of my examination. HEENT: Head is atraumatic, normocephalic. Pupils are equal, round. Sclerae anicteric. Conjunctivae are clear. Mucous membranes of the mouth are moist. Neck is supple. There is no elevated jugular venous pressure. No carotid bruit is heard. CHEST EXAMINATION: Clear to auscultation bilaterally. No wheezes rales or rhonchi. Respirations even and nonlabored. HEART EXAMINATION: Heart regular, positive S1 and S2. No S3. No S4. Grade 3/6 systolic ejection murmur at the base with radiation to the neck. ABDOMEN: Soft, nontender. Bowel sounds are heard. No organomegaly noted. EXTREMITIES: 2+ peripheral pulses with no evidence of peripheral edema and no calf tenderness noted. NEUROLOGIC EXAMINATION: Patient is awake, alert and oriented x3. Results 02/18/22 11:50 02/18/22 11:50 Cardiac Enzymes 02/18/22 02/18/22 02/18/22 Range/Units 11:50 11:50 14:25 AST 26 (14-36) U/L Troponin I <0.012 <0.012 (0.000-0.034) ng/mL 02/18/22 Range/Units 17:35 AST (14-36) U/L Troponin I <0.012 (0.000-0.034) ng/mL Coagulation 02/18/22 Range/Units 11:50 PT 10.3 (9.0-12.0) sec APTT 24.3 (22.0-30.0) sec CBC 02/18/22 Range/Units 11:50 WBC 10.5 (3.8-10.6) k/uL RBC 3.87 (3.80-5.40) m/uL Hgb 12.7 (11.4-16.0) gm/dL Hct 36.9 (34.0-46.0) % Plt Count 206 (150-450) k/uL Comprehensive Metabolic Panel 02/18/22 Range/Units 11:50 Sodium 138 (137-145) mmol/L Potassium 3.9 (3.5-5.1) mmol/L Chloride 102 (98-107) mmol/L Carbon Dioxide 25 (22-30) mmol/L BUN 16 (7-17) mg/dL Creatinine 0.65 (0.52-1.04) mg/dL Glucose 98 (74-99) mg/dL Calcium 9.6 (8.4-10.2) mg/dL AST 26 (14-36) U/L ALT 17 (4-34) U/L Alkaline Phosphatase 134 H (38-126) U/L Total Protein 7.3 (6.3-8.2) g/dL Albumin 4.7 (3.5-5.0) g/dL Current Medications Generic Name Dose Route Start Last Admin Trade Name Freq PRN Reason Stop Dose Admin Acetaminophen 650 mg 02/18/22 13:35 Acetaminophen Tab 325 Mg Tab PO Q6HR PRN Mild Pain or Fever > 100.5 Alprazolam 0.25 mg 02/18/22 16:55 Alprazolam 0.25 Mg Tab PO BID PRN Anxiety Amlodipine Besylate 5 mg 02/18/22 21:00 02/18/22 21:24 Amlodipine 5 Mg Tab PO 5 mg BID FADIA Administration Ascorbic Acid 500 mg 02/19/22 09:00 Ascorbic Acid 500 Mg Tab PO DAILY [facility] Atenolol 25 mg 02/18/22 21:00 02/18/22 21:25 Atenolol 25 Mg Tab PO 25 mg BID FADIA Administration Atorvastatin Calcium 40 mg 02/19/22 09:00 Atorvastatin 40 Mg Tab PO DAILY [facility] Cholecalciferol 50 mcg 02/19/22 09:00 Cholecalciferol 25 Mcg (1000 Iu) Tablet PO DAILY [facility] Folic Acid 1 mg 02/19/22 09:00 Folic Acid 1 Mg Tab PO DAILY [facility] Hydrochlorothiazide 25 mg 02/19/22 09:00 Hydrochlorothiazide 25 Mg Tab PO DAILY FADIA Melatonin 10 mg 02/18/22 21:00 02/18/22 21:25 Melatonin 5 Mg Tablet PO 10 mg HS FADIA Administration Meloxicam 7.5 mg 02/19/22 09:00 Meloxicam 7.5 Mg Tab PO DAILY [facility] Methotrexate 15 mg 02/20/22 09:00 Methotrexate Sodium 2.5 Mg Tab PO TH [facility] Multivitamins 1 each 02/19/22 09:00 Multivitamins, Thera 1 Each Tab PO DAILY [facility] Naloxone HCl 0.2 mg 02/18/22 13:35 Naloxone 0.4 Mg/Ml 1 Ml Vial IV Q2M PRN Opioid Reversal Pantoprazole Sodium 40 mg 02/19/22 07:30 02/19/22 06:03 Pantoprazole 40 Mg Tablet PO 40 mg DAILY@0730 FADIA Administration Tramadol HCl 50 mg 02/18/22 16:55 Tramadol 50 Mg Tab PO TID PRN Pain Zinc Sulfate 220 mg 02/19/22 09:00 Zinc Sulfate 220 Mg Cap PO DAILY [facility]ADIA Intake and Output 02/18/22 02/19/22 02/19/22 22:59 06:59 14:59 Intake Total 360 Balance 360 Intake: Oral 360 Other: # Voids 1 1 Weight 68.039 kg 02/18/22 11:50 02/18/22 11:50 EKG Interpretations (text) Sinus rhythm Assessment and Plan Assessment: #1 symptoms of right sided chest discomfort, not consistent with acute coronary syndrome, troponins negative 3, EKG shows no changes indicative of ischemia and patient had a nonischemic MPI done in November of this year. #2 moderate aortic stenosis #3 nonobstructive CAD #4 hypertension #5 hyperlipidemia #6 rheumatoid arthritis Plan: From cardiology's perspective and acute coronary event has been ruled out. Patient had a nonischemic MPI in November. She's had no recurrence of chest discomfort. We will repeat the echocardiogram. If there is no significant change from previous she may be discharged home and follow-up in the office with Dr. SHABNAM Morales. DEPUTY BAILIFF note has been reviewed, I agree with a documented findings and plan of care. Patient was seen and examined.
[2022-02-19] MEDS ORDERED: MELOXICAM 7.5 MG TAB PO SCH (09:00)
[2022-02-19] MEDS ORDERED: hydroCHLOROthiazide 25 MG TAB PO SCH (09:00)
[2022-02-19] MEDS ORDERED: MULTIVITAMINS, THERA 1 EACH TAB PO SCH (09:00)
[2022-02-19] MEDS ORDERED: ATORVASTATIN 40 MG TAB PO SCH (09:00)
[2022-02-19] MEDS ORDERED: FOLIC ACID 1 MG TAB PO SCH (09:00)
[2022-02-19] MEDS ORDERED: CHOLECALCIFEROL 25 MCG (1000 IU) TABLET PO SCH (09:00)
[2022-02-19] MEDS ORDERED: ZINC SULFATE 220 MG CAP PO SCH (09:00)
[2022-02-19] MEDS ORDERED: ASCORBIC ACID 500 MG TAB PO SCH (09:00)
[2022-02-19] MEDS: amLODIPine 5 MG TAB PO SCH (10:05)
[2022-02-19] MEDS: atenoloL 25 MG TAB PO SCH (10:05)
--- NOTE | 2022-02-19 12:18 | CA ---
Transthoracic Echo Report Name: Luba Roldan Age: 76 Gender: F : 1945 Exam Date: 02/19/2022 09:41 Exam Location: [facility] Ht (in): 65 Wt (lb): 150 Ordering Physician: Juanis Gimenez Attending/Referring Phys: [id number] Cardiac Technician Tyesha Faria RDCS Procedure CPT: Indications: aortic stenosis Cardiac Hx: Technical Quality: Fair Contrast 1: Total Dose (mL): Contrast 2: Total Dose (mL): MEASUREMENTS (Male / Female) Normal Values 2D ECHO LV Diastolic Diameter PLAX 3.5 cm 4.2 - 5.9 / 3.9 - 5.3 cm LV Systolic Diameter PLAX 1.5 cm IVS Diastolic Thickness 1.1 cm 0.6 - 1.0 / 0.6 - 0.9 cm LVPW Diastolic Thickness 1.2 cm 0.6 - 1.0 / 0.6 - 0.9 cm LV Relative Wall Thickness 0.7 RV Internal Dim ED PLAX 3.0 cm LVOT Diameter 1.8 cm LA Volume 39.1 cm??? 18 - 58 / 22 - 52 cm??? M-MODE Aortic Root Diameter MM 1.9 cm LA Systolic Diameter MM 2.7 cm LA Ao Ratio MM 1.5 AV Cusp Separation MM 0.8 cm DOPPLER AV Peak Velocity 395.0 cm/s AV Peak Gradient 62.4 mmHg AV Mean Velocity 282.0 cm/s AV Mean Gradient 35.9 mmHg AV Velocity Time Integral 93.4 cm AI Peak Velocity 376.9 cm/s AI Peak Gradient 56.8 mmHg AI Pressure Half Time 494.1 ms LVOT Peak Velocity 89.1 cm/s LVOT Peak Gradient 3.2 mmHg LVOT Velocity Time Integral 23.5 cm LVOT Stroke Volume 60.8 cm??? LVOT Stroke Volume Index 34.7 ml/m??? LVOT Cardiac Index 2121.7 cm???/min???m??? AV Area Cont Eq vti 0.7 cm??? AV Area Cont Eq pk 0.6 cm??? MV Area PHT 1.6 cm??? Mitral E Point Velocity 88.2 cm/s Mitral A Point Velocity 141.5 cm/s Mitral E to A Ratio 0.6 MV Deceleration Time 469.1 ms MV E' Velocity 5.9 cm/s Mitral E to MV E' Ratio 15.0 TR Peak Velocity 272.6 cm/s TR Peak Gradient 29.7 mmHg Right Ventricular Systolic Press 33.6 mmHg FINDINGS Left Ventricle Mildly increased left ventricular wall thickness. Normal left ventricular systolic function with no obvious regional wall motion abnormalities. Left ventricular ejection fraction is estimated at 55-60 %. Right Ventricle Normal right ventricular size and function. Right ventricular systolic pressure within normal limits. Right Atrium Normal right atrial size. Left Atrium Normal left atrial size. Mitral Valve Structurally normal mitral valve. Mild thickening/calcification of the anterior mitral valve leaflet. Moderate mitral annular calcification. Mild central mitral regurgitation. Aortic Valve Diffuse thickening of the aortic valve cusps with reduced excursion. Moderate- to-severe aortic stenosis with a peak gradient of 62 mmHg and a mean gradient of 36 mmHg. AV Area Cont Eq vti 0.7 cm???. Mild aortic regurgitation. Tricuspid Valve Structurally normal tricuspid valve. Mild tricuspid regurgitation. Pulmonic Valve Pulmonic valve not well visualized. Pericardium No pericardial effusion. Aorta Normal size aortic root and proximal ascending aorta. CONCLUSIONS 1. Normal left ventricle size and systolic function 2. Mild mitral and tricuspid regurgitation 3. Moderate to severe aortic stenosis with mild aortic regurgitation Previewed by: Dr. Lorri Delgado MD (Electronically Signed) Final Date: 19 February 2022 12:17
[2022-02-20] MEDS ORDERED: metHOTREXate sodium 2.5 MG TAB PO SCH (09:00)
== END 2022-02-19 14:33 | disposition home or self-care (01) ==
LOC: EC 10:49 → 6NMEDSUR 13:16
PROVIDERS: ADMIT Internal Medicine; ATTEND Internal Medicine
DX: R07.89 Other chest pain (principal); I10 Essential (primary) hypertension; K21.9 Gastro-esophageal reflux disease without esophagitis; E78.5 Hyperlipidemia, unspecified; M06.9 Rheumatoid arthritis, unspecified; D64.9 Anemia, unspecified; M85.812 Other specified disorders of bone density and structure, left shoulder; I70.0 Atherosclerosis of aorta; J44.9 Chronic obstructive pulmonary disease, unspecified; R91.1 Solitary pulmonary nodule; M85.811 Other specified disorders of bone density and structure, right shoulder; I25.10 Atherosclerotic heart disease of native coronary artery without angina pectoris; I08.3 Combined rheumatic disorders of mitral, aortic and tricuspid valves; Z90.710 Acquired absence of both cervix and uterus; Z79.899 Other long term (current) drug therapy; Z79.1 Long term (current) use of non-steroidal anti-inflammatories (NSAID); Z90.49 Acquired absence of other specified parts of digestive tract; Z83.3 Family history of diabetes mellitus; Z82.61 Family history of arthritis; Z87.891 Personal history of nicotine dependence
CPT/HCPCS: 96361; 96374; 99285; 36415; 93005; 93306; 80053; 83735; 84484; 85025; 85610; 85730; 71046; G0378 ×2; C9113

== ENCOUNTER → 2022-03-12 | Outpatient (CLI) | payer MEDICARE | END | disposition home or self-care (01) | LOC: LABWHC1 11:21 | PROVIDERS: ATTEND Internal Medicine Rheumatology | DX: M06.9 Rheumatoid arthritis, unspecified (principal) | CPT/HCPCS: 36415; 86140 ==

== ENCOUNTER → 2022-04-17 | Outpatient (CLI) | payer MEDICARE ==
[2022-04-17 08:42] LABS: African American GFR (CKD) >90 (>60 ml/min/1.73 sqM); Blood Urea Nitrogen 16 mg/dL (7-17); Non-African American GFR(CKD) 84 (>60 ml/min/1.73 sqM)
--- NOTE | 2022-04-17 10:14 | CT ---
EXAMINATION TYPE: CT chest w con DATE OF EXAM: 04/17/2022 COMPARISON: CT chest July 10, 2016. Two-view chest x-ray February 18, 2022 HISTORY: Solitary pulmonary nodule, abnormal chest x-ray. CT DLP: 493 mGycm. Automated Exposure Control for Dose Reduction was Utilized. TECHNIQUE: CT scan of the thorax is performed following with IV Contrast, patient injected with 100 ml mL of Isovue 300. FINDINGS: LUNGS: Mild to moderate underlying emphysematous change is redemonstrated. There is 5 x 3 mm posterio r right lower lobe nodule axial image 42. There is no greater than 5 mm pulmonary nodules or masses s een bilaterally with particular attention to the right upper lung area of concern on recent x-ray. Th ere is focal vascular calcification in the right brachiocephalic artery extending into the subclavian artery coronal image 63 likely mimicking a subcentimeter nodule on x-ray. No pleural effusion or pne umothorax is seen. Tracheobronchial tree is patent. MEDIASTINUM: There are no greater than 1 cm hilar or mediastinal lymph nodes. No cardiomegaly or pe ricardial effusion is seen. Coronary calcification is present which is noted marker for underlying c oronary artery disease. Some calcification and thickening at level of the mitral and aortic valves is present. Approximate 9 mm right thyroid nodule coronal image 56 is present. Advise thyroid ultrasoun d follow-up to further evaluate if this is not known finding. OTHER: Cholecystectomy clips are partially imaged. Significant narrowing of celiac artery origin sagi ttal images 71 through 73. Correlate for celiac artery compression syndrome. IMPRESSION: [id number] emphysematous change without significant greater than 6 mm pulmonary nod ule. Consider follow-up based on Fleischner Society recommendations. Optional CT at 12 months.
== END | disposition home or self-care (01) ==
LOC: RADCTMAIN 08:02
PROVIDERS: ATTEND Internal Medicine Critical Care Medicine
DX: R91.1 Solitary pulmonary nodule (principal); J43.9 Emphysema, unspecified
CPT/HCPCS: 82565; 84520; 71260; 36415; Q9967

== ENCOUNTER → 2022-10-10 | Outpatient (CLI) | payer MEDICARE ==
--- NOTE | 2022-10-13 08:28 | MM ---
Reason for Exam: Screening (asymptomatic). Last screening mammogram was performed 12 month(s) ago. Patient History: Menarche at age 16. First Full-Term at age 19. Right ovary removed at age 46. Postmenopausal. 1993, Bilateral Reduction. Risk Values: Reina 5 year model risk: 1.2%. NCI Lifetime model risk: 2.5%. Prior Study Comparison: 10/28/2018 Bilateral Screening Mammogram, [facility]. 04/27/2020 Bilateral Screening Mammogram, [facility]. 10/04/2021 Bilateral MG 3D screening mammo w/cad, [facility]. Tissue Density: The breast tissue is heterogeneously dense. This may lower the sensitivity of mammography. Findings: Analyzed By CAD. There is no suspicious group of microcalcifications or new suspicious mass in either breast. Overall Assessment: Benign, BI-RAD 2 Management: Screening Mammogram of both breasts in 1 year. . Patient should continue monthly self-breast exams. A clinical breast exam by your physician is recommended on an annual basis. This exam should not preclude additional follow-up of suspicious palpable abnormalities. Note on Reina scores and lifetime risk: 1. A Reina score greater than 3% is considered moderate risk. If this is the case, consider specialist referral to assess eligibility for a risk reducing agent. 2. If overall lifetime risk for the development of breast cancer is 20% or higher, the patient may qualify for future screening with alternating mammogram and breast MRI. Electronically signed and approved by: Abimael Lang M.D. Radiologis
== END | disposition home or self-care (01) ==
LOC: RADMAMWWP 09:14
PROVIDERS: ATTEND Internal Medicine
DX: Z12.31 Encounter for screening mammogram for malignant neoplasm of breast (principal); Z78.0 Asymptomatic menopausal state
CPT/HCPCS: 77063; 77067

== ENCOUNTER → 2023-10-12 | Outpatient (CLI) | payer MEDICARE ==
--- NOTE | 2023-10-15 13:35 | MM ---
Reason for Exam: Screening (asymptomatic). Last screening mammogram was performed 12 month(s) ago. Patient History: Menarche at age 16. First Full-Term at age 19. Right ovary removed at age 46. Postmenopausal. 1993, Bilateral Reduction. Risk Values: Reina 5 year model risk: 1.2%. NCI Lifetime model risk: 2.4%. Prior Study Comparison: 04/27/2020 Bilateral Screening Mammogram, [facility]. 10/04/2021 Bilateral MG 3D screening mammo w/cad, [facility]. 10/10/2022 Bilateral MG 3D screening mammo w/cad, [facility]. Tissue Density: There are scattered areas of fibroglandular density. Findings: Analyzed By CAD. Right breast: There is no suspicious group of microcalcifications or new suspicious mass. Benign-appearing calcifications right breast. Left breast: There is no suspicious group of microcalcifications or new suspicious mass. Benign-appearing calcifications left breast. Overall Assessment: Benign, BI-RAD 2 Management: Screening Mammogram of both breasts in [address] [facility] will attempt to contact patient to return for supplemental views and ultrasound if indicated. Patient should continue monthly self-breast exams. A clinical breast exam by your physician is recommended on an annual basis. This exam should not preclude additional follow-up of suspicious palpable abnormalities. Note on Reina scores and lifetime risk: 1. A Reina score greater than 3% is considered moderate risk. If this is the case, consider specialist referral to assess eligibility for a risk reducing agent. 2. If overall lifetime risk for the development of breast cancer is 20% or higher, the patient may qualify for future screening with alternating mammogram and breast MRI. Electronically signed and approved by: Ortega Naylor DO
== END | disposition home or self-care (01) ==
LOC: RADMAMWWP 07:18
PROVIDERS: ATTEND Internal Medicine
DX: Z12.31 Encounter for screening mammogram for malignant neoplasm of breast (principal); Z78.0 Asymptomatic menopausal state
CPT/HCPCS: 77063; 77067; 77080

== ENCOUNTER → 2024-03-23 | Outpatient (CLI) | payer MEDICARE ==
[2024-03-23 14:55] LABS: Basophils # (A) 0.05 X 10*3/uL (0.00-0.10); Basophils % (A) 0.5 %; Eosinophils # (A) 0.14 X 10*3/uL (0.04-0.35); Eosinophils % (A) 1.5 %; HCT 37.5 % (37.2-46.3); HGB 12.2 g/dL (12.0-15.0); Lymphocytes # (A) 1.83 X 10*3/uL (0.90-5.00); Lymphocytes % (A) 19.3 %; MCHC 32.5 g/dL (32.0-37.0); MCV 98.4 FL (80.0-97.0); Mean Platelet Volume 10.9 FL (9.5-12.2); Monocytes # (A) 1.08 X 10*3/uL (0.20-1.00); Monocytes % (A) 11.4 %; NRBC Per 100 WBC 0 X 10*3/uL (0.00-0.01); Neutrophils # (A) 6.34 X 10*3/uL (1.80-7.70); Platelet Count 230 X 10*3/uL (140-440); RBC 3.81 X 10*6/uL (4.10-5.20); RDW 14.1 % (11.5-14.5); WBC 9.47 X 10*3/uL (4.50-10.00)
[2024-03-23 15:18] LABS: ALT 16 U/L (8-44); AST 23 U/L (13-35); C Reactive Protein <0.30 mg/dL (0.00-0.80)
[2024-03-23 16:07] LABS: Erythrocyte Sedimentation Rate 7 mm/Hr (0-30)
== END | disposition home or self-care (01) ==
LOC: LABWHC1 10:13
PROVIDERS: ATTEND Internal Medicine Rheumatology
DX: M06.9 Rheumatoid arthritis, unspecified (principal)
CPT/HCPCS: 36415; 82565; 84450; 84460; 85025; 85652; 86140

== ENCOUNTER → 2024-06-08 | Outpatient (CLI) | payer MEDICARE ==
[2024-06-08 18:18] LABS: HCT 35.9 % (37.2-46.3); HGB 11.7 g/dL (12.0-15.0); MCH 32.3 pg (27.0-32.0); MCHC 32.6 g/dL (32.0-37.0); MCV 99.2 FL (80.0-97.0); Mean Platelet Volume 11.2 FL (9.5-12.2); NRBC Per 100 WBC 0 X 10*3/uL (0.00-0.01); Platelet Count 213 X 10*3/uL (140-440); RBC 3.62 X 10*6/uL (4.10-5.20); WBC 11.68 X 10*3/uL (4.50-10.00)
[2024-06-08 18:27] LABS: ALT 12 U/L (8-44); AST 20 U/L (13-35)
[2024-06-08 19:24] LABS: Basophils # (A) 0.11 X 10*3/uL (0.00-0.10); Basophils % (A) 0.9 %; Eosinophils # (A) 0.24 X 10*3/uL (0.04-0.35); Eosinophils % (A) 2.1 %; Lymphocytes # (A) 1.93 X 10*3/uL (0.90-5.00); Lymphocytes % (A) 16.5 %; Monocytes # (A) 1.65 X 10*3/uL (0.20-1.00); Monocytes % (A) 14.1 %; Neutrophils # (A) 7.66 X 10*3/uL (1.80-7.70); Neutrophils % (A) 65.6 %; RBC Morphology Normal (Normal)
[2024-06-08 19:37] LABS: Erythrocyte Sedimentation Rate 32 mm/Hr (0-30)
== END | disposition home or self-care (01) ==
LOC: LABWHC1 13:42
PROVIDERS: ATTEND Internal Medicine Rheumatology
DX: M06.9 Rheumatoid arthritis, unspecified (principal)
CPT/HCPCS: 36415; 82565; 84450; 84460; 85025; 85652; 86140

== ENCOUNTER → 2024-07-05 | Outpatient (CLI) | payer MEDICARE ==
--- NOTE | 2024-07-05 15:55 | XR ---
EXAMINATION TYPE: XR ankle complete RT, XR foot complete RT DATE OF EXAM: 07/05/2024 3:46 PM COMPARISON: None CLINICAL INDICATION: Female, 78 years old with history of M25.571, R22.41, M79.671; PHH, pain TECHNIQUE: XR ankle complete RT, XR foot complete RT; frontal, lateral and oblique projections. FINDINGS: There is no evidence of acute osseous pathology. No evidence of subluxation or dislocation. Kager's fat pad is intact. Mild soft tissue swelling around the ankle. No radiopaque foreign bodies are ident ified. Multifocal degeneration changes throughout the joints of the foot with osteophyte formation an d joint space narrowing. There is more moderate to severe talonavicular joint degeneration changes of hydrocephalus projecting anteriorly and lateral view. Calcaneal plantar spurring is present. There is some punched out periarticular erosions noted most pronounced on the fifth metatarsal head, the base of the second metatarsal proximal digit. IMPRESSION: 1. Mild soft tissue swelling around the ankle without evidence of acute fracture. 2. 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 Some 3. Punched-out juxta articular lesions around the joints of the foot correlate for gout. [facility], , 07/05/2024 3:52 PM
== END | disposition home or self-care (01) ==
LOC: RADXRMAIN 15:09
PROVIDERS: ATTEND Internal Medicine
DX: M19.071 Primary osteoarthritis, right ankle and foot (principal); M25.471 Effusion, right ankle

== ENCOUNTER → 2024-09-23 | Outpatient (CLI) | payer MEDICARE ==
[2024-09-23 15:49] LABS: Basophils # (A) 0.05 X 10*3/uL (0.00-0.10); Basophils % (A) 0.6 %; Eosinophils # (A) 0.22 X 10*3/uL (0.04-0.35); Eosinophils % (A) 2.7 %; HCT 35.8 % (37.2-46.3); HGB 11.3 g/dL (12.0-15.0); Lymphocytes # (A) 1.55 X 10*3/uL (0.90-5.00); Lymphocytes % (A) 19.2 %; MCH 31.6 pg (27.0-32.0); MCHC 31.6 g/dL (32.0-37.0); Monocytes # (A) 1.04 X 10*3/uL (0.20-1.00); Monocytes % (A) 12.9 %; NRBC Per 100 WBC 0 X 10*3/uL (0.00-0.01); Neutrophils # (A) 5.17 X 10*3/uL (1.80-7.70); Neutrophils % (A) 64.2 %; Platelet Count 188 X 10*3/uL (140-440); RBC 3.58 X 10*6/uL (4.10-5.20); RDW 14.1 % (11.5-14.5); WBC 8.06 X 10*3/uL (4.50-10.00)
[2024-09-23 15:56] LABS: Erythrocyte Sedimentation Rate 3 mm/Hr (0-30)
[2024-09-23 15:59] LABS: ALT 14 U/L (8-44); AST 21 U/L (13-35); C Reactive Protein <0.30 mg/dL (0.00-0.80)
== END | disposition home or self-care (01) ==
LOC: LABWHC1 11:49
PROVIDERS: ATTEND Internal Medicine Rheumatology
DX: M06.9 Rheumatoid arthritis, unspecified (principal)
CPT/HCPCS: 36415; 82565; 84450; 84460; 85025; 85652; 86140